=== PATIENT | female | born 1980 | race Caucasian/White ===

== ENCOUNTER 2017-10-03 06:54 | Emergency (ER) | payer OTHER ==
[2017-10-03] MEDS ORDERED: Ketorolac Tromethamine 30 MG/ML VIAL ONE (08:25)
[2017-10-03] MEDS ORDERED: Acetaminophen 325 MG TAB ONE (08:25)
--- NOTE | 2017-10-03 09:12 | CT ---
CT BRAIN WITHOUT CONTRAST: Date: 10/03/17 HISTORY: Trauma. Patient fell and hit back of head, headache. FINDINGS: Comparison made with exam of 07/24/15. No evidence of infarct, hemorrhage, midline shift, or abnormal extra-axial fluid collections are seen . The ventricular size is normal and the basilar cisterns are patent. The bony calvarium is intact. T he visualized paranasal sinuses and mastoid air cells are well aerated. 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 IMPRESSION: No CT evidence of acute intracranial process. POS: [facility]
--- NOTE | 2017-10-03 09:17 | RAD ---
LEFT HIP 2 VIEWS: Date: 10/03/17 HISTORY: Fall. Left hip pain. FINDINGS/IMPRESSION: No acute fracture or dislocation is seen. An IUD is present. POS: [facility]
--- NOTE | 2017-10-03 09:17 | RAD ---
LEFT SHOULDER 3 VIEWS: Date: 10/03/17 HISTORY: Fall. Left shoulder pain. FINDINGS/IMPRESSION: Comparison made with exam of 09/05/13. No acute fracture or dislocation is identified. POS: [facility]
== END 2017-10-03 09:49 | disposition home or self-care (01) ==
LOC: ERS 06:54
DX: S70.02XA Contusion of left hip, initial encounter (principal); S40.012A Contusion of left shoulder, initial encounter; S00.03XA Contusion of scalp, initial encounter; G43.909 Migraine, unspecified, not intractable, without status migrainosus; I10 Essential (primary) hypertension; Z79.899 Other long term (current) drug therapy; W01.0XXA Fall on same level from slipping, tripping and stumbling without subsequent striking against object, initial encounter
CPT/HCPCS: 70450; 96372; J1885

== ENCOUNTER 2017-11-30 12:33 | Outpatient (CLI) | payer OTHER | END 2017-11-30 12:34 | disposition home or self-care (01) | LOC: BICMRI 12:33 | PROVIDERS: ATTEND Psychiatry & Neurology Neurology | DX: G25.0 Essential tremor (principal); G25.5 Other chorea; R55 Syncope and collapse | CPT/HCPCS: 70551; 72040 ==

== ENCOUNTER 2018-04-26 09:10 | Outpatient (CLI) | payer OTHER ==
[2018-04-26] MEDS ORDERED: ISOVUE-370 76%-LOCM 1 ML ONE (10:40)
--- NOTE | 2018-04-26 12:16 | CT ---
CT ANGIOGRAM OF ABDOMINAL AORTA WITH BILATERAL LOWER EXTREMITY RUNOFF: Date: 04/26/18 HISTORY: Jose-Danlos syndrome. Fatigue. Weakness. Multiple falls. TECHNIQUE: CT angiogram of abdominal aorta and bilateral lower extremity runoff performed in the axial plane. Th ree-dimensional reformatted images are submitted for interpretation. FINDINGS: CHEST CT: Dependent atelectatic changes. There is appropriate arterial phase enhancement of the liver, spleen, pancreas, and adrenal glands. There is symmetric enhancement of the kidneys. No obstructive uropathy. There is nonspecific enhancement involving the gallbladder. No mesenteric mass, lymphadenopathy, free air, or free fluid. Limited evaluation of the alimentary ca nal by the lack of oral contrast administration. No evidence of bowel obstruction. CT PELVIS: Intrauterine device is noted. Uterus and right adnexal structures are unremarkable. Hypodensity in th e left adnexa measuring 4.1 x 3.2 cm has an attenuation coefficient of 4 Hounsfield units suggesting a left ovarian cyst. Trace amount of free fluid may be present in the pelvis. There are no lytic or blastic lesions in the osseous structures. CT ANGIOGRAM OF AORTA: Ascending thoracic aorta, abdominal aorta, and aortic bifurcation have appropriate enhancement and patito allen diameter. The celiac artery origin, superior mesenteric artery origin, inferior mesenteric deborah ry origin, and bilateral renal artery are unremarkable. Note, there are two right renal arteries and a solitary left renal artery. Aortic bifurcation is unremarkable. Both common iliac arteries, interna l iliac arteries, and external iliac arteries are patent. No significant stenosis or aneurysm. Right lower extremity: The entire right lower extremity arterial system is patent. No stenosis. No aneurysm. Left lower extremity: The entire left lower extremity arterial system is patent. No significant stenosis or aneurysm. IMPRESSION: 1. No evidence of aneurysm with regards to the aorta or either lower extremity arterial system. 2. Dependent atelectasis changes. 3. Probable left ovarian cyst. Follow-up ultrasound in 6-8 weeks is recommended to ensure resolution . POS: [facility]
== END 2018-04-26 09:11 | disposition home or self-care (01) ==
LOC: BICCT 09:10
PROVIDERS: ATTEND Internal Medicine Cardiovascular Disease
DX: Q79.6 Ehlers-Danlos syndromes (principal); I47.1 Supraventricular tachycardia
CPT/HCPCS: 75635

== ENCOUNTER 2018-04-29 13:11 | Emergency (ER) | payer OTHER ==
[2018-04-29 14:58] LABS: BHCG - Serum Negative (NEGATIVE); Pregs Control Background? CLEAR/WHITE (CLR/WHITE); Pregs Control Bar Appear? YES (CONTROL BAR)
[2018-04-29 15:10] LABS: Hemoglobin 13.6 g/dL (12.0-16.0); Mean Corpuscular HGB CONC 35.3 g/dL (32.0-36.0); Mean Platelet Volume 9.6 fL (7.4-10.4); Platelet Count 229 thou/uL (130-400); RBC Distribution Width 11.4 % (11.5-14.5); Red Blood Cell (RBC) Count 3.68 mill/uL (4.20-5.40); White Blood Cell (WBC) Count 6.5 thou/uL (4.8-10.8)
[2018-04-29 15:11] LABS: ALT (SGPT) 35 U/L (8-55); AST (SGOT) 25 U/L (5-34); Albumin 4.1 g/dL (3.5-5.0); Alkaline Phosphatase 65 U/L (40-150); Anion Gap 12 mmol/L (10-20); BUN (Urea Nitrogen) 4 mg/dL (7.0-18.7); Bilirubin, Total 0.3 mg/dL (0.2-1.2); CK (CPK) 77 U/L (29-168); Calc. Creatinine Clearance 0 mL/min (70-130); Calcium 9.2 mg/dL (7.8-10.44); Carbon Dioxide 28 mmol/L (22-29); Chloride 108 mmol/L (98-107); Estimated GFR-MDRD Greater than 90; Glucose 87 mg/dL (70-105); Potassium 4.1 mmol/L (3.5-5.1); Protein, Total 7.1 g/dL (6.0-8.3); Sodium 144 mmol/L (136-145)
[2018-04-29 15:31] LABS: #Basophils 0.1 thou/uL (0.0-0.2); #Eosinphils 0.2 thou/uL (0.0-0.7); #Monocytes 0.5 thou/uL (0.11-0.59); #Neutrophils 3.8 thou/uL (1.40-6.50); %Basophils 1.1 % (0.0-1.0); %Eosinophils 2.4 % (0.0-10.0); %Lymphocytes 30.9 % (21.0-51.0); %Neutrophils 57.6 % (42.0-75.0); PLT Morphology Comment Appears Adequate
[2018-04-29] MEDS ORDERED: Ketorolac Tromethamine 30 MG/ML VIAL ONE (15:41)
--- NOTE | 2018-04-29 15:46 | RAD ---
TWO VIEWS CHEST: DATE: 04/29/2018. PROVIDED CLINICAL HISTORY: Chest pain. FINDINGS: Cardiac and mediastinal silhouette is within normal limits. Lungs appear clear. No pleural fluid or pneumothorax apparent. IMPRESSION: No evidence for an acute cardiopulmonary process. POS: [facility]
--- NOTE | 2018-05-04 13:17 | EKG ---
Test Reason : Blood Pressure : / mmHG Vent. Rate : 072 BPM Atrial Rate : 072 BPM P-R Int : 114 ms QRS Dur : 070 ms QT Int : 404 ms P-R-T Axes : 048 -16 028 degrees QTc Int : 442 ms Normal sinus rhythm Normal ECG Confirmed by MIK KENNEY DO ([id number]), desk editor SMILEY QUEEN ([id number]) on 05/04/2018 1:17:24 PM Referred By: Confirmed By:MIK KENNEY DO
== END 2018-04-29 16:16 | disposition home or self-care (01) ==
LOC: ERS 13:11
DX: R00.2 Palpitations (principal); R07.89 Other chest pain; Q79.6 Ehlers-Danlos syndromes; G43.909 Migraine, unspecified, not intractable, without status migrainosus; I10 Essential (primary) hypertension; F17.210 Nicotine dependence, cigarettes, uncomplicated; Z79.899 Other long term (current) drug therapy
CPT/HCPCS: 71046; 80053; 82550; 84484; 84703; 85025; 93005; 96374; J1885

== ENCOUNTER 2018-05-29 15:22 | Emergency (ER) | payer OTHER ==
[2018-05-29 16:17] LABS: Hemoglobin 11.8 g/dL (12.0-16.0); Mean Corpuscular HGB CONC 33.1 g/dL (32.0-36.0); Mean Corpuscular Hemoglobin 33.9 pg (27.0-31.0); Mean Platelet Volume 8.9 fL (7.4-10.4); Platelet Count 257 thou/uL (130-400); RBC Distribution Width 10.9 % (11.5-14.5)
[2018-05-29 16:34] LABS: Band 2 % (5-11); Eosinophils 1 % (0-10); Lymphocytes 80 % (21-51); MDiff Complete? YES; Monocytes 4 % (0-10); Neutrophil 13 % (42-75); PLT Morphology Comment Appears Adequate
[2018-05-29 16:38] LABS: ALT (SGPT) 23 U/L (8-55); AST (SGOT) 20 U/L (5-34); Acetaminophen Less than 6.0 mcg/mL (10.0-30.0); Alcohol Less than 10 mg/dL (Less than 10); Alkaline Phosphatase 44 U/L (40-150); Anion Gap 10 mmol/L (10-20); BUN (Urea Nitrogen) 7 mg/dL (7.0-18.7); Bilirubin, Total 0.3 mg/dL (0.2-1.2); CK (CPK) 59 U/L (29-168); Calc. Creatinine Clearance 0 mL/min (70-130); Calcium 8.7 mg/dL (7.8-10.44); Carbon Dioxide 27 mmol/L (22-29); Chloride 108 mmol/L (98-107); Estimated GFR-MDRD 84; Globulin 2.7 g/dL (2.4-3.5); Glucose 95 mg/dL (70-105); Lipase 60 U/L (8-78); Potassium 3.8 mmol/L (3.5-5.1); Protein, Total 6.7 g/dL (6.0-8.3); Salicylate Less than 8.0 mg/dL (15.0-30.0); Sodium 141 mmol/L (136-145)
--- NOTE | 2018-05-29 16:41 | RAD ---
SINGLE VIEW OF THE CHEST: COMPARISON: 09/30/2015. HISTORY: Chest pain after a fall. FINDINGS: Single view of the chest shows a normal sized cardiomediastinal silhouette. There is no evidence of c onsolidation, mass, or pleural effusion. The bones are unremarkable. IMPRESSION: No evidence of acute cardiopulmonary disease. POS: [facility]
== END 2018-05-29 17:32 | disposition home or self-care (01) ==
LOC: ERS 15:22
DX: R07.89 Other chest pain (principal); I10 Essential (primary) hypertension; F17.210 Nicotine dependence, cigarettes, uncomplicated; Q79.6 Ehlers-Danlos syndromes; G43.909 Migraine, unspecified, not intractable, without status migrainosus; Z79.899 Other long term (current) drug therapy; W19.XXXA Unspecified fall, initial encounter
CPT/HCPCS: 36415; 71045; 80053; 80307; 82550; 83690; 84484; 85025; 93005

== ENCOUNTER 2018-07-12 13:46 | Day surgery (SDC) | payer OTHER ==
[2018-07-11 10:06] VITALS: BMI 18.3
[2018-07-12] MEDS ORDERED: Lidocaine 1% PF 5 ML VIAL ONE (15:15)
[2018-07-12] MEDS ORDERED: PROPOFOL 200 MG/20 ML VIAL ONE (15:15)
[2018-07-12 15:37] LABS: #Basophils 0.1 thou/uL (0.0-0.2); #Eosinphils 0.1 thou/uL (0.0-0.7); #Lymphocytes 2.5 thou/uL (1.20-3.40); #Monocytes 0.4 thou/uL (0.11-0.59); #Neutrophils 5.4 thou/uL (1.40-6.50); %Eosinophils 0.7 % (0.0-10.0); %Lymphocytes 29.7 % (21.0-51.0); %Monocytes 5.2 % (0.0-10.0); %Neutrophils 63.4 % (42.0-75.0); Hemoglobin 12.8 g/dL (12.0-16.0); Mean Corpuscular HGB CONC 33.6 g/dL (32.0-36.0); Mean Corpuscular Hemoglobin 34.6 pg (27.0-31.0); Mean Platelet Volume 8.8 fL (7.4-10.4); Platelet Count 306 thou/uL (130-400); Red Blood Cell (RBC) Count 3.68 mill/uL (4.20-5.40); White Blood Cell (WBC) Count 8.5 thou/uL (4.8-10.8)
[2018-07-12] MEDS ORDERED: Fentanyl 100 MCG/2 ML VIAL ONE ×2 (15:50→17:50)
[2018-07-12] MEDS ORDERED: Bacitracin Zinc Ointment 30 gm TUBE ONE (15:52)
[2018-07-12] MEDS ORDERED: Sodium Chloride 0.9% 0 ML ONE (15:52)
[2018-07-12] MEDS ORDERED: Bupivacaine PF 0.5% 30 ML VIAL ONE (15:53)
[2018-07-12 16:16] LABS: BHCG - Serum Negative (NEGATIVE); Pregs Control Background? CLEAR/WHITE (CLR/WHITE); Pregs Control Bar Appear? YES (CONTROL BAR)
[2018-07-12] MEDS ORDERED: Ketorolac Tromethamine 30 MG/ML VIAL ONE ×2 (17:31)
[2018-07-12] MEDS ORDERED: SUMAtriptan Succinate 50 MG TAB PO SCH (17:45)
--- NOTE | 2018-07-12 20:25 | OP ---
DATE OF PROCEDURE: 07/12/2018 PREOPERATIVE DIAGNOSIS: Foreign body radiodense palmar, ulnar left ring finger distal phalanx. PROCEDURES PERFORMED: 1. Digital nerve neuroplasty under magnification. 2. Foreign body removal, 3 x 0.5 x 1.5 mm glass, left ulnar distal phalanx aspect. TOURNIQUET TIME: 8 minutes. ESTIMATED BLOOD LOSS: 3 mL. ANESTHESIA: General LMA technique augmented by 10 mL of 0.5% Marcaine metacarpophalangeal block. DESCRIPTION OF PROCEDURE: After successful general endotracheal anesthesia, the limb was prepped and draped. We then did a time-out appropriately identifying the area and the finger. We then blocked with the 10 mL of 0.5% Marcaine MP joint level. The patient then had the C-arm brought to the field to confirm, where the mass was located, it was palmar and slightly more ulnar than central over the distal third of distal phalanx. We made an incision over the area that was 4 mm to 5 mm wide, dissected, and after about 2 to 3 dissection with the tenotomy scissors, we visualized and protected 1 of the terminal branches of the digital nerve and just radial to this, there was a glass piece that caused a against the dissecting scissors. We dissected around this and the glass was easily lifted and removed. Photograph was taken. The patient then had the C-arm brought back to the field. There was no further glass seen. We curetted the cavity on the skin created by the glass, which had its long axis oriented perpendicular to the skin. We then removed the glass, irrigated to further radiographs with the C-arm, did not see any mass, did not palpate any mass, did not visualize any mass either on radiographs or in the wound. Tourniquet was released. Hemostasis was obtained. Wound was closed with interrupted 4-0 nylon simple pattern. Bulky dressing was applied. The patient left the operating room without evidence of anesthetic operative complication. Job ID: [id number]
--- NOTE | 2018-07-12 20:46 | RAD ---
FOUR VIEWS OF THE LEFT FINGERS: 07/12/18 INDICATION: Removal of foreign body. IMPRESSION: Submitted images demonstrate no residual foreign body grossly evident. No acute fracture is evident. Fluoroscopic time was 19.1 seconds. Total exposure was 0.43 mGy. POS: [facility]
--- NOTE | 2018-07-14 06:55 | EKG ---
Test Reason : PREOP Blood Pressure : / mmHG Vent. Rate : 086 BPM Atrial Rate : 086 BPM P-R Int : 114 ms QRS Dur : 070 ms QT Int : 366 ms P-R-T Axes : 073 017 054 degrees QTc Int : 437 ms Poor data quality, interpretation may be adversely affected Normal sinus rhythm Normal ECG When compared with ECG of 29-MAY-2018 15:36, No significant change was found Confirmed by GRADY KNOWLES ([id number]) on 07/14/2018 6:54:51 AM Referred By: MARIE Confirmed By:GRADY KNOWLES
== END 2018-07-12 18:52 | disposition home or self-care (01) ==
LOC: SDC 13:46
PROVIDERS: ATTEND Orthopaedic Surgery Hand Surgery
PROC: 0KCD0ZZ Extirpation of Matter from Left Hand Muscle, Open Approach (ICD-10-PCS; principal; 2018-07-12)
DX: M79.5 Residual foreign body in soft tissue (principal); G43.909 Migraine, unspecified, not intractable, without status migrainosus; F17.210 Nicotine dependence, cigarettes, uncomplicated; G25.2 Other specified forms of tremor; Z79.899 Other long term (current) drug therapy; Z88.8 Allergy status to other drugs, medicaments and biological substances; W45.8XXA Other foreign body or object entering through skin, initial encounter
CPT/HCPCS: 36415; 76000; 84703; 85025; 85652; 93005; 93010; J1885; J2001; J2704; J3010; J3490; S0020

== ENCOUNTER 2018-07-16 06:44 | Emergency (ER) | payer OTHER ==
[2018-07-16 07:30] LABS: #Basophils 0.1 thou/uL (0.0-0.2); #Eosinphils 0.2 thou/uL (0.0-0.7); #Lymphocytes 1.9 thou/uL (1.20-3.40); #Monocytes 0.4 thou/uL (0.11-0.59); #Neutrophils 3.8 thou/uL (1.40-6.50); %Eosinophils 2.5 % (0.0-10.0); %Neutrophils 60.5 % (42.0-75.0); Hemoglobin 13.9 g/dL (12.0-16.0); Mean Corpuscular HGB CONC 32.9 g/dL (32.0-36.0); Mean Corpuscular Hemoglobin 33.8 pg (27.0-31.0); Mean Platelet Volume 8.9 fL (7.4-10.4); Platelet Count 291 thou/uL (130-400); RBC Distribution Width 10.8 % (11.5-14.5); Red Blood Cell (RBC) Count 4.11 mill/uL (4.20-5.40); White Blood Cell (WBC) Count 6.3 thou/uL (4.8-10.8)
[2018-07-16 07:31] LABS: Base Excess-Venous -0.7 mmol/L (-2.0 to 3.0); Bicarbonate (HCO3v) 25.3 mmol/L (22.0-28.0); CO2 Tension (PvCO2) 45.5 mmHg (40.0-50.0); Calcium, Ionized 1.12 mmol/L (See Comments:); Chloride 110 mmol/L (98-107); Hemoglobin - Calc 14.6 g/dL (12.0-16.0); O2 Tension (PvO2) 29.2 mmHg (35.0-45.0); Potassium 3.8 mmol/L (3.5-5.1); Sodium 143 mmol/L (138-145); T. Carbon Dioxide 26.7 mmol/L (22.0-28.0); pH (Venous) 7.353 (7.320-7.430)
[2018-07-16 07:40] LABS: BHCG - Serum Negative (NEGATIVE); Pregs Control Background? CLEAR/WHITE (CLR/WHITE); Pregs Control Bar Appear? YES (CONTROL BAR)
[2018-07-16 07:44] LABS: ALT (SGPT) 10 U/L (8-55); AST (SGOT) 13 U/L (5-34); Acetaminophen Less than 6.0 mcg/mL (10.0-30.0); Albumin 4.2 g/dL (3.5-5.0); Alcohol Less than 10 mg/dL (Less than 10); Alkaline Phosphatase 78 U/L (40-150); Anion Gap 12 mmol/L (10-20); BUN (Urea Nitrogen) 8 mg/dL (7.0-18.7); Bilirubin, Total 0.3 mg/dL (0.2-1.2); Calc. Creatinine Clearance 0 mL/min (70-130); Calcium 9.4 mg/dL (7.8-10.44); Carbon Dioxide 26 mmol/L (22-29); Chloride 107 mmol/L (98-107); Estimated GFR-MDRD 83; Glucose 114 mg/dL (70-105); Protein, Total 7.2 g/dL (6.0-8.3); Salicylate Less than 8.0 mg/dL (15.0-30.0); Sodium 141 mmol/L (136-145)
[2018-07-16] MEDS ORDERED: Morphine 4 MG/ML VIAL ONE ×3 (08:19→11:28)
[2018-07-16] MEDS ORDERED: Ondansetron PF 4 MG/2 ML Vial ONE (08:26)
[2018-07-16 08:31] LABS: Bilirubin Negative (Negative); Blood, Urine Negative (Negative); Clarity CLEAR (Clear); Glucose, Urine (Dipstick) Negative (Negative); Leukocyte Negative (Negative); Nitrite Negative (Negative); Protein, Urine (Dipstick) Negative (Neg-Trace); Specific Gravity, Urine 1.008 (1.002-1.036); Urobilinogen 0.2 mg/dL (0.2-1.0)
[2018-07-16 08:39] LABS: Amphetamine Detected (NotDetected); Barbiturates Screen Detected (NotDetected); Benzodiazepine Screen Detected (NotDetected); Cocaine Metabolite Screen Not Detected (NotDetected); Medtox Control Line Valid? VALID (VALID); Medtox Reader # READER 4; Methadone Not Detected (NotDetected); Methamphetamine Not Detected (NotDetected); Opiate Screen Not Detected (NotDetected); Oxycodone Screen Not Detected (NotDetected); Phencyclidine (PCP) Not Detected (NotDetected); THC/Cannabinoid Screen Not Detected (NotDetected); Tricyclic Screen Not Detected (NotDetected)
--- NOTE | 2018-07-16 09:53 | RAD ---
CHEST 1 VIEW: COMPARISON: 05/29/2018. HISTORY: Abnormal sensations in the body. FINDINGS: Normal cardiac silhouette. Lungs and pleural spaces are clear. No pneumothorax or osseous abnormali ties. IMPRESSION: No acute cardiopulmonary process. POS: [facility]
[2018-07-16] MEDS ORDERED: Lorazepam 2 MG/ML VIAL ONE (10:24)
[2018-07-16] MEDS ORDERED: Morphine 2 MG/ML SYRINGE ONE ×2 (11:27→11:31)
--- NOTE | 2018-07-16 11:32 | CT ---
CT ANGIOGRAM OF THE CHEST AND ABDOMEN: DATE: 07/16/2018. HISTORY: Pain, shortness of breath, nausea. TECHNIQUE: Axial CT imaging is obtained at 2.5 mm intervals from the thoracic inlet through the aortic bifurcati on with IV contrast using a CT angiogram protocol. Coronal and sagittal 3D reformatted imaging obtai jesika. FINDINGS: Partially imaged thyroid gland is enlarged and heterogeneous with subcentimeter hypodense nodules wit hin the left lobe. No lymphadenopathy in the axillary, mediastinal, or hilar regions noted. The ascending aorta, the origin of the great vessels, and the descending thoracic aorta demonstrate n o evidence for aneurysm or dissection. No pneumothorax is evident on either side. Minimal increased linear density is noted in the left lower lobe suggesting volume loss or scar. No discrete pulmonary parenchymal mass lesion or nodule noted. Review of osseous structures of the chest demonstrate no acute findings. Arterial phase imaging of the spleen and liver appears grossly unremarkable. Pancreas, gallbladder, adrenal glands, and kidneys demonstrate no acute findings. The pelvis is not imaged on this exam. Lack of oral contrast limits assessment of the bowel. Imaged bowel appears grossly unremarkable. Abdominal aorta demonstrates no evidence for aneurysm or dissection. Celiac axis, superior mesenteri c artery, and inferior mesenteric artery are patent. Two patent renal arteries noted on the right. Single patent left renal artery present. No lymphadenopathy is identified in the abdomen or pelvis. Review of the osseous structures of the abdomen demonstrates bilateral L5 pars defects. IMPRESSION: No evidence for aneurysm or dissection of the thoracic or abdominal aorta. POS: [facility]
--- NOTE | 2018-07-16 13:21 | MRI ---
CERVICAL SPINE MRI WITHOUT CONTRAST: DATE: 07/16/2018. COMPARISON: None. HISTORY: Tingling sensation in chest, radiculopathy. TECHNIQUE: Multiplanar, multisequence MR imaging of the cervical spine provided without contrast media. FINDINGS: The sagittal STIR imaging demonstrates no focal area of osseous marrow edema. Cervical vertebral body height and alignment appears within normal limits. No prevertebral soft tiss ue abnormality. C2-3: Intervertebral disk height and signal intensity within normal limits with no significant centr al canal or neural foraminal stenosis. C3-4: Minimal disk bulge with no central canal or neural foraminal stenosis. C4-5: Mild disk bulge. Partial effacement of ventral thecal sac. Mild facet and uncovertebral oste ophyte formation on the right. No significant central canal or neural foraminal stenosis. C5-6: No significant central canal or neural foraminal stenosis. C6-7: Mild disk bulge with small central disk protrusion partially effacing ventral thecal sac with no significant central canal or neural foraminal stenosis. C7-T1: Unremarkable. No focal area of abnormal signal intensity is identified within the cervical cord. Regional bone mar row signal intensity appears within normal limits. IMPRESSION: Mild degenerative changes of the cervical spine as detailed above. POS: [facility]
[2018-07-16] MEDS ORDERED: ISOVUE-370 76%-LOCM 1 ML ONE (16:55)
== END 2018-07-16 11:45 | disposition home or self-care (01) ==
LOC: ERS 06:44
DX: G62.9 Polyneuropathy, unspecified (principal); G43.909 Migraine, unspecified, not intractable, without status migrainosus; I10 Essential (primary) hypertension; F31.9 Bipolar disorder, unspecified; F41.9 Anxiety disorder, unspecified; F17.210 Nicotine dependence, cigarettes, uncomplicated; Z79.899 Other long term (current) drug therapy
CPT/HCPCS: 71045; 71275; 72141; 80053; 80306; 80307; 81003; 82330; 82803; 83735; 84443; 84484; 84703; 85025; 85379; 93005; 96361; 96374; 96375; 96376; J2060; J2270; J2405; Q9966

== ENCOUNTER 2019-02-14 08:05 | Outpatient (CLI) | payer OTHER ==
--- NOTE | 2019-02-14 08:29 | RAD ---
EXAM: Lumbar spine 2 views: HISTORY: Lumbar pain without injury COMPARISON: None FINDINGS: Probable remote fractures of the left L2 and L3 transverse processes. Probable pars defect at L5 without evidence for significant spondylolisthesis. No evidence for acute fracture or dislocation involving the visualized spine. There are disc osteophytosis and facet arthrosis changes. No evidence for malalignment. No evidence for a bone lesion. IMPRESSION: Spondylosis. Probable pars defect at L5 without evidence for significant spondylolisthesis.
--- NOTE | 2019-02-14 08:31 | RAD ---
Exam: Left shoulder 2 views: HISTORY: Left shoulder pain without injury COMPARISON: None FINDINGS: No evidence for fracture, dislocation, or other significant acute osseous abnormality. IMPRESSION: No significant acute process.
== END 2019-02-14 08:06 | disposition home or self-care (01) ==
LOC: BICRAD 08:05
PROVIDERS: ATTEND Family Medicine
DX: M25.512 Pain in left shoulder (principal); M54.5 Low back pain; M47.816 Spondylosis without myelopathy or radiculopathy, lumbar region
CPT/HCPCS: 72100

== ENCOUNTER 2019-05-20 11:05 | Inpatient (IN) | payer OTHER ==
[2019-05-20 11:58] LABS: #Basophils 0.1 thou/uL (0.0-0.2); #Eosinphils 0.2 thou/uL (0.0-0.7); #Lymphocytes 2.3 thou/uL (1.20-3.40); #Monocytes 0.3 thou/uL (0.11-0.59); %Basophils 1.9 % (0.0-1.0); %Eosinophils 3.8 % (0.0-10.0); %Lymphocytes 47.2 % (21.0-51.0); %Monocytes 6.3 % (0.0-10.0); %Neutrophils 40.9 % (42.0-75.0); Hemoglobin 12.6 g/dL (12.0-16.0); Mean Corpuscular HGB CONC 33.2 g/dL (32.0-36.0); Mean Corpuscular Hemoglobin 33.6 pg (27.0-31.0); Platelet Count 197 thou/uL (130-400); RBC Distribution Width 11.7 % (11.5-14.5); Red Blood Cell (RBC) Count 3.76 mill/uL (4.20-5.40); White Blood Cell (WBC) Count 4.8 thou/uL (4.8-10.8)
--- NOTE | 2019-05-20 11:59 | RAD ---
CHEST 1 VIEW: HISTORY: Altered mental status. COMPARISON: Radiograph . FINDINGS: The lungs are clear. No pneumothorax or effusion. Cardiac silhouette and mediastinal contours are w ithin normal limits. No acute osseous abnormality. IMPRESSION: No acute intrathoracic abnormality nor significant change. POS: [facility]
[2019-05-20] MEDS ORDERED: Lidocaine 1% w/Epinephrine 1:100K 20 ML VIAL ONE (12:04)
--- NOTE | 2019-05-20 12:09 | CT ---
EXAM: CT brain without contrast HISTORY: Fall in the restroom with laceration above the left eye. COMPARISON: 10/03/2017 TECHNIQUE: Multiple contiguous axial images were obtained and a CT of the brain without contrast. FINDINGS: The brain is normal in morphology and attenuation without focal lesions or confluent areas of infarction. There is no evidence of hydrocephalus, intracranial hemorrhage, or extra-axial fluid collection. The calvarium and overlying soft tissues are unremarkable. A left ZMC fracture is partially visualize d. Fluid is seen in the left maxillary sinus. IMPRESSION: 1. No evidence of acute intracranial abnormality 2. Left ZMC fracture
--- NOTE | 2019-05-20 12:10 | CT ---
EXAM: CT of the cervical spine without contrast HISTORY: Neck pain after head/facial trauma COMPARISON: None TECHNIQUE: Multiple contiguous axial images were obtained in a CT of the cervical spine without contr ast. Sagittal and coronal reformats were performed. FINDINGS: The vertebral bodies and intervertebral discs demonstrate normal height and alignment witho ut fracture or subluxation. No degenerative changes are present. No prevertebral soft tissue swelling is seen. The posterior facets are well aligned. Normal alignment of the skull base with the cervical spine is seen. The lung apices and cervical soft tissues are unremarkable. IMPRESSION: No evidence of acute osseous abnormality of the cervical spine.
[2019-05-20 12:14] LABS: Base Excess-Venous 2.8 mmol/L (-2.0 to 3.0); Bicarbonate (HCO3v) 31.3 mmol/L (22.0-28.0); CO2 Tension (PvCO2) 65.6 mmHg (40.0-50.0); Calcium, Ionized 1.22 mmol/L (See Comments:); Chloride 107 mmol/L (98-107); Sodium 147 mmol/L (138-145); T. Carbon Dioxide 33.3 mmol/L (22.0-28.0); vO2 Saturation-calc 50.2 % (60.0-85.0)
[2019-05-20 12:18] LABS: BHCG - Serum Negative (NEGATIVE); Pregs Control Background? CLEAR/WHITE (CLR/WHITE); Pregs Control Bar Appear? YES (CONTROL BAR)
[2019-05-20 12:20] LABS: Alcohol Less than 10 mg/dL (Less than 10); Salicylate Less than 8.0 mg/dL (15.0-30.0)
[2019-05-20 12:22] LABS: ALT (SGPT) 10 U/L (8-55); AST (SGOT) 19 U/L (5-34); Albumin 4.1 g/dL (3.5-5.0); Alkaline Phosphatase 53 U/L (40-110); Anion Gap 10 mmol/L (10-20); BUN (Urea Nitrogen) 11 mg/dL (7.0-18.7); Bilirubin, Total Less than 0.2 mg/dL (0.2-1.2); CK (CPK) 77 U/L (29-168); Calc. Creatinine Clearance 0 mL/min (70-130); Calcium 8.9 mg/dL (7.8-10.44); Carbon Dioxide 30 mmol/L (22-29); Chloride 109 mmol/L (98-107); Estimated GFR-MDRD 81; Globulin 2.9 g/dL (2.4-3.5); Glucose 93 mg/dL (70-105); Magnesium 1.9 mg/dL (1.6-2.6); Potassium 4.1 mmol/L (3.5-5.1); Sodium 145 mmol/L (136-145)
[2019-05-20] MEDS ORDERED: Acetaminophen 500 MG TAB ONE (12:33)
[2019-05-20 12:38] LABS: Thyroid Stimulating Hormone 1.6615 uIU/mL (0.35-4.94)
[2019-05-20] MEDS ORDERED: Bacitracin 1 PK ONE (13:11)
[2019-05-20 13:20] LABS: Digoxin 0.31 ng/mL (0.8-2.0)
[2019-05-20 13:25] LABS: Bilirubin Negative (Negative); Blood, Urine Negative (Negative); Clarity Clear (Clear); Glucose, Urine (Dipstick) Normal (Negative); Leukocyte Negative Leu/uL (Negative); Nitrite Negative (Negative); Protein, Urine (Dipstick) Negative (Neg-Trace); Urobilinogen Normal mg/dL (Less than 2)
[2019-05-20 13:36] LABS: Amphetamine Not Detected (NotDetected); Barbiturates Screen Detected (NotDetected); Benzodiazepine Screen Detected (NotDetected); Cocaine Metabolite Screen Not Detected (NotDetected); Medtox Control Line Valid? VALID (VALID); Medtox Reader # READER 1; Methadone Not Detected (NotDetected); Methamphetamine Not Detected (NotDetected); Opiate Screen Not Detected (NotDetected); Oxycodone Screen Not Detected (NotDetected); Phencyclidine (PCP) Not Detected (NotDetected); THC/Cannabinoid Screen Not Detected (NotDetected); Tricyclic Screen Detected (NotDetected)
[2019-05-20] MEDS ORDERED: Ketorolac Tromethamine 30 MG/ML VIAL ONE (13:58)
--- NOTE | 2019-05-20 14:33 | CT ---
EXAM: CT face without contrast HISTORY: Fall while going to the bathroom with left facial fracture COMPARISON: None TECHNIQUE: Multiple contiguous axial images were obtained and a CT of the face without contrast. Sagi ttal and coronal reformats were performed. FINDINGS: There is a moderately displaced left ZMC fracture. No displaced fracture of the zygomatic a rch is seen. Left periorbital facial soft tissue swelling is seen. The globes and retrobulbar soft tissues are unremarkable. There is no evidence of extraocular muscle entrapment. Fluid is seen in the left maxillary sinus. The other paranasal sinuses are well aerated without evide nce of opacification. The mastoid air cells are well aerated. IMPRESSION: Left ZMC fracture
[2019-05-20] MEDS ORDERED: Acetaminophen 1,000 MG in Premix Bag 1 BAG IVPB PRN (15:52)
[2019-05-20] MEDS ORDERED: Ondansetron PF 4 MG/2 ML Vial IVP PRN (15:52)
--- NOTE | 2019-05-20 15:56 | PDOC.HHP ---
Hospitalist HPI - History of Present Illness Somnolent, fall History of Present Illness: Ms. Lowery is a 39 y/o lady with PMH of Ehler Danlos Syndrome who presents to the ED after having a fall at home. She apparently fell and hit the left side of her face and left shoulder. Patient states she has pain around the left face and left shoulder area. She did not lose concsiousness. She apparently has been quite lethargic as per the mother the past few weeks. She apparently has neurological manifestations of her EDS including tremors and chronic migraines. She takes clonazepam, lunesta, imitrex, esgic, and fluoxetine which the mother states makes her quite lethargic and drowsy most days. Mother states that the dose of these medications was increased in the outpatient over the past couple of months. In the ED, she was found to have hypercarbic respiratory failure with pH of 7.25/CO2 65.6/HCO3 31. She was placed on BiPAP. CT of facial bones demonstrated a left zygomatic fracture. Denies cp, fever, chills, nausea, vomiting, or other associated symptoms. Hospitalist ROS - Review of Systems Constitutional: denies: fever, chills, sweats, weakness, malaise, other Eyes: denies: pain, vision change, conjunctivae inflammation, eyelid inflammation, redness, other ENT: denies: ear pain, ear discharge, nose pain, nose discharge, nose congestion , mouth pain, mouth swelling, throat pain, throat swelling, other Respiratory: reports: shortness of breath. denies: cough, dry, hemoptysis, SOB with excertion, pleuritic pain, sputum, wheezing, other Cardiovascular: denies: chest pain, palpitations, orthopnea, paroxysmal noc. dyspnea, edema, light headedness, other Gastrointestinal: denies: nausea, vomiting, abdominal pain, diarrhea, constipation, melena, hematochezia, other Genitourinary: denies: dysuria, frequency, incontinence, hematuria, retention, other Musculoskeletal: denies: neck pain, shoulder pain, arm pain, back pain, hand pain, leg pain, foot pain, other Skin: denies: rash, lesions, jamaal, bruising, other Neurological: reports: weakness, incoordination. denies: numbness, change in speech, confusion, seizures, other - Medication Medications: Lunesta TueMay 20, 2019 11:17 ARCADIO Hanna Jennifer TABLET : Strength - 3 mg : ORAL Patient Dose: 1 tab(s) Oral once a day (at bedtime). Imitrex oral TueMay 20, 2019 11:17 ARCADIO Hanna Jennifer TABLET : Strength - 100 mg : ORAL Patient Dose: 1 tab(s) Oral As Needed. losartan TueMay 20, 2019 11:17 ARCADIO Hanna Jennifer TABLET : Strength - 25 mg : ORAL Patient Dose: 25 mg Oral once a day (in the morning). clonazePAM TueMay 20, 2019 11:17 ARCADIO Hanna Jennifer TABLET : Strength - 2 mg : ORAL Patient Dose: 3 times a day. Esgic TueMay 20, 2019 11:17 ARCADIO Hanna Jennifer CAPSULE : Strength - 50 mg-325 mg-40 mg : ORAL Patient Dose: Unknown. FLUoxetine TueMay 20, 2019 11:17 ARCADIO Hanna Jennifer CAPSULE : Strength - 10 mg : ORAL Patient Dose: once a day. digoxin oral TueMay 20, 2019 11:45 ARCADIO Hanna Jennifer tablet : Strength - 125 mcg : ORAL Patient Dose: 25 mcg Oral As Needed. atenolol TueMay 20, 2019 11:46 ARCADIO Hanna Jennifer tablet : Strength - 25 mg : ORAL Patient Dose: 1 tab(s) Oral 2 times a day.25MG IN AM, 12.5MG IN PM. 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 Gastrointestinal: reports: no pertinent history Heme/Onc: reports: no pertinent history Hepatobiliary: reports: no pertinent history Psych: reports: Anxiety Musculoskeletal: reports: Other (Ehler Danlos Syndrome) Rheumatologic: reports: no pertinent history Infectious Disease: reports: no pertinent history ENT: reports: no pertinent history Renal/: reports: no pertinent history Endocrine: reports: no pertinent history Dermatology: reports: no pertinent history - Past Surgical History Past Surgical History: reports: Tonsillectomy, Other - Family History Family History: reports: no pertinent history - Social History Smoking Status: Current every day smoker Alcohol: reports: None Drugs: reports: Other (chronic pain medications, medications for anxiety, muscle relaxants) Living Situation: With Family Activity level: independent ambulation - Exam General Appearance: awake alert General - other findings: lethargic Eye: PERRL, anicteric sclera Eye - other findings: left laceration over lateral aspect of orbit ENT: no oropharyngeal lesions, moist mucosa ENT - other findings: mild bruising, left zygomatic area Neck: supple, symmetric, no JVD, no thyromegaly, no lymphadenopathy, no carotid bruit Heart: RRR, no murmur, no gallops, no rubs, normal peripheral pulses Respiratory: CTAB, no wheezes, no rales, no ronchi, normal chest expansion, no tachypnea, normal percussion Gastrointestinal: soft, non-tender, non-distended, normal bowel sounds, no palpable masses, no hepatomegaly, no splenomegaly, no bruit Extremities: no cyanosis, no clubbing, no edema Skin: normal turgor, no lesions, no rashes Neurological: cranial nerve grossly intact, normal sensation to touch, no weakness, no focal deficits, no new deficit Musculoskeletal: normal tone, normal strength, no muscle wasting Psychiatric: normal affect, A&O x 3, lethargic Hospitalist Results - Labs Result Diagrams: 05/20/19 11:44 05/20/19 11:43 Lab results: WBC 4.8 thou/uL (4.8-10.8) 05/20/19 11:44 Hgb 12.6 g/dL (12.0-16.0) 05/20/19 11:44 Hct 38.1 % (36.0-47.0) 05/20/19 11:44 MCV 101.0 fL (78.0-98.0) H 05/20/19 11:44 Plt Count 197 thou/uL (130-400) 05/20/19 11:44 Neutrophils % 40.9 % (42.0-75.0) L 05/20/19 11:44 VBG pCO2 65.6 mmHg (40.0-50.0) H* 05/20/19 12:12 VBG pO2 31.1 mmHg (35.0-45.0) L 05/20/19 12:12 Sodium 145 mmol/L (136-145) 05/20/19 11:43 Potassium 4.1 mmol/L (3.5-5.1) 05/20/19 11:43 Chloride 109 mmol/L (98-107) H 05/20/19 11:43 Carbon Dioxide 30 mmol/L (22-29) H 05/20/19 11:43 BUN 11 mg/dL (7.0-18.7) 05/20/19 11:43 Creatinine 0.79 mg/dL (0.6-1.1) 05/20/19 11:43 Glucose 93 mg/dL (70-105) 05/20/19 11:43 Lactic Acid 0.8 mmol/L (0.5-2.2) 05/20/19 11:43 Calcium 8.9 mg/dL (7.8-10.44) 05/20/19 11:43 Total Bilirubin Less than 0.2 mg/dL (0.2-1.2) L 05/20/19 11:43 AST 19 U/L (5-34) 05/20/19 11:43 ALT 10 U/L (8-55) 05/20/19 11:43 Alkaline Phosphatase 53 U/L (40-110) 05/20/19 11:43 Ammonia 49 umol/L (18-72) 05/20/19 11:44 Creatine Kinase 77 U/L (29-168) 05/20/19 11:43 Troponin I Less than 0.010 ng/mL (< 0.028) 05/20/19 11:44 Serum Total Protein 7.0 g/dL (6.0-8.3) 05/20/19 11:43 Albumin 4.1 g/dL (3.5-5.0) 05/20/19 11:43 Urine Ketones Negative mg/dL (Negative) 05/20/19 12:50 Urine Blood Negative (Negative) 05/20/19 12:50 Urine Nitrite Negative (Negative) 05/20/19 12:50 Ur Leukocyte Esterase Negative Joann/uL (Negative) 05/20/19 12:50 VITAL SIGNS Sun May 20, 2019 14:57 ARCADIO Hanna, Bushra BP: 140/99, Pulse: 52, Resp: 16, Pain: 7, O2 sat: 100, Time: 05/20/2019 14:57. - EKG Interpretation EK lead EKG shows normal sinus rhythm, Rate (beats per minute): 61, Interpretation: normal EKG, Conduction normal, ST segments normal, T waves normal, [place] normal, Clinical impression: Normal EKG. - Radiology Interpretation Chest x-ray Status: report reviewed by me Hospitalist H&P A/P - Problem (1) Acute respiratory failure with hypercapnia Code(s): J96.02 - ACUTE RESPIRATORY FAILURE WITH HYPERCAPNIA Status: Acute (2) Polypharmacy Code(s): Z79.899 - OTHER [facility] [facility] (CURRENT) DRUG THERAPY Status: Acute (3) Respiratory acidosis Code(s): E87.2 - ACIDOSIS Status: Acute (4) Fracture of left zygomatic arch Code(s): S02.40FA - ZYGOMATIC FRACTURE, LEFT SIDE, INIT Status: Acute (5) Left shoulder pain Code(s): M25.512 - PAIN IN LEFT SHOULDER Status: Acute (6) Jose-Danlos syndrome Code(s): Q79.60 - JOSE-DANLOS SYNDROME, UNSPECIFIED Status: Acute (7) Anxiety Code(s): F41.9 - ANXIETY DISORDER, UNSPECIFIED Status: Acute (8) Tremor due to disorder of central nervous system Code(s): R25.1 - TREMOR, UNSPECIFIED; G96.9 - DISORDER OF CENTRAL NERVOUS SYSTEM , UNSPECIFIED Status: Acute - Plan Plan: Admit to IMCU for acute hypercapnic RF. Consult pulmonary team for BiPAP optimization. Continue with BiPAP, ABG repeat tonight This is all contributory to polypharmacy of her home benzos, muscle relaxants, and headache medication Will likely need to decrease dose of benzos for her tremor symptoms and avoid barbituate for headache medicine Will discuss with pharmacy about these medications Left zygomatic arch fracture, ED spoke with Dr. Wilkes, will follow in the outpatient, supportive pain control for now XR of left shoulder Avoid sedative agents. IV Tylenol for fracture related pain. DVT Prophylaxis: SCDs Code status: Full ACP: Mother is surrogate decision maker Dispo: Admit to IMCU. Correction of hypercarbia. Avoid sedative agents for now.
[2019-05-20] MEDS ORDERED: Acetaminophen 325 MG Suppository PR PRN (16:22)
[2019-05-20 16:29] LABS: Actual Bicarbonate (HCO3a) 24.7 mEq/L (22-28); Analyzer IN Cardio ER; Base Excess (BEa) -0.9 mEq/L (-2.0 to +3.0); CO2 Tension 44.5 mmHg (35.0-45.0); Calcium, Ionized 1.16 mmol/L (1.12-1.30); Carboxyhemoglobin (COHb) 1.5 gm% (0.0-3.0); Hemoglobin (Hb) 12.1 g/dL (12.0-16.0); O2 Tension (PaO2) 84.7 mmHg (80.0-100.0); Potassium - ABG Lab 3.71 mmol/L (3.70-5.30); pH, Arterial 7.36 (7.35-7.45)
--- NOTE | 2019-05-20 16:29 | RAD ---
3 views left shoulder: 05/20/2019 COMPARISON: none available HISTORY: Fall, trauma, pain FINDINGS: No fracture or dislocation. No radiopaque foreign body or subcutaneous gas. There is no wid ening of the acromioclavicular or coracoclavicular interspace. IMPRESSION: No acute findings.
[2019-05-20 16:34] LABS: Puncture Site RRA
[2019-05-20 16:35] LABS: ALV-art Gradient 9.405 (0-20)
[2019-05-20 19:40] VITALS: BMI 19.5
[2019-05-20] MEDS ORDERED: predniSONE 20 MG TAB PO SCH (20:15)
[2019-05-20] MEDS: Ketorolac Tromethamine 30 MG/ML VIAL IVP PRN (20:53)
[2019-05-20] MEDS: Acetaminophen 325 MG TAB PO PRN (20:54)
[2019-05-20] MEDS: Sodium Chloride 0.9% 1,000 ML IV SCH (20:55)
[2019-05-21] MEDS: Sodium Chloride 0.9% 1,000 ML IV SCH (02:07)
[2019-05-21 04:10] LABS: Band 1 % (5-11); Hemoglobin 12.2 g/dL (12.0-16.0); Lymphocytes 4 % (21-51); MDiff Complete? YES; Mean Corpuscular HGB CONC 33.5 g/dL (32.0-36.0); Mean Corpuscular Hemoglobin 33.8 pg (27.0-31.0); Mean Platelet Volume 9.3 fL (7.4-10.4); Neutrophil 95 % (42-75); Platelet Count 204 thou/uL (130-400); Platelet Morphology Comment Appears Adequate; RBC Distribution Width 11.8 % (11.5-14.5); Red Blood Cell (RBC) Count 3.62 mill/uL (4.20-5.40); White Blood Cell (WBC) Count 8.9 thou/uL (4.8-10.8)
[2019-05-21 04:24] LABS: Albumin 3.7 g/dL (3.5-5.0); Globulin 2.7 g/dL (2.4-3.5)
[2019-05-21 04:48] LABS: ALT (SGPT) 9 U/L (8-55); AST (SGOT) 13 U/L (5-34); Alkaline Phosphatase 57 U/L (40-110); Anion Gap 11 mmol/L (10-20); BUN (Urea Nitrogen) 11 mg/dL (7.0-18.7); Bilirubin, Total 0.2 mg/dL (0.2-1.2); Calc. Creatinine Clearance 92 mL/min (70-130); Calcium 8.3 mg/dL (7.8-10.44); Carbon Dioxide 26 mmol/L (22-29); Chloride 108 mmol/L (98-107); Estimated GFR-MDRD Greater than 90; Glucose 144 mg/dL (70-105); Potassium 3.8 mmol/L (3.5-5.1); Protein, Total 6.4 g/dL (6.0-8.3); Sodium 141 mmol/L (136-145)
[2019-05-21] MEDS: Acetaminophen 325 MG TAB PO PRN (07:27)
[2019-05-21] MEDS: Ketorolac Tromethamine 30 MG/ML VIAL IVP PRN (07:28)
[2019-05-21] MEDS ORDERED: predniSONE 20 MG TAB PO SCH (08:00)
[2019-05-21 10:24] VITALS: TEMP 99.6
[2019-05-21] MEDS ORDERED: clonazePAM 1 MG TAB PO SCH (15:00)
--- NOTE | 2019-05-21 16:24 | PDISCHARGE ---
Discharge - Disposition Disposition: HOME - Patient Instructions Pre-Printed Education: Fall Prevention in the Home, Adult, [id number] Additional Instructions: Will d/c esgic for now. I have called Dr. Tovar's office and spoke with nurse, they will follow on May.28 and will call for appointment scheduling. Care Plan Goals: FOCUS: Transition from Acute Care after Discharge GOAL: Successful transition to care in the community YOUR TASKS: (1) review all information outlined in your discharge packet (2) follow any instructions outlined in your discharge packet (3) contact your primary care provider if you have questions or need additional assistance - Referrals and PCP Follow-Up Referrals and PCP Follow-Up: Constance Wilkes DDS [Active] - LARRY TOVAR MD [Family Provider] - (Dr. Tovar's office will call you to schedule an appointment for . ) - Activity Instructions Activity:: Activity as Tolerated - Nourishment Instructions Nourishment:: Regular Diet - Equipment/Supply Instructions Equipment/Supplies:: Not Applicable Course - Course Orders, Labs, Meds: Presented with lethargy, shortness of breath, and fall. Admitted for acute hypercarbic respiratory failure. Origin of failure, respiratory acidosis on blood gas. Patient placed on BiPAP therapy and showed improvement in overall acidosis. Patient takes multiple medications at home including benzodiazepine, barbituate combo headache medication, muscle relaxants, chronic pain medication. Polypharamcy likely contributory to symptoms. I personally called her PCP office, Dr. Tovar, and discussed the case with his nurse. We will attempt to remove Esgic, which she takes for chronic migraines, and further dose optimization will be required in the outpatient so that this problem can be avoided in the future. We have scheduled at appointment for her on May.28 for follow up and for her medications to be addressed. 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 Further dose reduction will be needed in outpatient over a long taper. At the time of discharge, patient noted improvement in breathing and overall acidosis had resolved. CT facial bones show Left zygomatic fracture. Dr. Wilkes, oral/maxifillofacial booneron has been called from ED and information regarding follow up to be provided for appointment in 2 weeks. 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 - JOSE-DANLOS SYNDROME, UNSPECIFIED Status: Acute (7) Anxiety Code(s): F41.9 - ANXIETY DISORDER, UNSPECIFIED Status: Acute (8) Tremor due to disorder of central nervous system Code(s): R25.1 - TREMOR, UNSPECIFIED; G96.9 - DISORDER OF CENTRAL NERVOUS SYSTEM , UNSPECIFIED Status: Acute Total time spent on discharge planning and mangement greater than 30 minutes FMR OB H&P: Medications - Current Home Medications: Medication Instructions Recorded Confirmed Type Eszopiclone [Lunesta] 3 mg PO HS 07/25/15 05/20/19 History Promethazine [Phenergan] 25 mg PO BID PRN 07/25/15 05/20/19 History SUMAtriptan Succinate [Imitrex] 100 mg PO Q2HR PRN 07/25/15 05/20/19 History Atenolol 25 mg PO DAILY 07/11/18 05/20/19 History Lisdexamfetamine Dimesylate 40 mg PO DAILY 07/11/18 05/20/19 History [Vyvanse] Losartan Potassium 25 mg PO DAILY 07/11/18 05/20/19 History tiZANidine HCl [Tizanidine HCl] 4 mg PO TID 07/11/18 05/20/19 History FLUoxetine HCl [Prozac] 20 mg PO DAILY 05/20/19 05/20/19 History Gabapentin 300 mg PO TID 05/20/19 05/20/19 History HYDROcodone/Acetaminophen [[place] 1 each PO Q6H PRN 05/20/19 05/20/19 History 7.5-325 Tablet] clonazePAM [Klonopin] 2 mg PO TID 05/20/19 05/20/19 History Allergies/Adverse Reactions: Allergies Allergy/AdvReac Type Severity Reaction Status Date / Time cyclobenzaprine Allergy heart race Verified 05/20/19 19:51 [From Flexeril] levetiracetam Allergy Verified 05/20/19 19:51 metaxalone [From Skelaxin] Allergy increase Verified 05/20/19 19:51 heart rate methocarbamol Allergy mirgranes Verified 05/20/19 19:51 prochlorperazine Allergy burning Verified 05/20/19 19:51 [From Compazine] sensation prochlorperazine edisylate Allergy Verified 05/20/19 19:51 [From Compazine] prochlorperazine maleate Allergy Verified 05/20/19 19:51 [From Compazine] topiramate [From Topamax] Allergy mood Verified 05/20/19 19:51 swings,
[2019-05-22] MEDS ORDERED: LISDEXAMFETAMINE DIMESYLATE 40 MG PO SCH (09:00)
[2019-05-22] MEDS ORDERED: FLUoxetine HCl 20 MG CAP PO SCH (09:00)
== END 2019-05-21 10:51 | disposition home or self-care (01) | DRG 189 ==
LOC: ERS 11:05 → IMCU/EMU 18:56
PROVIDERS: ADMIT Internal Medicine; ATTEND Internal Medicine
DX: J96.02 Acute respiratory failure with hypercapnia (principal); S02.40FA Zygomatic fracture, left side, initial encounter for closed fracture; E87.2 Acidosis; Q79.60 Ehlers-Danlos syndrome, unspecified; T42.4X5A Adverse effect of benzodiazepines, initial encounter; G43.909 Migraine, unspecified, not intractable, without status migrainosus; W01.10XA Fall on same level from slipping, tripping and stumbling with subsequent striking against unspecified object, initial encounter; Z90.89 Acquired absence of other organs; F41.9 Anxiety disorder, unspecified; R25.1 Tremor, unspecified; G96.9 Disorder of central nervous system, unspecified; F17.210 Nicotine dependence, cigarettes, uncomplicated
CPT/HCPCS: 36415; 70450; 70486; 71045; 72125; 80053; 80162; 80306; 80307; 81003; 82140; 82330; 82550; 82803; 82805; 83605; 83735; 84443; 84484; 84703; 85007; 85025; 85027; 85652; 86140; 93005; 94660; A4353; J1885; J7512

== ENCOUNTER 2019-10-15 08:23 | Emergency (ER) | payer OTHER ==
[2019-10-15] MEDS ORDERED: HYDROcodone/Acetaminophen 5/325 mg Tablet ONE (09:04)
[2019-10-15] MEDS ORDERED: Ketorolac Tromethamine 30 MG/ML VIAL ONE (09:30)
[2019-10-15] MEDS ORDERED: Fentanyl 100 MCG/2 ML VIAL ONE (09:33)
[2019-10-15] MEDS ORDERED: Lorazepam 2 MG/ML VIAL ONE (09:33)
[2019-10-15] MEDS ORDERED: Ondansetron ODT 4 MG TAB ONE ×2 (10:05→10:06)
[2019-10-15] MEDS ORDERED: diphenhydrAMINE 25 MG CAP ONE (10:30)
--- NOTE | 2019-10-15 11:32 | RAD ---
LEFT SHOULDER 3 VIEWS: HISTORY: Pain following injury from a fall. COMPARISON: 05/20/2019. FINDINGS: No fracture or dislocation or other acute process. Stable from prior study. IMPRESSION: Unremarkable left shoulder. POS: [facility]
--- NOTE | 2019-10-15 11:34 | RAD ---
RIGHT KNEE 4 VIEWS: HISTORY: Right knee pain following injury from a fall. FINDINGS/IMPRESSION: No fracture, dislocation, or other acute osseous process. POS: [facility]
--- NOTE | 2019-10-15 11:41 | CT ---
BRAIN CT WITHOUT IV CONTRAST: HISTORY: Injury from fall. COMPARISON: 05/20/2019. FINDINGS: Evidence for old left orbital and facial and zygomatic arch fractures. No focal mass or midline shif t. No intra- or extraaxial hemorrhage. IMPRESSION: No acute intracranial process. No mass or bleed. Evidence for old left facial, orbital, and zygomat ic arch fractures which were acute on the 05/20/2019 study. POS: [facility]
--- NOTE | 2019-10-15 11:42 | CT ---
CERVICAL SPINE CT SCAN WITHOUT IV CONTRAST: HISTORY: Injury from a fall. FINDINGS: No fracture, dislocation, or significant malalignment. IMPRESSION: Unremarkable cervical spine CT. POS: [facility]
== END 2019-10-15 10:51 | disposition home or self-care (01) ==
LOC: ERS 08:23
DX: S00.03XA Contusion of scalp, initial encounter (principal); S40.012A Contusion of left shoulder, initial encounter; S80.01XA Contusion of right knee, initial encounter; F07.81 Postconcussional syndrome; R51 Headache; R11.2 Nausea with vomiting, unspecified; G43.909 Migraine, unspecified, not intractable, without status migrainosus; I10 Essential (primary) hypertension; F31.9 Bipolar disorder, unspecified; F41.9 Anxiety disorder, unspecified; F17.210 Nicotine dependence, cigarettes, uncomplicated; Q79.60 Ehlers-Danlos syndrome, unspecified; Z79.899 Other long term (current) drug therapy; W18.30XA Fall on same level, unspecified, initial encounter; Y92.091 Bathroom in other non-institutional residence as the place of occurrence of the external cause
CPT/HCPCS: 70450; 72125; 96372; J1885; J2060; J3010; Q0162; Q0163

== ENCOUNTER 2019-12-22 15:13 | Observation (INO) | payer OTHER ==
[2019-12-22 15:34] LABS: Base Excess-Venous -0.4 mmol/L (-2.0 to 3.0); Bicarbonate (HCO3v) 24.2 mmol/L (22.0-28.0); CO2 Tension (PvCO2) 38.5 mmHg (40.0-50.0); Calcium, Ionized 1.01 mmol/L (See Comments:); Chloride 110 mmol/L (98-107); Hemoglobin - Calc 10.2 g/dL (12.0-16.0); Potassium 3.3 mmol/L (3.5-5.1); Sodium 145 mmol/L (138-145); T. Carbon Dioxide 25.3 mmol/L (22.0-28.0); vO2 Saturation-calc 99.7 % (60.0-85.0)
[2019-12-22 15:47] LABS: #Eosinphils 0.2 thou/uL (0.0-0.7); #Monocytes 0.6 thou/uL (0.11-0.59); #Neutrophils 3.5 thou/uL (1.40-6.50); %Basophils 0.5 % (0.0-1.0); %Eosinophils 2.4 % (0.0-10.0); %Lymphocytes 41.5 % (21.0-51.0); %Monocytes 7.8 % (0.0-10.0); %Neutrophils 47.8 % (42.0-75.0); Hemoglobin 10.5 g/dL (12.0-16.0); Mean Corpuscular HGB CONC 32.3 g/dL (32.0-36.0); Mean Corpuscular Hemoglobin 32.4 pg (27.0-31.0); Mean Platelet Volume 8.8 fL (7.4-10.4); Platelet Count 183 thou/uL (130-400); RBC Distribution Width 13.5 % (11.5-14.5); Red Blood Cell (RBC) Count 3.23 mill/uL (4.20-5.40); White Blood Cell (WBC) Count 7.3 thou/uL (4.8-10.8)
[2019-12-22 15:58] LABS: BHCG - Serum Negative (NEGATIVE); Pregs Control Background? CLEAR/WHITE (CLR/WHITE); Pregs Control Bar Appear? YES (CONTROL BAR)
[2019-12-22 16:08] LABS: Bacteria/HPF None Seen HPF (None Seen); Bilirubin Negative (Negative); Blood, Urine Trace (Negative); Clarity Clear (Clear); Glucose, Urine (Dipstick) Normal (Negative); Ketone, Urine Negative (Negative); Leukocyte Negative Leu/uL (Negative); Nitrite Negative (Negative); Protein, Urine (Dipstick) 30 mg/dL (Neg-Trace); RBC/HPF 0-3 HPF (0-3); Squamous Epithelial 0-3 HPF (0-3); Urobilinogen Normal mg/dL (Less than 2); WBC/HPF 0-3 HPF (0-3); pH, Urine 5.5 (5.0-9.0)
[2019-12-22 16:09] LABS: Specific Gravity, Urine Greater than 1.060 (1.002-1.036)
[2019-12-22 16:19] LABS: Alcohol Less than 10 mg/dL (Less than 10); Salicylate Less than 8.0 mg/dL (15.0-30.0)
[2019-12-22 16:21] LABS: ALT (SGPT) 11 U/L (8-55); AST (SGOT) 17 U/L (5-34); Albumin 3.9 g/dL (3.5-5.0); Alkaline Phosphatase 60 U/L (40-110); Anion Gap 12 mmol/L (10-20); BUN (Urea Nitrogen) 10 mg/dL (7.0-18.7); Bilirubin, Total 0.4 mg/dL (0.2-1.2); CK (CPK) 140 U/L (29-168); Calc. Creatinine Clearance 0 mL/min (70-130); Calcium 8.2 mg/dL (7.8-10.44); Carbon Dioxide 25 mmol/L (22-29); Chloride 106 mmol/L (98-107); Digoxin 0.44 ng/mL (0.8-2.0); Estimated GFR-MDRD 77; Globulin 2.7 g/dL (2.4-3.5); Glucose 90 mg/dL (70-105); Lipase 39 U/L (8-78); Potassium 3.6 mmol/L (3.5-5.1); Protein, Total 6.6 g/dL (6.0-8.3); Sodium 139 mmol/L (136-145)
[2019-12-22 16:23] LABS: Thyroid Stimulating Hormone 2.1691 uIU/mL (0.35-4.94)
[2019-12-22 16:27] LABS: Amphetamine Not Detected (NotDetected); Barbiturates Screen Detected (NotDetected); Benzodiazepine Screen Detected (NotDetected); Cocaine Metabolite Screen Not Detected (NotDetected); Medtox Control Line Valid? VALID (VALID); Medtox Reader # READER 4; Methadone Not Detected (NotDetected); Methamphetamine Not Detected (NotDetected); Opiate Screen Detected (NotDetected); Oxycodone Screen Not Detected (NotDetected); Phencyclidine (PCP) Not Detected (NotDetected); THC/Cannabinoid Screen Not Detected (NotDetected); Tricyclic Screen Detected (NotDetected)
[2019-12-22 16:37] LABS: INR-International Normal Ratio 1.1; PTT 24.9 sec (22.9-36.1); Prothrombin Time 14.1 sec (12.0-14.7)
[2019-12-22] MEDS ORDERED: Senokot S 8.6-50 MG TAB PO PRN (17:30)
[2019-12-22] MEDS ORDERED: Acetaminophen 325 MG TAB PO PRN (17:30)
[2019-12-22 17:55] LABS: Color Of CSF Supernatant COLORLESS (Colorless); Tube # 2; Unspun CSF Color COLORLESS (Colorless)
[2019-12-22 18:02] LABS: CSF Source CSF; Clarity Clear (Clear); Tube # 4
[2019-12-22 18:12] LABS: CSF, Glucose 62 mg/dl (40-70); CSF, Protein 37 mg/dL (15-40)
[2019-12-22] MEDS: Sodium Chloride 0.9% 1,000 ML IV SCH (22:29)
[2019-12-22] MEDS: Famotidine 20 MG TAB PO SCH (22:29)
[2019-12-22 22:45] VITALS: BMI 23.5
--- NOTE | 2019-12-22 23:02 | HP ---
PRIMARY CARE PHYSICIAN: Dr. Grover until he retired. The patient has not established care with a new PCP. HISTORY OF PRESENT ILLNESS: Ms. Lowery is a 39-year-old female, who reported to the emergency room today via EMS for altered mental status. Mother is in the room and reports that the patient was more lethargic than normal yesterday. Typically has a nap about 4 hours in the afternoon, but she reports that she did not sleep well the night before, so she was sleeping for about 12 hours yesterday. Mother reports that today she got up to her normal self, she walked outside, was feeding the birds, smoked a cigarette and then she some time later found her in the hallway. Mother reports that she has been having syncopal type episodes, where she will fall backwards. 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 She is on multiple medications, most of which contribute to her being somewhat sedated throughout the day. Her mother reports that she has not been able to work and she depends on her mom quite a bit to help with her three children and chores and meals normally. Mother denies any reason to believe that she inadvertently took too much of one of her scheduled medications. She says she smokes about a quarter pack of cigarettes a day, but denies any alcohol. No known drug use. When she got to the emergency room today, she was a little mildly hypotensive, a little bradycardic and was obtunded. She had some mild hypoxia in the low 90s, which improved with some nasal cannula O2. Her workup in the emergency room has been largely unremarkable. EKG showed heart rate of 65, normal sinus rhythm, no ischemic changes were found. Chemistry, largely unremarkable. Urine, trace of protein and trace of blood. They did an LP in the emergency room and so far has come back negative. She does take digoxin every day, it is subtherapeutic at 0.44. Urine drug screen is positive for opiates, barbiturates, tricyclics, and benzodiazepines, all of which she takes as a prescription at home. Her plasma alcohol was less than 10. She will be admitted to the stroke unit for further evaluation. REVIEW OF SYSTEMS: The patient was obtunded during exam. Vital signs were stable. She was protecting her airway, but did not answer any questions. Her mother denies that she had been running any fever. Denies that she has been complaining of any pain outside of her normal. Denied that she had any nausea or vomiting that she witnessed, and all other systems were unable to obtain due to the patient's altered status. MEDICATIONS: The patient medication per the ER record, 1. Lunesta 3 mg p.o. once a day at bedtime. 2. Imitrex 100 mg p.o. as needed. 3. Losartan 25 mg p.o. once a day. 4. Clonazepam 2 mg t.i.d. 5. Esgic 50/325/40 p.r.n. 6. Fluoxetine 10 mg p.o. once a day. 7. Digoxin 25 mcg p.o. as needed. 8. Atenolol 25 mg in the a.m., 12.5 mg in the p.m. 9. Flexeril 10 mg every 8 hours as needed. 10. Zofran 4 mg p.o. every 8 hours as needed. ALLERGIES: TO COMPAZINE, KEFLEX, KEPPRA, , METHOCARBAMOL, AND TOPIRAMATE. PAST MEDICAL HISTORY: Please see HPI. PAST SURGICAL HISTORY: Has had ablation for the SVT. Has had ear tubes, tonsillectomy, adenoidectomy, and right knee surgery. PSYCHIATRIC HISTORY: Anxiety, bipolar. SOCIAL HISTORY: Lives with family. Has three children. She is a smoker, smokes a pack a day every 4 to 5 days. Denies any alcohol or drug use. PHYSICAL EXAMINATION: VITAL SIGNS: Blood pressure 119/77, pulse is 58, respiratory rate is 15, temperature is 97.9, and pulse ox is 100% on 2 L. CONSTITUTIONAL: She withdraws from pain, but does not awake easily. HEENT: Head is atraumatic and normocephalic. Eyes, pupils are equally round and reactive to light. ENT, mouth exam is normal. Mucous membranes are moist. NECK: Trachea is midline. RESPIRATORY/CHEST: She has a little rhonchi, scattered. Chest expansion is equal. CARDIOVASCULAR: Sinus mony with symmetric radial pulses and pedal pulses. ABDOMEN: Nontender. Bowel sounds are heard. EXTREMITIES: Upper extremity passive range of motion is normal. Radial pulses are normal. Lower extremity passive range of motion is normal. Pedal pulses are normal. There is no edema noted. NEUROLOGIC: The patient is obtunded. On exam, she was minimally responsive to pain. Per the ER, she did awake in the ER for brief period of time, open her eyes, but does not respond to commands. PLAN/ASSESSMENT: 1. Altered mental status, certainly could be possible that she is taking too many medications that cause her to be drowsy. The patient was given 500 mL of fluid and in the ER, which did not really improve her symptoms. We will observe her overnight, have some maintenance fluids, normal saline at 75 mL per hour. We will obtain an MRI of the brain, echocardiogram, especially with the syncopal episodes that her mother has been mentioned and we will do a carotid Doppler. If she wakes tomorrow, then potentially PT/OT could be ordered to evaluate. We will put a Neurology client development consultant. She has seen Dr. Anderson in the past. We will taper her medications back slowly once she is less obtunded. We would appreciate input from Neurology. 2. History of the Ehler-Danlos syndrome. Medications for this probably contribute some to the sedation. We will taper back on as needed. 3. History of migraine. We will hold her home medications. 4. Recheck lab values in the morning. 5. History of hypertension. Orthostatic vital signs will be added. We will check her vital signs and restart her home medications as needed. 6. Deep venous thrombosis and gastrointestinal prophylaxis have been started. 7. Case discussed with Dr. Lau, who agrees with plan. 8. Hospital course dependent on clinical findings. Job ID: [id number]
--- NOTE | 2019-12-22 23:59 | ULT ---
EXAM: Carotid ultrasound HISTORY: Syncope COMPARISON: None TECHNIQUE: Multiplanar grayscale and color Doppler images were obtained in a carotid ultrasound. Spec tral analysis of the Doppler waveforms were performed. FINDINGS: No significant plaque is visualized in either internal carotid artery. No significant plaque is seen in either common carotid artery. The Doppler waveforms are normal in the visualized vessels. Peak systolic velocity in the right internal carotid artery 70 cm/s. Peak systolic velocity in the right common carotid artery 100 cm/s. The right ICA/CCA ratio is 0.7. Peak systolic velocity in the left internal carotid artery 75 cm/s. Peak systolic velocity in the left common carotid artery 104 cm/s. The left ICA/CCA ratio is 0.7. Both vertebral arteries demonstrate antegrade flow without focal stenosis IMPRESSION: No evidence of hemodynamically significant stenosis.
[2019-12-23 04:49] LABS: #Basophils 0.1 thou/uL (0.0-0.2); #Eosinphils 0.2 thou/uL (0.0-0.7); #Lymphocytes 2.7 thou/uL (1.20-3.40); #Monocytes 0.7 thou/uL (0.11-0.59); #Neutrophils 7.9 thou/uL (1.40-6.50); %Basophils 0.7 % (0.0-1.0); %Lymphocytes 23.2 % (21.0-51.0); %Monocytes 5.9 % (0.0-10.0); %Neutrophils 68.2 % (42.0-75.0); Hemoglobin 11.2 g/dL (12.0-16.0); Mean Corpuscular HGB CONC 31.6 g/dL (32.0-36.0); Mean Corpuscular Hemoglobin 30.4 pg (27.0-31.0); Mean Corpuscular Volume 96.2 fL (78.0-98.0); Mean Platelet Volume 8.5 fL (7.4-10.4); Platelet Count 223 thou/uL (130-400); RBC Distribution Width 13.5 % (11.5-14.5); White Blood Cell (WBC) Count 11.6 thou/uL (4.8-10.8)
[2019-12-23] MEDS: Morphine 2 MG/ML VIAL SLOW IVP PRN ×3 (05:10→13:35)
[2019-12-23 05:17] LABS: ALT (SGPT) 14 U/L (8-55); AST (SGOT) 17 U/L (5-34); Albumin 3.9 g/dL (3.5-5.0); Alkaline Phosphatase 57 U/L (40-110); Anion Gap 10 mmol/L (10-20); BUN (Urea Nitrogen) 9 mg/dL (7.0-18.7); Bilirubin, Total 0.3 mg/dL (0.2-1.2); Calc. Creatinine Clearance 111 mL/min (70-130); Calcium 8.7 mg/dL (7.8-10.44); Carbon Dioxide 29 mmol/L (22-29); Chloride 109 mmol/L (98-107); Estimated GFR-MDRD Greater than 90; Globulin 2.8 g/dL (2.4-3.5); Glucose 73 mg/dL (70-105); Potassium 3.5 mmol/L (3.5-5.1); Protein, Total 6.7 g/dL (6.0-8.3); Sodium 144 mmol/L (136-145)
[2019-12-23] MEDS: Sodium Chloride 0.9% 1,000 ML IV SCH (09:27)
[2019-12-23] MEDS: Famotidine 20 MG TAB PO SCH (09:27)
--- NOTE | 2019-12-23 09:32 | CON ---
DATE OF CONSULTATION: 12/23/2019 CONSULTING PHYSICIAN: Hospitalist Service. IMPRESSION: The patient has a history of drug abuse and probably overmedicated herself. PLAN: I would suggest she will be referred to a drug rehab program. HISTORY OF PRESENT ILLNESS: Ms. Lowery is a 39-year-old woman who I have seen in the past with complaints of headache. She has been noncompliant as far as following up in the office. Reviewed clinical records before the visit today. She has been seeing Dr. Hammond for unknown reason. She has been refilling hydrocodone for her. She has had prescriptions of Klonopin in the past. The pharmacy is relayed to me that she was receiving Soma from another provider while requesting muscle relaxers from my office as well. She came in acting lethargic. She is now awake and alert. Her blood pressure is bit elevated at 150/100, pulse is 97. She denies feeling like she is going into withdrawals. PAST MEDICAL HISTORY: Chronic complaints of pain. SOCIAL HISTORY: Reportedly, her mother is having to take care of her children because she is incompetent to do so. ALLERGIES: MULTIPLE PER CHART. FAMILY HISTORY: Noncontributory. REVIEW OF SYSTEMS: Otherwise negative. PHYSICAL EXAMINATION: GENERAL: She is awake, alert, and speaking appropriately. She has nothing focal on exam. No abnormal movements were seen. SUMMARY: I do not see any acute neurologic issues. Job ID: [id number]
--- NOTE | 2019-12-23 10:13 | MRI ---
MRI Brain WO Con History: Altered metal status Comparison: CT brain prior day Findings: On the diffusion weighted imaging sequence there are no abnormal foci of diffusion restrict ion. This is confirmed on the ADC map. No midline shift. No mass effect. No abnormal foci of hemorrhage on the susceptibility weighted seque nce. Cerebral tonsils are normal. Marrow signal of the clivus is maintained. Corpus callosum is normal. No significant microangiopathic changes. Sulcation is normal. No edema. Impression: No acute infarct or hemorrhage.
[2019-12-23 15:58] VITALS: BP 156/98; TEMP 98.5
--- NOTE | 2019-12-23 16:50 | PDOC.HOSPP ---
- Subjective Encounter Date: 12/23/19 Encounter Time: 16:48 Subjective: Ms. Loweyr was seen today in follow-up of altered mental status. She is back to her baseline. She does not have any complaints. - Objective Vital Signs & Weight: Vital Signs (12 hours) Temp Pulse Pulse Resp BP BP BP 12/23/19 15:56 98.5 F 83 16 12/23/19 11:37 144/89 H 12/23/19 11:16 98.0 F 92 18 12/23/19 08:52 86 138/92 H 150/102 H 12/23/19 07:39 98.3 F 99 19 BP BP Pulse Ox 12/23/19 15:56 156/98 H 100 12/23/19 11:37 139/89 142/83 H 12/23/19 11:16 130/91 H 100 12/23/19 08:52 12/23/19 07:39 135/80 99 Weight Weight 145 lb 12.8 oz Result Diagrams: 12/23/19 04:29 12/23/19 04:29 Hospitalist ROS - Medication Medications: Active Medications Generic Name Dose Route Start Last Admin Trade Name Freq PRN Reason Stop Dose Admin Famotidine 20 mg 12/22/19 21:00 12/23/19 09:27 Pepcid PO 20 mg BID LAUREN Administration Sodium Chloride 1,000 mls @ 75 mls/hr 12/22/19 17:30 12/23/19 09:27 Normal Saline 0.9% IV 1,000 mls .[id number] LAUREN Administration Morphine Sulfate 2 mg 12/23/19 05:05 12/23/19 13:35 Morphine SLOW IVP 2 mg Q4H PRN Administration Severe Pain (7-10) Sodium Chloride 10 ml 12/22/19 17:30 12/22/19 22:30 Flush - Normal Saline IVF 10 ml PRN PRN Administration Saline Flush - Exam Eye: PERRL, anicteric sclera Heart: RRR, no murmur, no gallops, no rubs, normal peripheral pulses Respiratory: CTAB, no wheezes, no rales, no ronchi, normal chest expansion Gastrointestinal: soft, non-tender, non-distended, normal bowel sounds, no palpable masses Extremities: no cyanosis, no edema Hosp A/P (1) Toxic metabolic encephalopathy Code(s): G92 - TOXIC ENCEPHALOPATHY Status: Acute (2) 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 This was likely due to over medication * This was discussed with the patient * Stable for discharge home *
--- NOTE | 2019-12-23 18:09 | DIS ---
DATE OF ADMISSION: 12/22/2019 DATE OF DISCHARGE: 12/23/2019 PRIMARY CARE PHYSICIAN: Dr. Delong. DISCHARGE DIAGNOSES: 1. Toxic metabolic encephalopathy. 2. Polypharmacy. 3. Chronic pain. 4. Migraine headaches. 5. Jose-Danlos syndrome. DISCHARGE MEDICATIONS: Include 1. Imitrex 100 mg q.2 as needed. 2. Zofran p.r.n. 3. Restasis eye drops. 4. Losartan 25 mg daily. 5. Gabapentin 300 mg daily. 6. Prozac 10 mg daily. 7. Florinef 0.1 mg daily. 8. Lunesta 3 mg at bedtime. 9. Digoxin 0.125 mg daily. 10. Klonopin 2 mg t.i.d. 11. Butalbital p.r.n. 12. Baclofen 10 mg t.i.d. 13. Atenolol 25 mg twice a day. Please note, she was instructed to stop taking the hydrocodone, acetaminophen as well as tizanidine and Soma. The imaging done during the hospital stay, the patient had an MRI of the brain, which was negative for any acute intracranial abnormalities. CODE STATUS: Full code. ALLERGIES: CYCLOBENZAPRINE, LEVETIRACETAM, METAXALONE, METHOCARBAMOL, COMPAZINE AND TOPAMAX. HOSPITAL COURSE: Ms. Lowery is a pleasant 39-year-old female who was brought to the hospital due to severe lethargy. There was concern that she could have a possible TIA or stroke. For this reason, an MRI of the brain was done which was negative. She has seen Dr. Anderson in the past and he was consulted. He evaluated the patient and felt that her symptoms are likely related to over medication. He states that the patient had been to his office requesting muscle relaxers. She also been getting muscle relaxers from her primary care physician as well as hydrocodone, this in addition to being on Klonopin and baclofen. The patient says that she has not had any hydrocodone in several days is what she tells me. However, I spoke to her at length and discussed that her problem was likely related to over medication. She has been instructed to discontinue hydrocodone. Since she says she has not been taking it, she should be no risk for withdrawal. Also not to take the tizanidine or Soma and only the butalbital for pain. If she needs additional pain medication, then Tylenol is recommended. These instructions will be going home with her. She is to follow up with her primary care physician in 1 to 2 weeks. Job ID: [id number]
== END 2019-12-23 17:30 | disposition home or self-care (01) ==
LOC: ERS 15:13 → 2SE 16:59
PROVIDERS: ADMIT Internal Medicine; ATTEND Internal Medicine
DX: G92 Toxic encephalopathy (principal); G89.29 Other chronic pain; G43.909 Migraine, unspecified, not intractable, without status migrainosus; Q79.60 Ehlers-Danlos syndrome, unspecified; F17.210 Nicotine dependence, cigarettes, uncomplicated; Z79.899 Other long term (current) drug therapy; Z88.8 Allergy status to other drugs, medicaments and biological substances; Z91.19 Patient's noncompliance with other medical treatment and regimen
CPT/HCPCS: 36415; 51701; 62270; 70551; 80053; 80162; 80306; 80307; 81003; 81015; 82140; 82330; 82550; 82803; 82945; 83690; 83735; 84157; 84443; 84484; 84703; 85025; 85610; 85730; 87040; 87077; 87086; 87149; 89051; 93005; 93880; 96361; 96374; 96375; 96376; G0378; J2270

== ENCOUNTER 2019-12-24 14:31 | Inpatient (IN) | payer OTHER ==
[2019-12-24] MEDS ORDERED: Ondansetron PF 4 MG/2 ML Vial ONE (15:27)
[2019-12-24] MEDS ORDERED: Lorazepam 2 MG/ML VIAL ONE (15:27)
[2019-12-24 15:33] LABS: #Lymphocytes 1.3 thou/uL (1.20-3.40); #Monocytes 0.5 thou/uL (0.11-0.59); #Neutrophils 8.7 thou/uL (1.40-6.50); %Basophils 0.2 % (0.0-1.0); %Eosinophils 0.1 % (0.0-10.0); %Lymphocytes 11.9 % (21.0-51.0); %Monocytes 4.6 % (0.0-10.0); %Neutrophils 83.1 % (42.0-75.0); Hemoglobin 12.3 g/dL (12.0-16.0); Mean Corpuscular HGB CONC 33.1 g/dL (32.0-36.0); Mean Corpuscular Hemoglobin 31.6 pg (27.0-31.0); Mean Corpuscular Volume 95.5 fL (78.0-98.0); Mean Platelet Volume 8.6 fL (7.4-10.4); Platelet Count 249 thou/uL (130-400); RBC Distribution Width 13.7 % (11.5-14.5); Red Blood Cell (RBC) Count 3.89 mill/uL (4.20-5.40); White Blood Cell (WBC) Count 10.4 thou/uL (4.8-10.8)
[2019-12-24] MEDS ORDERED: Rocuronium Bromide 10 MG/ML (10ML VIAL) ONE (15:55)
[2019-12-24] MEDS ORDERED: Propofol 1,000 MG/100 ML VIAL IV ONE (15:56)
[2019-12-24 15:57] LABS: BHCG - Serum Negative (NEGATIVE); Pregs Control Background? CLEAR/WHITE (CLR/WHITE); Pregs Control Bar Appear? YES (CONTROL BAR)
[2019-12-24 15:58] LABS: ALT (SGPT) 12 U/L (8-55); AST (SGOT) 19 U/L (5-34); Acetaminophen Less than 6.0 mcg/mL (10.0-30.0); Albumin 4.4 g/dL (3.5-5.0); Alcohol Less than 10 mg/dL (Less than 10); Alkaline Phosphatase 70 U/L (40-110); Anion Gap 16 mmol/L (10-20); BUN (Urea Nitrogen) 9 mg/dL (7.0-18.7); Bilirubin, Total 0.2 mg/dL (0.2-1.2); CK (CPK) 209 U/L (29-168); Calc. Creatinine Clearance 0 mL/min (70-130); Calcium 9.1 mg/dL (7.8-10.44); Carbon Dioxide 21 mmol/L (22-29); Chloride 106 mmol/L (98-107); Estimated GFR-MDRD Greater than 90; Globulin 3.2 g/dL (2.4-3.5); Glucose 119 mg/dL (70-105); Potassium 3.4 mmol/L (3.5-5.1); Protein, Total 7.6 g/dL (6.0-8.3); Salicylate Less than 8.0 mg/dL (15.0-30.0); Sodium 140 mmol/L (136-145)
--- NOTE | 2019-12-24 16:27 | RAD ---
Chest one view HISTORY: Intubation. COMPARISON: 12/22/2019. FINDINGS: Cardiac silhouette and pulmonary vasculature are unremarkable. Mediastinum is midline. Tip of an endotracheal catheter overlies the thoracic inlet. Nasogastric tube descends to the abdomen, beyond the inferior margin of the image. No lobar consolidation or evidence of pneumothorax. IMPRESSION : Endotracheal catheter is in good radiographic position.
[2019-12-24 16:42] LABS: Bacteria/HPF None Seen HPF (None Seen); Bilirubin Negative (Negative); Blood, Urine 1+ (Negative); Clarity Turbid (Clear); Glucose, Urine (Dipstick) Normal (Negative); Ketone, Urine 150 mg/dL (Negative); Leukocyte Negative Leu/uL (Negative); Nitrite Negative (Negative); Protein, Urine (Dipstick) 50 mg/dL (Neg-Trace); Specific Gravity, Urine 1.028 (1.002-1.036); Squamous Epithelial None Seen HPF (0-3); Urobilinogen Normal mg/dL (Less than 2); pH, Urine 5.5 (5.0-9.0)
[2019-12-24 16:44] LABS: Actual Bicarbonate (HCO3a) 20.9 mEq/L (22-28); Base Excess (BEa) -2.5 mEq/L (-2.0 to +3.0); CO2 Tension 31.5 mmHg (35.0-45.0); Calcium, Ionized (arterial) 1.12 mmol/L (1.12-1.30); Carboxyhemoglobin (COHb) 0.1 gm% (0.0-3.0); Hemoglobin (Hb) 11.8 g/dL (12.0-16.0); O2 Tension (PaO2), arterial 121.7 mmHg (80.0-100.0); pH, Arterial 7.44 (7.35-7.45)
[2019-12-24 16:45] LABS: Puncture Site RRA
[2019-12-24 16:46] LABS: ALV-art Gradient 38.565 (0-20)
[2019-12-24 16:52] LABS: Amphetamine Not Detected (NotDetected); Benzodiazepine Screen Detected (NotDetected); Cocaine Metabolite Screen Not Detected (NotDetected); Medtox Reader # READER 4; Methamphetamine Not Detected (NotDetected); Opiate Screen Detected (NotDetected); Phencyclidine (PCP) Not Detected (NotDetected); THC/Cannabinoid Screen Not Detected (NotDetected)
[2019-12-24 16:53] LABS: Barbiturates Screen Detected (NotDetected); Medtox Control Line Valid? VALID (VALID); Methadone Not Detected (NotDetected); Oxycodone Screen Not Detected (NotDetected); Tricyclic Screen Detected (NotDetected)
[2019-12-24 16:57] LABS: HBSAg Index 0.18 S/CO (0-0.99); HIV (1/2) Antibody/Antigen Non-Reactive (NonReactive); HIV 1/2 INDEX 0.61 S/CO (<1.00); Hep B Surf Ag Non-Reactive S/CO (NonReactive); Hep C IgG Ab Non-Reactive (NonReactive); Hep C Index 0.15 S/CO (0-0.79)
[2019-12-24] MEDS ORDERED: Ventilator Sedation Protocol 1 EACH FS ONE (23:10)
[2019-12-24] MEDS ORDERED: DISCONTINUE PREVIOUS NARCOTIC PAIN MEDICATIONS AND BENZODIAZEPINES FS SCH (23:19)
[2019-12-24] MEDS ORDERED: Morphine 2 MG/ML VIAL SLOW IVP PRN (23:19)
[2019-12-24] MEDS ORDERED: fentaNYL Citrate/PF 2,000 MCG in Sodium Chloride 0.9% 60 ML IV SCH (23:19)
[2019-12-24] MEDS ORDERED: Propofol BOLUS 1,000 MG/100 ML VIAL IV PRN (23:19)
[2019-12-24] MEDS ORDERED: Fentanyl BOLUS 250 ML IVPB PRN (23:19)
[2019-12-24] MEDS ORDERED: Potassium Chloride 20 MEQ in Premix Bag 1 BAG IVPB SCH (23:45)
[2019-12-24] MEDS: Sodium Chloride 0.9% 1,000 ML IV SCH (23:48)
[2019-12-24] MEDS: Propofol 1,000 MG/100 ML VIAL IV PRN (23:53)
[2019-12-25] MEDS: Lorazepam 2 MG/ML VIAL SLOW IVP PRN ×2 (00:18→10:02)
[2019-12-25] MEDS: Metoprolol Tartrate 5 MG/5 ML VIAL IVP PRN ×2 (01:49→22:09)
--- NOTE | 2019-12-25 03:44 | HP ---
REASON FOR ADMISSION: Drug overdose. HISTORY OF PRESENT ILLNESS: This is a 39-year-old female patient, who took 27 tablets of 10 mg of baclofen. Her parents found her at home with a bottle that was recently refilled. The bottle was empty and they brought her to the ER. She was found to be nonverbal. She appeared to be having visual hallucination. She was responding to internal stimuli. She was found tachycardic and her skin was dry, Poison Control was contacted, they recommend charcoal. The patient was subsequently intubated for airway protection, propofol was started. She is currently in the intensive care unit. She does follow commands. She is not fully sedated. She remains tachycardic, but appears to be comfortable, in no acute distress. I did review her chart and the patient was recently admitted to our hospital just a couple of days ago with a toxic metabolic encephalopathy secondary to polypharmacy. Initially, she presented with severe lethargy and there was a concern that she had a TIA or stroke, but her MRI was negative for a stroke. It was documented that she has been in the doctor's office requesting muscle relaxers as well as hydrocodone. There was adjustment in her medication and she was sent home. PAST MEDICAL HISTORY: 1. Jose-Danlos syndrome. 2. SVT. 3. Ectodermal dysplasia. 4. Migraines. SOCIAL HISTORY: She continues to smoke. ALLERGIES: TO KEPPRA, METAXALONE, METHOCARBAMOL, COMPAZINE, CYCLOBENZAPRINE, AND TOPAMAX. FAMILY HISTORY: Unable to obtain. She is intubated. REVIEW OF SYSTEMS: Unable to obtain. She is intubated. PHYSICAL EXAMINATION: GENERAL: She is intubated, but appears to be awake, no acute distress. VITAL SIGNS: Her blood pressure is 144/90, heart rate of 130, temperature is 99.9, and saturating 100% on 28% FiO2. HEENT: Head is nontraumatic and normocephalic. Pupils equal and reactive. Extraocular motions are intact. Nonicteric sclerae. Well injected conjunctivae. Oral mucosa normal. Nasal mucosa normal. NECK: Supple. No adenopathy. No murmur. Thyroid is not palpable. Trachea is midline. No supraclavicular lymphadenopathy. HEART: S1 and S2. Regular. No murmurs. No gallops. No friction rubs. No displacement of PMI. LUNGS: Clear to auscultation bilaterally. No wheezes. No rhonchi. No crackles. Bowel sounds are positive. ABDOMEN: Nontender abdomen. No visceromegaly. EXTREMITIES: No lower extremity edema. No cyanosis. NEUROLOGICAL: Unable to fully assess. She is moving all four extremities as per the nurse. LABORATORY DATA: Blood work shows a WBC of 10.4, hemoglobin of 12.3, platelets of 249, and neutrophil count 83.1%. INR 1.1. ABG shows a pH of 7.44 and pCO2 of 31.5. EKG shows sinus tachycardia. Chest x-ray shows no pneumonia, no pneumothorax. ET tube in good radiographic position. ASSESSMENT AND PLAN: This is a 39-year-old female patient, who has overdosed on baclofen, presents with change in mental status. The patient was recently here with metabolic encephalopathy secondary to polypharmacy, Poison Control did suggest administration of charcoal. The patient was intubated for airway protection. She did receive charcoal. She does have an NG tube now connected to suction. She is tachycardic. She has a history of supraventricular tachycardia. Neuro. The patient is intubated and sedated. This will be adjusted as per her clinical progression. We will follow the ICU sedation protocol. Cardiac. The patient is tachycardic. We will start her on IV Lopressor on as needed basis to get her heart rate better controlled and she will be on IV fluids. We will provide her with Tylenol to keep her temperature within normal limits. Renal system, electrolytes. The patient has low potassium. We will follow her electrolytes, replace it when necessary. For deep venous thrombosis prophylaxis, she will be on Lovenox and sequential compression devices. The patient did have a slight increase in her temperature, but still not feverish. We will continue monitoring her from that standpoint. One hour of critical care time was spent to manage this patient. Job ID: [id number]
[2019-12-25 03:46] LABS: #Lymphocytes 1.9 thou/uL (1.20-3.40); #Neutrophils 9.5 thou/uL (1.40-6.50); %Basophils 0.3 % (0.0-1.0); %Eosinophils 0.3 % (0.0-10.0); %Lymphocytes 15.3 % (21.0-51.0); %Monocytes 8.2 % (0.0-10.0); Hemoglobin 10.3 g/dL (12.0-16.0); Mean Corpuscular HGB CONC 32.9 g/dL (32.0-36.0); Mean Corpuscular Hemoglobin 31.4 pg (27.0-31.0); Mean Corpuscular Volume 95.4 fL (78.0-98.0); Mean Platelet Volume 9.5 fL (7.4-10.4); Platelet Count 230 thou/uL (130-400); RBC Distribution Width 13.8 % (11.5-14.5); Red Blood Cell (RBC) Count 3.28 mill/uL (4.20-5.40); White Blood Cell (WBC) Count 12.4 thou/uL (4.8-10.8)
[2019-12-25 04:09] LABS: Anion Gap 14 mmol/L (10-20); BUN (Urea Nitrogen) 9 mg/dL (7.0-18.7); Calc. Creatinine Clearance 124 mL/min (70-130); Calcium 8.2 mg/dL (7.8-10.44); Carbon Dioxide 21 mmol/L (22-29); Chloride 110 mmol/L (98-107); Estimated GFR-MDRD Greater than 90; Glucose 106 mg/dL (70-105); Potassium 3.6 mmol/L (3.5-5.1); Sodium 141 mmol/L (136-145)
[2019-12-25 04:22] VITALS: BMI 228065.5
[2019-12-25] MEDS: Propofol 1,000 MG/100 ML VIAL IV PRN (07:03)
[2019-12-25] MEDS: Enoxaparin Sodium 40 MG/0.4 ML SYRINGE SC SCH (07:53)
[2019-12-25] MEDS: Sodium Chloride 0.9% 1,000 ML IV SCH ×2 (10:43→20:32)
[2019-12-25 14:28] LABS: SARS-CoV-2 MS2 Positive; SARS-CoV-2 N Gene Negative; SARS-CoV-2 S Gene Negative; SARS-CoV-2 by NAA Not Detected (NotDetected); SARS-CoV-2 orf1ab Negative
[2019-12-25] MEDS ORDERED: PROPOFOL 200 MG/20 ML VIAL ONE (15:55)
--- NOTE | 2019-12-25 16:01 | PDOC.HOSPP ---
- Subjective Encounter Date: 12/25/19 Subjective: Patient remains encephalopathic. She is not interactive. Nurse reports that she is been sleeping most of the day since she extubated herself at 10:00 this morning. She will often speak in her sleep but is not interactive and her speech is often nonsensical. - Objective Vital Signs & Weight: Vital Signs (12 hours) Temp Pulse Resp BP Pulse Ox 12/25/19 12:00 98.4 F 98 12/25/19 08:00 99.2 F 12 98 12/25/19 06:43 98 133/80 12/25/19 06:33 12 12/25/19 04:00 99.7 F H 14 Weight Weight 141 lb 5.061 oz Most Recent Monitor Data Heart Rate from ECG 88 NIBP 142/96 NIBP BP-Mean 111 Respiration from ECG 17 SpO2 98 I&O: 12/24/19 12/25/19 12/26/19 06:59 06:59 06:59 Intake Total 805.8 Output Total 880 425 Balance -74.2 -425 Result Diagrams: 12/25/19 03:09 12/25/19 03:09 Hospitalist ROS - Medication Medications: Active Medications Generic Name Dose Route Start Last Admin Trade Name Freq PRN Reason Stop Dose Admin Enoxaparin Sodium 40 mg 12/25/19 09:00 12/25/19 07:53 Lovenox SC 40 mg 0900 LAUREN Administration Sodium Chloride 1,000 mls @ 100 mls/hr 12/24/19 23:15 12/25/19 10:43 Normal Saline 0.9% IV 1,000 mls .Q10H LAUREN Administration Fentanyl Citrate 2,000 mcg/ 100 mls @ 0 mls/hr 12/24/19 23:19 12/25/19 01:17 Sodium Chloride IV 01/23/20 23:19 100 mls INF LAUREN Administration Protocol Per Protocol Dexmedetomidine HCl 400 mcg/ 100 mls @ 0 mls/hr 12/25/19 10:15 12/25/19 10:37 Sodium Chloride IVPB 100 mls INF LAUREN Administration Protocol Titrate Lorazepam 2 mg 12/24/19 23:19 12/25/19 10:02 Ativan SLOW IVP 01/23/20 23:19 2 mg Q1H PRN Administration Breakthrough agitation Metoprolol Tartrate 5 mg 12/24/19 22:59 12/25/19 01:49 Lopressor IVP 5 mg Q6H PRN Administration Hypertension Propofol 1,000 mg 12/24/19 23:19 12/25/19 07:03 Diprivan IV 01/23/20 23:19 1,000 mg INF PRN Administration TO ACHIEVE GOAL RASS Protocol - Exam General Appearance: NAD General - other findings: Patient appears to be sleeping but her eyes are fluttering a bit. Heart: RRR, no murmur, no gallops, no rubs, normal peripheral pulses Heart - other findings: Tachycardia Respiratory: CTAB, no wheezes, no rales, no ronchi, normal chest expansion, no tachypnea, normal percussion Gastrointestinal: soft, non-distended, normal bowel sounds, no palpable masses, no hepatomegaly, no splenomegaly, no bruit Extremities: no cyanosis, no clubbing, no edema Skin: normal turgor Neurological: no new deficit Psychiatric - other findings: Appears to be sleeping but does occasionally speak. Not interactive. 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 Patient is now back. Apparently she took a large number of muscle relaxers. However, the nurse tells me the family now says they found some of the pills that were supposedly missing. Her drug screen is also positive for tricyclics, barbiturates, benzodiazepines and opioids. Patient will need a psych evaluation when she is medically stable. She did receive some charcoal in the emergency department. Presently the course of action is to allow her some time and metabolism with hydration and see if she will improve her encephalopathy. Toxic encephalopathy: As above. Left shoulder pain: Patient's mother reports the patient has been experiencing the left shoulder pain and that is why she is taking so much medications. Suspect that is not entirely accurate. She had a shoulder x-ray on October 14 that was unremarkable.
--- NOTE | 2019-12-25 20:14 | CON ---
DATE OF CONSULTATION: 12/25/2019 SUBJECTIVE: Ms. Lowery is a 39-year-old female, who was intubated for drug overdose. She self-extubated this morning at the time I was doing my consult. She was placed on Precedex drip and calmed down afterwards because of combative behavior. Apparently, she took multiple tablets of baclofen. PAST MEDICAL HISTORY: Remarkable for Jose-Danlos, SVT, history of vascular headaches. SOCIAL HISTORY: She is a smoker. ALLERGIES: SHE REPORTS MULTIPLE DRUG ALLERGIES THAT ARE LISTED IN THE COMPUTER. FAMILY HISTORY: Noncontributory. REVIEW OF SYSTEMS: Noncontributory and unobtainable. PHYSICAL EXAMINATION: VITAL SIGNS: Post extubation, blood pressure is 138/96, heart rate is in 80s. Immediately after she is extubated, her heart rate got up to 180, gradually came back down once she calmed down. HEAD AND NECK: Unremarkable. LUNGS: Clear anteriorly. HEART: Regular rhythm. ABDOMEN: Soft. EXTREMITIES: Without asymmetry. LABORATORY DATA: White count 12.4, hemoglobin 10.3, platelets 230. Electrolytes are normal. Blood gas yesterday afternoon 7.44, CO2 of 31, PO2 of 121. IMPRESSION: Drug overdose, status post mechanical ventilation, status post self-extubation with no stridor or respiratory distress. If she is stable for several hours post extubation, she could be moved to another room with a sitter. The Precedex can gradually be weaned off. If she is a chronic baclofen user, her baclofen at some point in time need to be restarted. This is a 70 min consult with greater than 50% of the time spent on the unit with coordination of care. Job ID: [id number] [facility]
[2019-12-26] MEDS: Lorazepam 2 MG/ML VIAL SLOW IVP PRN (03:52)
[2019-12-26] MEDS ORDERED: Lorazepam 2 MG/ML VIAL SLOW IVP SCH ×3 (04:15→12:00)
[2019-12-26] MEDS: Sodium Chloride 0.9% 1,000 ML IV SCH ×2 (05:52→10:02)
[2019-12-26 09:00] LABS: #Basophils 0.1 thou/uL (0.0-0.2); #Lymphocytes 1.9 thou/uL (1.20-3.40); #Monocytes 0.5 thou/uL (0.11-0.59); #Neutrophils 6.5 thou/uL (1.40-6.50); %Basophils 0.8 % (0.0-1.0); %Eosinophils 0.5 % (0.0-10.0); %Lymphocytes 20.7 % (21.0-51.0); %Monocytes 5.9 % (0.0-10.0); %Neutrophils 72.2 % (42.0-75.0); Hemoglobin 10.7 g/dL (12.0-16.0); Mean Corpuscular HGB CONC 32.6 g/dL (32.0-36.0); Mean Corpuscular Hemoglobin 31.3 pg (27.0-31.0); Mean Corpuscular Volume 96.2 fL (78.0-98.0); Mean Platelet Volume 8.9 fL (7.4-10.4); Platelet Count 212 thou/uL (130-400); RBC Distribution Width 13.1 % (11.5-14.5); Red Blood Cell (RBC) Count 3.41 mill/uL (4.20-5.40)
[2019-12-26 09:05] LABS: Chloride 110 mmol/L (98-107); Potassium 3.3 mmol/L (3.5-5.1); Sodium 140 mmol/L (136-145)
[2019-12-26 09:06] LABS: Calcium 8.2 mg/dL (7.8-10.44); Glucose 66 mg/dL (70-105)
[2019-12-26 09:08] LABS: Anion Gap 15 mmol/L (10-20); Carbon Dioxide 18 mmol/L (22-29)
[2019-12-26 09:10] LABS: Calc. Creatinine Clearance 124 mL/min (70-130); Estimated GFR-MDRD Greater than 90
[2019-12-26 09:11] LABS: BUN (Urea Nitrogen) 11 mg/dL (7.0-18.7)
[2019-12-26] MEDS: Enoxaparin Sodium 40 MG/0.4 ML SYRINGE SC SCH (10:01)
[2019-12-26] MEDS ORDERED: Lorazepam 2 MG/ML VIAL ONE (11:14)
--- NOTE | 2019-12-26 15:20 | PDOC.HOSPP ---
- Subjective Encounter Date: 12/26/19 Subjective: And has been persistently confused and intermittently agitated today. She has been much more awake. She has been interactive although frequently making no sense. Late morning today she became acutely more agitated. She pulled out her IVs. She pulled out her Slade catheter while the balloon was inflated. She was kicking and trying to bite the nurses. Her heart rate was up to 170s. She had initially been given a dose of Ativan with 2 mg which did not seem to have any effect on her at all. She subsequently was given a 3 mg dose at which time she did not become somnolent but did settle down considerably. - Objective Vital Signs & Weight: Vital Signs (12 hours) Temp Pulse Ox 12/26/19 07:20 99 12/26/19 07:18 98.5 F 12/26/19 03:46 98.8 F Weight Weight 141 lb 5.061 oz Most Recent Monitor Data Heart Rate from ECG 113 NIBP 144/114 NIBP BP-Mean 124 Respiration from ECG 18 SpO2 100 I&O: 12/25/19 12/26/19 12/27/19 06:59 06:59 06:59 Intake Total 805.8 2124 Output Total 880 1200 Balance -74.2 924 Result Diagrams: 12/26/19 08:30 12/26/19 08:30 Hospitalist ROS - Medication Medications: Active Medications Generic Name Dose Route Start Last Admin Trade Name Freq PRN Reason Stop Dose Admin Enoxaparin Sodium 40 mg 12/25/19 09:00 12/26/19 10:01 Lovenox SC 40 mg 0900 LAUREN Administration Sodium Chloride 1,000 mls @ 100 mls/hr 12/24/19 23:15 12/26/19 10:02 Normal Saline 0.9% IV 1,000 mls .Q10H LAUREN Administration Dexmedetomidine HCl 400 mcg/ 100 mls @ 0 mls/hr 12/25/19 10:15 12/26/19 03:46 Sodium Chloride IVPB 100 mls INF LAUREN Administration Protocol Titrate Metoprolol Tartrate 5 mg 12/24/19 22:59 12/25/19 22:09 Lopressor IVP 5 mg Q6H PRN Administration Hypertension - Exam General Appearance: NAD, awake alert Heart: RRR, no murmur, no gallops, no rubs, normal peripheral pulses Heart - other findings: Very tachycardic in the midst of her agitation. Respiratory: CTAB, no wheezes, no rales, no ronchi, normal chest expansion, no tachypnea, normal percussion Gastrointestinal: soft, non-tender, non-distended, normal bowel sounds, no palpable masses, no hepatomegaly, no splenomegaly, no bruit Extremities: no cyanosis, no clubbing, no edema Musculoskeletal: normal tone, normal strength, no muscle wasting Psychiatric - other findings: Confused and intermittently agitated. 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 Patient is now back. Apparently she took a large number of muscle relaxers. However, the nurse tells me the family now says they found some of the pills that were supposedly missing. Her drug screen is also positive for tricyclics, barbiturates, benzodiazepines and opioids. Patient will need a psych evaluation when she is medically stable. She did receive some charcoal in the emergency department. Presently the course of action is to allow her some time and metabolism with hydration and see if she will improve her encephalopathy. Toxic encephalopathy: The patient is far more awake and alert today, however she is still generally confused and frequently has episodes of significant agitation. She was on maximum dosing of Precedex. Possible she may be having some withdrawal from the baclofen. Discussed with Dr. Ross. We will put her on some low-dose p.o. baclofen. Acute hypoxic respiratory failure: Patient self extubated yesterday. She seems to have been doing well from a respiratory standpoint since that time. Left shoulder pain: Patient's mother reports the patient has been experiencing the left shoulder pain and that is why she is taking so much medications. Suspect that is not entirely accurate. She had a shoulder x-ray on October 14 that was unremarkable. Hypokalemia: IV repletion.
[2019-12-26] MEDS ORDERED: Haloperidol Lactate 5 MG/ML VIAL SLOW IVP PRN (21:09)
--- NOTE | 2019-12-26 22:59 | PRG ---
DATE OF SERVICE: 12/26/2019 Stephania Lowery became very combative and agitated earlier today, but calmed down with Ativan. She is stable hemodynamically. She is on room air. Her blood pressures for the most part are normal with mild elevation of diastolic. She has had a mild resting tachycardia. Otherwise, she is unchanged. Hospitalists are doing a great job of managing her. One other possibility in addition to Precedex and Ativan might be use of IV Haldol with the Ativan. This might lead to little more control of her agitation and the risk of respiratory depression. I will put a p.r.n. order for this. Job ID: [id number]
[2019-12-27] MEDS: Sodium Chloride 0.9% 1,000 ML IV SCH ×2 (05:29→07:36)
[2019-12-27] MEDS: Metoprolol Tartrate 5 MG/5 ML VIAL IVP PRN ×2 (06:09→16:47)
[2019-12-27] MEDS: Enoxaparin Sodium 40 MG/0.4 ML SYRINGE SC SCH (07:36)
[2019-12-27] MEDS ORDERED: Potassium Chloride 20 MEQ TAB PO SCH (08:00)
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
[2019-12-27] MEDS ORDERED: Digoxin 0.125 MG TAB PO SCH (16:15)
[2019-12-27] MEDS ORDERED: FLUoxetine HCl 10 MG CAP PO SCH (16:15)
[2019-12-27] MEDS: Lorazepam 2 MG/ML VIAL SLOW IVP PRN ×2 (16:47→23:12)
[2019-12-27] MEDS ORDERED: diphenhydrAMINE 50 MG/ML VIAL IVP SCH (20:15)
[2019-12-27] MEDS: clonazePAM 1 MG TAB PO SCH (21:15)
[2019-12-27] MEDS: Atenolol 25 MG TAB PO SCH (21:15)
[2019-12-28 03:42] LABS: Anion Gap 15 mmol/L (10-20); BUN (Urea Nitrogen) 4 mg/dL (7.0-18.7); Calc. Creatinine Clearance 124 mL/min (70-130); Calcium 8.4 mg/dL (7.8-10.44); Carbon Dioxide 21 mmol/L (22-29); Chloride 108 mmol/L (98-107); Estimated GFR-MDRD Greater than 90; Glucose 87 mg/dL (70-105); Sodium 141 mmol/L (136-145)
[2019-12-28 03:56] LABS: Potassium 2.9 mmol/L (3.5-5.1)
[2019-12-28] MEDS ORDERED: Electrolyte Replacement Protoc 1 EACH EACH FS SCH (04:15)
[2019-12-28] MEDS: Potassium Chloride 20 MEQ TAB PO SCH ×2 (04:24→08:46)
[2019-12-28] MEDS: Lorazepam 2 MG/ML VIAL SLOW IVP PRN (06:08)
[2019-12-28] MEDS ORDERED: Acetaminophen 325 MG TAB PO PRN (06:41)
[2019-12-28] MEDS: clonazePAM 1 MG TAB PO SCH ×2 (08:46→13:16)
[2019-12-28] MEDS: Atenolol 25 MG TAB PO SCH (08:46)
[2019-12-28] MEDS: Enoxaparin Sodium 40 MG/0.4 ML SYRINGE SC SCH (08:50)
[2019-12-28] MEDS ORDERED: FLUoxetine HCl 10 MG CAP PO SCH (09:00)
[2019-12-28] MEDS ORDERED: FLUoxetine HCl 20 MG CAP PO SCH (09:00)
[2019-12-28] MEDS ORDERED: Digoxin 0.125 MG TAB PO SCH (09:00)
[2019-12-28 11:09] VITALS: TEMP 99.8
[2019-12-28 13:10] VITALS: BP 140/92
--- NOTE | 2019-12-29 15:46 | DIS ---
DATE OF ADMISSION: 12/24/2019 DATE OF DISCHARGE: 12/28/2019 DISCHARGE DISPOSITION: To home. PRIMARY DISCHARGE DIAGNOSES: Suspected overdose on baclofen; acute encephalopathy secondary to above, resolved; history of supraventricular tachycardia; history of Jose-Danlos syndrome. PROCEDURES DONE DURING HOSPITALIZATION: Chest x-ray done showed no acute infiltrate. H and H 10 and 32, platelet count 212, MCV is 96. BUN and creatinine 4 and 0.6. Serum test is negative. Urine toxicology screen is positive for opiates, barbiturates, tricyclics, and benzodiazepines. Plasma alcohol less than 10. COVID-19 PCR was not detected on 12/24/2019. Hep C antibody nonreactive. HBS antigen nonreactive. HIV 1 and 2 nonreactive. INPATIENT CONSULT: Dr. Ross for Pulmonology. DISCHARGE PLAN: The patient to follow up with her primary care physician in 1 week. DISCHARGE MEDICATIONS: 1. Atenolol 25 mg twice daily. 2. Fioricet p.r.n. for migraine. 3. Digoxin 0.125 mg p.o. daily. 4. Florinef 0.1 mg p.o. daily. 5. Fluoxetine 10 mg p.o. daily. 6. Gabapentin 300 mg p.o. daily. 7. Losartan 25 mg daily. 8. Sumatriptan p.r.n. for migraine. ALLERGIES: TO FLEXERIL, KEPPRA, METOLAZONE, METHOCARBAMOL, TOPAMAX. BRIEF COURSE DURING HOSPITALIZATION: The patient initially got admitted on the 23 of December for suspicion of overdose on baclofen. She had visual hallucination and subsequently was intubated for airway protection. She was also recently hospitalized here for polypharmacy and metabolic encephalopathy. In view of above-mentioned issues, the patient was admitted to critical care unit. 24 hours into hospitalization, the patient self-extubated herself. She also pulled her Slade catheter out. She was agitated for 48 hours after extubation, but then has slowly calmed down. She was on extended Precedex drip, which has been discontinued for the last 36 hours now. The patient had a one-to-one sitter and at the time of discharge is fully oriented. [facility] has come and evaluated her. The patient has denied overdosing on baclofen. [facility] has safety plan and has spoken to her mom as well. Her mother is taking control of all her medications at home. Per [facility] advice, the patient is being discharged home. Please note, I have seen and examined the patient on the day of discharge. Job ID: [id number]
== END 2019-12-28 13:35 | disposition home or self-care (01) | DRG 917 ==
LOC: ERS 14:31 → ERHOLD 17:47 → CCU 20:34 → IMCU/EMU 12-25 19:28
PROVIDERS: ADMIT Internal Medicine; ATTEND Internal Medicine
PROC: 0BH17EZ Insertion of Endotracheal Airway into Trachea, Via Natural or Artificial Opening (ICD-10-PCS; principal; 2019-12-24)
PROC: 5A1935Z Respiratory Ventilation, Less than 24 Consecutive Hours (ICD-10-PCS; 2019-12-24)
DX: T42.8X1A Poisoning by antiparkinsonism drugs and other central muscle-tone depressants, accidental (unintentional), initial encounter (principal); J96.02 Acute respiratory failure with hypercapnia; G92 Toxic encephalopathy; Q79.60 Ehlers-Danlos syndrome, unspecified; Z20.828 Contact with and (suspected) exposure to other viral communicable diseases; R00.0 Tachycardia, unspecified; E87.6 Hypokalemia; M25.512 Pain in left shoulder; R44.1 Visual hallucinations; G43.909 Migraine, unspecified, not intractable, without status migrainosus; F17.200 Nicotine dependence, unspecified, uncomplicated; Z88.8 Allergy status to other drugs, medicaments and biological substances
CPT/HCPCS: 36415; 71045; 80048; 80053; 80306; 80307; 81003; 81015; 82550; 82805; 84443; 84484; 84703; 85025; 86803; 87340; 87389; 87635; 93005; 94003; J1200; J1650; J2060; J2405; J2704; J3010; J3480; J3490; U0003

== ENCOUNTER 2020-04-23 06:44 | Emergency (ER) | payer OTHER ==
[2020-04-23 07:46] LABS: Bilirubin Negative (Negative); Blood, Urine Negative (Negative); Clarity Clear (Clear); Glucose, Urine (Dipstick) Normal (Negative); Ketone, Urine Negative (Negative); Leukocyte Negative Leu/uL (Negative); Nitrite Negative (Negative); Protein, Urine (Dipstick) Negative (Neg-Trace); Specific Gravity, Urine 1.013 (1.002-1.036); Urobilinogen Normal mg/dL (Less than 2)
[2020-04-23] MEDS ORDERED: Ketorolac Tromethamine 30 MG/ML VIAL ONE (07:46)
[2020-04-23] MEDS ORDERED: Acetaminophen 500 MG TAB ONE (07:46)
[2020-04-23 07:58] LABS: #Basophils 0.1 thou/uL (0.0-0.2); #Eosinphils 0.2 thou/uL (0.0-0.7); #Lymphocytes 1.9 thou/uL (1.20-3.40); #Monocytes 0.6 thou/uL (0.11-0.59); #Neutrophils 8.9 thou/uL (1.40-6.50); %Basophils 0.7 % (0.0-1.0); %Eosinophils 1.3 % (0.0-10.0); %Lymphocytes 16.2 % (21.0-51.0); %Monocytes 4.9 % (0.0-10.0); %Neutrophils 76.9 % (42.0-75.0); Hemoglobin 12.1 g/dL (12.0-16.0); Mean Corpuscular HGB CONC 33.6 g/dL (32.0-36.0); Mean Corpuscular Hemoglobin 31.2 pg (27.0-31.0); Mean Platelet Volume 8.6 fL (7.4-10.4); Platelet Count 295 thou/uL (130-400); RBC Distribution Width 14.4 % (11.5-14.5); Red Blood Cell (RBC) Count 3.88 mill/uL (4.20-5.40); White Blood Cell (WBC) Count 11.6 thou/uL (4.8-10.8)
[2020-04-23 08:04] LABS: Amphetamine Not Detected (NotDetected); Barbiturates Screen Detected (NotDetected); Benzodiazepine Screen Detected (NotDetected); Cocaine Metabolite Screen Not Detected (NotDetected); Medtox Reader # READER 4; Methadone Not Detected (NotDetected); Methamphetamine Not Detected (NotDetected); Opiate Screen Not Detected (NotDetected); Oxycodone Screen Not Detected (NotDetected); Phencyclidine (PCP) Not Detected (NotDetected); THC/Cannabinoid Screen Not Detected (NotDetected); Tricyclic Screen Detected (NotDetected)
[2020-04-23 08:05] LABS: BHCG - Serum Negative (NEGATIVE); Pregs Control Background? CLEAR/WHITE (CLR/WHITE); Pregs Control Bar Appear? YES (CONTROL BAR)
[2020-04-23 08:05] LABS: Medtox Control Line Valid? VALID (VALID)
[2020-04-23 08:26] LABS: ALT (SGPT) 10 U/L (8-55); AST (SGOT) 18 U/L (5-34); Acetaminophen Less than 6.0 mcg/mL (10.0-30.0); Albumin 3.8 g/dL (3.5-5.0); Alcohol Less than 10 mg/dL (Less than 10); Alkaline Phosphatase 71 U/L (40-110); Anion Gap 13 mmol/L (10-20); BUN (Urea Nitrogen) 7 mg/dL (7.0-18.7); Bilirubin, Total 0.2 mg/dL (0.2-1.2); Calc. Creatinine Clearance 0 mL/min (70-130); Carbon Dioxide 29 mmol/L (22-29); Chloride 106 mmol/L (98-107); Estimated GFR-MDRD 64; Globulin 3.2 g/dL (2.4-3.5); Glucose 86 mg/dL (70-105); Potassium 3.8 mmol/L (3.5-5.1); Salicylate Less than 8.0 mg/dL (15.0-30.0); Sodium 144 mmol/L (136-145)
[2020-04-23] MEDS ORDERED: Morphine ER 15 MG TAB PO SCH (09:00)
--- NOTE | 2020-04-26 15:19 | EKG ---
Test Reason : Blood Pressure : / mmHG Vent. Rate : 102 BPM Atrial Rate : 102 BPM P-R Int : 118 ms QRS Dur : 074 ms QT Int : 346 ms P-R-T Axes : 071 019 040 degrees QTc Int : 450 ms Sinus tachycardia Nonspecific ST abnormality Abnormal ECG Confirmed by MAICO LANGSTON ([id number]), material expeditor DEEPA HAZEL ([id number]) on 04/26/2020 3:19:09 PM Referred By: Confirmed By:MAICO Jurado
== END 2020-04-23 10:10 | disposition home or self-care (01) ==
LOC: ERS 06:44
DX: M25.571 Pain in right ankle and joints of right foot (principal); M25.511 Pain in right shoulder; M25.512 Pain in left shoulder; F41.9 Anxiety disorder, unspecified; F31.9 Bipolar disorder, unspecified; F43.10 Post-traumatic stress disorder, unspecified; F17.210 Nicotine dependence, cigarettes, uncomplicated; Z79.899 Other long term (current) drug therapy
CPT/HCPCS: 80053; 80306; 80307; 81003; 84703; 85025; 93005; 96372; J1885

== ENCOUNTER 2020-05-09 14:25 | Outpatient (CLI) | payer OTHER ==
--- NOTE | 2020-05-09 15:54 | MRI ---
MR OF THE LEFT SHOULDER WITHOUT CONTRAST: 05/09/20 INDICATION: History of impingement syndrome of the left shoulder. COMPARISON: Let shoulder radiograph from [facility] dated October 15, 2019. FINDINGS: There is mild supraspinatus tendinosis. No full thickness tear is demonstrated. No large amount of fl uid is seen within the subacromial subdeltoid bursa. The biceps anchor complex and superior glenoid l abrum appear intact. Biceps anchor is located. The anterior inferior glenohumeral labral ligamentous complex and glenoid articular surface appears w ithin normal limits. No muscular atrophy is evident. There is a type II acromion. There is mild AC valdez int hypertrophy that does cause mild encroachment on the subjacent supraspinatus musculotendinous juanjose ction best seen on image 14 of series 6. No os acromiale is evident. IMPRESSION: 1. Mild supraspinatus tendinosis. 2. Mild AC joint osteoarthrosis with hypertrophy causing mild encroachment of the subjacent supr aspinatus. 3. No large amount of fluid is seen within the subacromial subdeltoid bursa to suggest underlyin g bursitis. POS: [facility]
== END 2020-05-09 14:26 | disposition home or self-care (01) ==
LOC: BICMRI 14:25
PROVIDERS: ATTEND Orthopaedic Surgery
DX: M75.42 Impingement syndrome of left shoulder (principal); M19.012 Primary osteoarthritis, left shoulder; M25.812 Other specified joint disorders, left shoulder

== ENCOUNTER 2020-05-21 19:11 | Emergency (ER) | payer OTHER ==
[~2020-05-21 19:11] MED LIST: Iopamidol-370 76% 500 ML 1 ML ONE
[2020-05-21 20:05] LABS: #Basophils 0.1 thou/uL (0.0-0.2); #Eosinphils 0.3 thou/uL (0.0-0.7); #Lymphocytes 2.1 thou/uL (1.20-3.40); #Monocytes 0.7 thou/uL (0.11-0.59); #Neutrophils 6.7 thou/uL (1.40-6.50); %Basophils 1.1 % (0.0-1.0); %Eosinophils 2.6 % (0.0-10.0); %Monocytes 6.9 % (0.0-10.0); %Neutrophils 68.3 % (42.0-75.0); Hemoglobin 11.2 g/dL (12.0-16.0); Mean Corpuscular HGB CONC 32.7 g/dL (32.0-36.0); Mean Corpuscular Hemoglobin 31.5 pg (27.0-31.0); Mean Corpuscular Volume 96.4 fL (78.0-98.0); Mean Platelet Volume 8.7 fL (7.4-10.4); Platelet Count 352 thou/uL (130-400); RBC Distribution Width 13.8 % (11.5-14.5); Red Blood Cell (RBC) Count 3.56 mill/uL (4.20-5.40); White Blood Cell (WBC) Count 9.8 thou/uL (4.8-10.8)
[2020-05-21 20:30] LABS: ALT (SGPT) 7 U/L (8-55); AST (SGOT) 13 U/L (5-34); Albumin 4.3 g/dL (3.5-5.0); Alkaline Phosphatase 76 U/L (40-110); Anion Gap 13 mmol/L (10-20); BUN (Urea Nitrogen) 9 mg/dL (7.0-18.7); Bilirubin, Total 0.2 mg/dL (0.2-1.2); Calc. Creatinine Clearance 0 mL/min (70-130); Calcium 8.8 mg/dL (7.8-10.44); Carbon Dioxide 28 mmol/L (22-29); Chloride 106 mmol/L (98-107); Globulin 2.9 g/dL (2.4-3.5); Glucose 75 mg/dL (70-105); Lipase 36 U/L (8-78); Potassium 4.1 mmol/L (3.5-5.1); Protein, Total 7.2 g/dL (6.0-8.3); Sodium 143 mmol/L (136-145)
[2020-05-21] MEDS ORDERED: Morphine 4 MG/ML VIAL ONE (20:30)
[2020-05-21] MEDS ORDERED: Ondansetron PF 4 MG/2 ML Vial ONE (20:30)
[2020-05-21 21:17] LABS: BHCG - Serum Negative (NEGATIVE); Pregs Control Background? CLEAR/WHITE (CLR/WHITE); Pregs Control Bar Appear? YES (CONTROL BAR)
--- NOTE | 2020-05-21 22:09 | CT ---
CT ANGIOGRAM CHEST AND ABDOMEN WITH IV CONTRAST AND 3D MIP RECONSTRUCTIONS: 05/21/20 PROVIDED CLINICAL HISTORY: Chest pain, history of Jose-Danlos syndrome. FINDINGS: Comparison 12/22/19. The heart, pericardium and great vessels demonstrate a normal CT angiographic appearance. There is no evidence for dissection or aneurysm. The central pulmonary arterial system is without apparent filli ng defect. The lungs are free of significant opacity. There is no pleural fluid or pneumothorax appar ent. The airway appears patent and of normal caliber. The solid abdominal organs are suboptimally evaluated in the arterial phase of IV contrast, but demon strates no abnormality. There is conspicuous colonic fecal retention. There is no evidence for bowel obstruction, free fluid or free air within the visualized portions of the abdomen. The abdominal aorta is nonaneurysmal. There is no evidence for dissection. The mesenteric and renal v essels appear normal. Minimal atherosclerotic mural plaque is seen involving the distal abdominal aor ta. The osseous structures demonstrate no concerning lytic or blastic lesions. IMPRESSION: 1. No evidence for aortic dissection. 2. Conspicuous colonic fecal retention suggesting constipation. POS: [facility]
--- NOTE | 2020-05-21 22:10 | RAD ---
FRONTAL RADIOGRAPH CHEST: 05/21/20 COMPARISON: 12/24/19 HISTORY: Chest pain. FINDINGS: Lungs appear clear. Heart and mediastinal contours are unremarkable. IMPRESSION: No acute findings. POS: [facility]
[2020-05-21] MEDS ORDERED: Ketorolac Tromethamine 30 MG/ML VIAL ONE (22:21)
== END 2020-05-21 23:36 | disposition home or self-care (01) ==
LOC: ERS 19:11
DX: R07.89 Other chest pain (principal); I10 Essential (primary) hypertension; F17.210 Nicotine dependence, cigarettes, uncomplicated; Z79.899 Other long term (current) drug therapy
CPT/HCPCS: 36415; 71045; 71275; 74174; 80053; 83690; 84484; 84703; 85025; 93005; 96374; 96375; J1885; J2270; J2405; Q9967

== ENCOUNTER 2020-06-12 14:03 | Emergency (ER) | payer OTHER ==
[2020-06-12 14:38] LABS: #Basophils 0.1 thou/uL (0.0-0.2); #Eosinphils 0.3 thou/uL (0.0-0.7); #Lymphocytes 3.5 thou/uL (1.20-3.40); #Monocytes 0.6 thou/uL (0.11-0.59); #Neutrophils 5.7 thou/uL (1.40-6.50); %Basophils 1.1 % (0.0-1.0); %Eosinophils 2.8 % (0.0-10.0); %Lymphocytes 34.2 % (21.0-51.0); %Monocytes 5.8 % (0.0-10.0); %Neutrophils 56.1 % (42.0-75.0); Hemoglobin 12.6 g/dL (12.0-16.0); Mean Corpuscular HGB CONC 32.9 g/dL (32.0-36.0); Mean Corpuscular Hemoglobin 31.5 pg (27.0-31.0); Mean Corpuscular Volume 95.7 fL (78.0-98.0); Mean Platelet Volume 8.6 fL (7.4-10.4); Platelet Count 411 thou/uL (130-400); RBC Distribution Width 14.1 % (11.5-14.5); Red Blood Cell (RBC) Count 4.01 mill/uL (4.20-5.40); White Blood Cell (WBC) Count 10.1 thou/uL (4.8-10.8)
--- NOTE | 2020-06-12 14:50 | RAD ---
Exam: Chest one view HISTORY:Chest pain Comparison: 05/21/2020 FINDINGS: Cardiac silhouette: Normal. Loop recorder is noted. Aorta: Unremarkable Pulmonary vessels: Normal Costophrenic angles: Clear LUNGS: No masses or consolidation. Pneumothorax: None Osseous abnormalities: None IMPRESSION: No acute cardiopulmonary process.
[2020-06-12 15:07] LABS: ALT (SGPT) 12 U/L (8-55); AST (SGOT) 16 U/L (5-34); Albumin 4.1 g/dL (3.5-5.0); Alkaline Phosphatase 77 U/L (40-110); Anion Gap 16 mmol/L (10-20); BUN (Urea Nitrogen) 16 mg/dL (7.0-18.7); Bilirubin, Total Less than 0.2 mg/dL (0.2-1.2); Calc. Creatinine Clearance 0 mL/min (70-130); Calcium 8.7 mg/dL (7.8-10.44); Carbon Dioxide 25 mmol/L (22-29); Chloride 102 mmol/L (98-107); Globulin 3.5 g/dL (2.4-3.5); Glucose 81 mg/dL (70-105); Lipase 166 U/L (8-78); Potassium 4.1 mmol/L (3.5-5.1); Protein, Total 7.6 g/dL (6.0-8.3); Sodium 139 mmol/L (136-145)
[2020-06-12] MEDS ORDERED: Ondansetron PF 4 MG/2 ML Vial ONE (15:18)
[2020-06-12] MEDS ORDERED: Acetaminophen 500 MG TAB ONE (16:01)
[2020-06-12] MEDS ORDERED: Morphine 4 MG/ML VIAL ONE (16:52)
--- NOTE | 2020-06-28 20:37 | EKG ---
Test Reason : Blood Pressure : / mmHG Vent. Rate : 070 BPM Atrial Rate : 070 BPM P-R Int : 120 ms QRS Dur : 070 ms QT Int : 382 ms P-R-T Axes : 072 010 051 degrees QTc Int : 412 ms Normal sinus rhythm Normal ECG Confirmed by ABDI YUSUF, MIRELLA ([id number]), editor at large DEEPA HAZEL ([id number]) on 06/28/2020 8:37:08 PM Referred By: Confirmed By:MIRELLA PATTON MD
== END 2020-06-12 17:59 | disposition home or self-care (01) ==
LOC: ERS 14:03
DX: K85.90 Acute pancreatitis without necrosis or infection, unspecified (principal); I10 Essential (primary) hypertension; G43.909 Migraine, unspecified, not intractable, without status migrainosus; F17.210 Nicotine dependence, cigarettes, uncomplicated; Z79.899 Other long term (current) drug therapy
CPT/HCPCS: 71045; 80053; 83690; 84484; 85025; 93005; 96374; 96375; J2270; J2405

== ENCOUNTER 2020-06-20 04:52 | Emergency (ER) | payer OTHER ==
[2020-06-20 05:52] LABS: #Basophils 0.1 thou/uL (0.0-0.2); #Eosinphils 0.3 thou/uL (0.0-0.7); #Lymphocytes 2.9 thou/uL (1.20-3.40); #Monocytes 0.6 thou/uL (0.11-0.59); #Neutrophils 3.5 thou/uL (1.40-6.50); %Basophils 1.9 % (0.0-1.0); %Eosinophils 3.5 % (0.0-10.0); %Lymphocytes 39.3 % (21.0-51.0); %Monocytes 7.6 % (0.0-10.0); %Neutrophils 47.8 % (42.0-75.0); Hemoglobin 11.8 g/dL (12.0-16.0); Mean Corpuscular HGB CONC 32.2 g/dL (32.0-36.0); Mean Corpuscular Hemoglobin 30.9 pg (27.0-31.0); Mean Platelet Volume 8.3 fL (7.4-10.4); Platelet Count 306 thou/uL (130-400); RBC Distribution Width 14.1 % (11.5-14.5); Red Blood Cell (RBC) Count 3.82 mill/uL (4.20-5.40); White Blood Cell (WBC) Count 7.2 thou/uL (4.8-10.8)
[2020-06-20] MEDS ORDERED: Lidocaine 2% PF 100 mg/5 ml Syringe ONE (05:58)
[2020-06-20] MEDS ORDERED: Ondansetron PF 4 MG/2 ML Vial ONE (05:58)
[2020-06-20] MEDS ORDERED: Mag-Al 1200 mg/1200 mg/30 ML UDCUP ONE (05:58)
[2020-06-20] MEDS ORDERED: Lidocaine Viscous Sol 2% 15 ml UD Cup ONE (05:59)
[2020-06-20 06:11] LABS: ALT (SGPT) 9 U/L (8-55); AST (SGOT) 18 U/L (5-34); Albumin 3.9 g/dL (3.5-5.0); Alkaline Phosphatase 70 U/L (40-110); Anion Gap 12 mmol/L (10-20); BUN (Urea Nitrogen) 13 mg/dL (7.0-18.7); Bilirubin, Total 0.3 mg/dL (0.2-1.2); Calc. Creatinine Clearance 0 mL/min (70-130); Calcium 8.9 mg/dL (7.8-10.44); Carbon Dioxide 29 mmol/L (22-29); Chloride 102 mmol/L (98-107); Globulin 3.1 g/dL (2.4-3.5); Glucose 77 mg/dL (70-105); Lipase 30 U/L (8-78); Potassium 4.4 mmol/L (3.5-5.1); Sodium 139 mmol/L (136-145)
== END 2020-06-20 07:40 | disposition home or self-care (01) ==
LOC: ERS 04:52
DX: R11.2 Nausea with vomiting, unspecified (principal); R10.13 Epigastric pain; I10 Essential (primary) hypertension; G43.909 Migraine, unspecified, not intractable, without status migrainosus; F17.210 Nicotine dependence, cigarettes, uncomplicated; Z79.899 Other long term (current) drug therapy
CPT/HCPCS: 36415; 80053; 83690; 85025; 96374; J2001; J2405

== ENCOUNTER 2020-06-21 14:07 | Emergency (ER) | payer OTHER ==
[2020-06-21 14:34] LABS: #Basophils 0.1 thou/uL (0.0-0.2); #Eosinphils 0.2 thou/uL (0.0-0.7); #Lymphocytes 3.3 thou/uL (1.20-3.40); #Monocytes 0.4 thou/uL (0.11-0.59); #Neutrophils 5.1 thou/uL (1.40-6.50); %Basophils 1.3 % (0.0-1.0); %Eosinophils 2.6 % (0.0-10.0); %Lymphocytes 35.3 % (21.0-51.0); %Monocytes 4.8 % (0.0-10.0); Hemoglobin 12.1 g/dL (12.0-16.0); Mean Corpuscular HGB CONC 33.6 g/dL (32.0-36.0); Mean Corpuscular Hemoglobin 32.8 pg (27.0-31.0); Mean Corpuscular Volume 97.4 fL (78.0-98.0); Mean Platelet Volume 8.5 fL (7.4-10.4); Platelet Count 284 thou/uL (130-400); RBC Distribution Width 14.2 % (11.5-14.5); Red Blood Cell (RBC) Count 3.68 mill/uL (4.20-5.40); White Blood Cell (WBC) Count 9.2 thou/uL (4.8-10.8)
[2020-06-21 15:02] LABS: Alcohol Less than 10 mg/dL (Less than 10); Salicylate Less than 8.0 mg/dL (15.0-30.0)
[2020-06-21 15:08] LABS: ALT (SGPT) 10 U/L (8-55); AST (SGOT) 19 U/L (5-34); Albumin 4.2 g/dL (3.5-5.0); Alkaline Phosphatase 74 U/L (40-110); Anion Gap 13 mmol/L (10-20); BUN (Urea Nitrogen) 19 mg/dL (7.0-18.7); Bilirubin, Total Less than 0.2 mg/dL (0.2-1.2); Calc. Creatinine Clearance 0 mL/min (70-130); Calcium 8.8 mg/dL (7.8-10.44); Carbon Dioxide 24 mmol/L (22-29); Chloride 103 mmol/L (98-107); Globulin 3.5 g/dL (2.4-3.5); Glucose 81 mg/dL (70-105); Potassium 4.4 mmol/L (3.5-5.1); Protein, Total 7.7 g/dL (6.0-8.3); Sodium 136 mmol/L (136-145)
[2020-06-21 15:23] LABS: Bilirubin Negative (Negative); Blood, Urine 1+ (Negative); Clarity Clear (Clear); Glucose, Urine (Dipstick) Normal (Negative); Ketone, Urine Negative (Negative); Leukocyte 250 Leu/uL (Negative); Nitrite Negative (Negative); Protein, Urine (Dipstick) Negative (Neg-Trace); Specific Gravity, Urine 1.022 (1.002-1.036); Urobilinogen Normal mg/dL (Less than 2); pH, Urine 5.5 (5.0-9.0)
[2020-06-21 15:30] LABS: Bacteria/HPF Rare-Few HPF (None Seen)
[2020-06-21 15:31] LABS: Amphetamine Not Detected (NotDetected); Barbiturates Screen Detected (NotDetected); Benzodiazepine Screen Detected (NotDetected); Cocaine Metabolite Screen Not Detected (NotDetected); Medtox Reader # READER 1; Methamphetamine Not Detected (NotDetected); Opiate Screen Not Detected (NotDetected); Phencyclidine (PCP) Not Detected (NotDetected); THC/Cannabinoid Screen Not Detected (NotDetected); Tricyclic Screen Detected (NotDetected)
[2020-06-21 15:32] LABS: Medtox Control Line Valid? VALID (VALID); Methadone Not Detected (NotDetected); Oxycodone Screen Not Detected (NotDetected)
[2020-06-21 15:56] LABS: Digoxin Less than 0.15 ng/mL (0.8-2.0)
== END 2020-06-21 17:56 | disposition home or self-care (01) ==
LOC: ERS 14:07
DX: R10.10 Upper abdominal pain, unspecified (principal); R47.81 Slurred speech; N39.0 Urinary tract infection, site not specified; R10.816 Epigastric abdominal tenderness; R11.2 Nausea with vomiting, unspecified; G43.909 Migraine, unspecified, not intractable, without status migrainosus; I10 Essential (primary) hypertension; I34.1 Nonrheumatic mitral (valve) prolapse; F17.210 Nicotine dependence, cigarettes, uncomplicated; Z79.899 Other long term (current) drug therapy
CPT/HCPCS: 70450; 80053; 80162; 80306; 80307; 81003; 81015; 83690; 85025; 93005

== ENCOUNTER 2020-07-06 12:18 | Emergency (ER) | payer OTHER ==
[2020-07-06] MEDS ORDERED: Acetaminophen 500 MG TAB ONE (14:33)
--- NOTE | 2020-07-06 14:52 | RAD ---
LEFT SHOULDER THREE VIEWS: History: Rib fracture last week. Injury from a fall. Since then, pain is not getting any better. Comparison: 10-15-2019 FINDINGS: No evidence for acute fracture or dislocation. IMPRESSION: No evidence for acute fracture or dislocation of the left shoulder. POS: [facility]
[2020-07-06 15:04] LABS: #Basophils 0.1 thou/uL (0.0-0.2); #Eosinphils 0.1 thou/uL (0.0-0.7); #Lymphocytes 3.2 thou/uL (1.20-3.40); #Monocytes 0.4 thou/uL (0.11-0.59); #Neutrophils 6.1 thou/uL (1.40-6.50); %Basophils 0.9 % (0.0-1.0); %Eosinophils 1.2 % (0.0-10.0); %Lymphocytes 32.4 % (21.0-51.0); %Monocytes 3.8 % (0.0-10.0); %Neutrophils 61.7 % (42.0-75.0); Hemoglobin 12.3 g/dL (12.0-16.0); Mean Corpuscular HGB CONC 32.7 g/dL (32.0-36.0); Mean Corpuscular Hemoglobin 31.5 pg (27.0-31.0); Mean Corpuscular Volume 96.2 fL (78.0-98.0); Mean Platelet Volume 8.4 fL (7.4-10.4); Platelet Count 373 thou/uL (130-400); RBC Distribution Width 13.6 % (11.5-14.5); Red Blood Cell (RBC) Count 3.91 mill/uL (4.20-5.40); White Blood Cell (WBC) Count 9.9 thou/uL (4.8-10.8)
[2020-07-06 15:25] LABS: ALT (SGPT) 10 U/L (8-55); AST (SGOT) 18 U/L (5-34); Albumin 4.2 g/dL (3.5-5.0); Alkaline Phosphatase 78 U/L (40-110); Anion Gap 14 mmol/L (10-20); BUN (Urea Nitrogen) 16 mg/dL (7.0-18.7); Bilirubin, Total 0.2 mg/dL (0.2-1.2); Calc. Creatinine Clearance 0 mL/min (70-130); Calcium 8.3 mg/dL (7.8-10.44); Carbon Dioxide 25 mmol/L (22-29); Chloride 104 mmol/L (98-107); Globulin 3.6 g/dL (2.4-3.5); Glucose 83 mg/dL (70-105); Lipase 51 U/L (8-78); Potassium 4.2 mmol/L (3.5-5.1); Protein, Total 7.8 g/dL (6.0-8.3); Sodium 139 mmol/L (136-145)
[2020-07-06 15:41] LABS: Bilirubin Negative (Negative); Blood, Urine 1+ (Negative); Clarity Turbid (Clear); Glucose, Urine (Dipstick) Normal (Negative); Ketone, Urine Negative (Negative); Leukocyte 500 Leu/uL (Negative); Nitrite Negative (Negative); Protein, Urine (Dipstick) 20 mg/dL (Neg-Trace); Specific Gravity, Urine 1.024 (1.002-1.036); Squamous Epithelial 21-50 HPF (0-3); Urobilinogen Normal mg/dL (Less than 2); WBC/HPF Greater than 50 HPF (0-3); pH, Urine 5.5 (5.0-9.0)
[2020-07-06 15:42] LABS: Pregnancy Test - Urine (BHCG) Negative (Negative); Pregu Control Background? CLEAR/WHITE (CLR/WHITE); Pregu Control Bar Appear? YES (CONTROL BAR); Specific Gravity 1.024 (1.002-1.036)
[2020-07-06 15:43] LABS: Bacteria/HPF 1+ HPF (None Seen)
[2020-07-06 15:59] LABS: Renal Epithelial 0-3 HPF (None Seen)
--- NOTE | 2020-07-06 17:54 | CT ---
ABDOMEN AND PELVIC CT SCAN WITH IV CONTRAST: History: Abdominal pain, right lower quadrant pain. History of multiple falls. FINDINGS: The lung bases appear clear. There is some artifact through the region of the upper abdomen from the patient's arms being by her side. Visualized liver, gallbladder, pancreas, spleen, and adrenal glands are unremarkable. No renal calculus or acute obstruction. There is a mildly dilated fluid filled duodenum, I am not certain as to the etiology of this. This could potentially be related to some duod enitis. There are several jejunal bowel loops which are also borderline in size. This does not have t he appearance of a high grade obstruction. No evidence for free intraperitoneal fluid. Unremarkable a ppearing uterus with an IUD. No CT evidence for acute appendicitis although a normal appendix is not imaged. IMPRESSION: Mild dilatation of a fluid filled duodenum with some borderline sized left upper quadrant jejunal bow el loops, nonspecific, the possibility of duodenitis or enteritis cannot be excluded. No convincing e vidence for acute appendicitis. IUD in place within the uterus. No other acute process. POS: [facility]
[2020-07-06] MEDS ORDERED: Morphine 2 MG/ML VIAL ONE (18:23)
== END 2020-07-06 19:11 | disposition home or self-care (01) ==
LOC: ERS 12:18
DX: K52.9 Noninfective gastroenteritis and colitis, unspecified (principal); M25.512 Pain in left shoulder; R07.81 Pleurodynia; I10 Essential (primary) hypertension; F17.210 Nicotine dependence, cigarettes, uncomplicated; G43.909 Migraine, unspecified, not intractable, without status migrainosus; Z79.899 Other long term (current) drug therapy
CPT/HCPCS: 36415; 74177; 80053; 81003; 81015; 81025; 83690; 85025; 93005; 96374; J2270

== ENCOUNTER 2020-07-07 20:30 | Emergency (ER) | payer OTHER ==
[2020-07-07 22:36] LABS: Hemoglobin 10.5 g/dL (12.0-16.0); Mean Corpuscular HGB CONC 32.3 g/dL (32.0-36.0); Mean Corpuscular Hemoglobin 31.5 pg (27.0-31.0); Mean Corpuscular Volume 97.5 fL (78.0-98.0); Mean Platelet Volume 8.5 fL (7.4-10.4); Platelet Count 323 thou/uL (130-400); RBC Distribution Width 13.7 % (11.5-14.5); Red Blood Cell (RBC) Count 3.34 mill/uL (4.20-5.40); White Blood Cell (WBC) Count 7.3 thou/uL (4.8-10.8)
[2020-07-07 22:42] LABS: ALT (SGPT) 8 U/L (8-55); AST (SGOT) 15 U/L (5-34); Albumin 3.5 g/dL (3.5-5.0); Alkaline Phosphatase 64 U/L (40-110); Anion Gap 10 mmol/L (10-20); BUN (Urea Nitrogen) 11 mg/dL (7.0-18.7); Bilirubin, Total Less than 0.2 mg/dL (0.2-1.2); Calc. Creatinine Clearance 0 mL/min (70-130); Calcium 7.6 mg/dL (7.8-10.44); Carbon Dioxide 26 mmol/L (22-29); Chloride 110 mmol/L (98-107); Globulin 2.9 g/dL (2.4-3.5); Glucose 88 mg/dL (70-105); Lipase 80 U/L (8-78); Potassium 3.4 mmol/L (3.5-5.1); Protein, Total 6.4 g/dL (6.0-8.3); Sodium 143 mmol/L (136-145)
[2020-07-07] MEDS ORDERED: Lidocaine Viscous Sol 2% 15 ml UD Cup ONE (22:45)
[2020-07-07] MEDS ORDERED: Morphine 4 MG/ML VIAL ONE (22:45)
[2020-07-07] MEDS ORDERED: Ondansetron PF 4 MG/2 ML Vial ONE (22:46)
[2020-07-07] MEDS ORDERED: Mag-Al 1200 mg/1200 mg/30 ML UDCUP ONE (22:46)
--- NOTE | 2020-07-07 22:57 | RAD ---
Chest one view HISTORY: Chest pain. COMPARISON: 07/01/2020. FINDINGS: Cardiac silhouette is magnified by projection. Pulmonary vasculature is unremarkable. Mediastinum is midline. No airspace consolidation or evidence of pneumothorax. Left ninth rib fractur e detailed on recent chest radiograph is not as well visualized on the current exam. Metallic monitoring electronic device overlies the cardiac silhouette. IMPRESSION : No acute abnormalities are demonstrated.
[2020-07-07 23:06] LABS: Acetaminophen Less than 6.0 mcg/mL (10.0-30.0); Alcohol Less than 10 mg/dL (Less than 10); Salicylate Less than 8.0 mg/dL (15.0-30.0)
[2020-07-07 23:13] LABS: Eosinophils 3 % (0-10); Lymphocytes 59 % (21-51); MDiff Complete? YES; Monocytes 6 % (0-10); Neutrophil 32 % (42-75)
[2020-07-07 23:14] LABS: BHCG - Serum Negative (NEGATIVE); Pregs Control Background? CLEAR/WHITE (CLR/WHITE); Pregs Control Bar Appear? YES (CONTROL BAR)
--- NOTE | 2020-07-07 23:43 | ULT ---
Sonogram right upper quadrant HISTORY: Postprandial right upper quadrant pain. FINDINGS: Gallbladder is incompletely distended. No stones are visible. Common duct is upper limits of normal caliber at 0.7 cm. Liver unremarkable without focal mass or intrahepatic biliary dilatation. No free fluid. IMPRESSION : Common bile duct is upper limits of normal caliber of 0.7 cm. Gallbladder is not dilated. No stones v isible. If there are ongoing clinical findings raising concern for biliary obstruction, radionucleotide hepat obiliary scan could evaluate for biliary patency.
[2020-07-08 00:15] LABS: Bilirubin Negative (Negative); Blood, Urine Negative (Negative); Clarity Clear (Clear); Glucose, Urine (Dipstick) Normal (Negative); Ketone, Urine Negative (Negative); Leukocyte Negative Leu/uL (Negative); Nitrite Negative (Negative); Protein, Urine (Dipstick) Negative (Neg-Trace); Specific Gravity, Urine 1.033 (1.002-1.036); Urobilinogen Normal mg/dL (Less than 2); pH, Urine 5.5 (5.0-9.0)
[2020-07-08 00:31] LABS: Amphetamine Not Detected (NotDetected); Barbiturates Screen Detected (NotDetected); Benzodiazepine Screen Detected (NotDetected); Cocaine Metabolite Screen Not Detected (NotDetected); Medtox Control Line Valid? VALID (VALID); Medtox Reader # READER 4; Methadone Not Detected (NotDetected); Methamphetamine Not Detected (NotDetected); Opiate Screen Detected (NotDetected); Oxycodone Screen Not Detected (NotDetected); Phencyclidine (PCP) Not Detected (NotDetected); THC/Cannabinoid Screen Not Detected (NotDetected); Tricyclic Screen Detected (NotDetected)
--- NOTE | 2020-07-12 17:34 | EKG ---
Test Reason : Blood Pressure : / mmHG Vent. Rate : 074 BPM Atrial Rate : 074 BPM P-R Int : 120 ms QRS Dur : 074 ms QT Int : 424 ms P-R-T Axes : 057 012 020 degrees QTc Int : 470 ms Normal sinus rhythm Possible Left atrial enlargement Nonspecific T wave abnormality Prolonged QT Abnormal ECG Confirmed by DESIRAE YUSUF, ERIK ([id number]), legal editor DEEPA HAZEL ([id number]) on 07/12/2020 5:33:40 PM Referred By: Confirmed By:ERIK MERRILL MD
== END 2020-07-08 01:16 | disposition home or self-care (01) ==
LOC: ERS 20:30
DX: R11.2 Nausea with vomiting, unspecified (principal); R10.10 Upper abdominal pain, unspecified; I10 Essential (primary) hypertension; F17.210 Nicotine dependence, cigarettes, uncomplicated
CPT/HCPCS: 51701; 71045; 76705; 80053; 80306; 80307; 81003; 83690; 84484; 84703; 85025; 93005; 96374; J2270; J2405

== ENCOUNTER 2020-07-22 18:08 | Emergency (ER) | payer OTHER ==
[2020-07-22 19:03] LABS: #Basophils 0.1 thou/uL (0.0-0.2); #Eosinphils 0.2 thou/uL (0.0-0.7); #Lymphocytes 3.8 thou/uL (1.20-3.40); #Monocytes 0.8 thou/uL (0.11-0.59); #Neutrophils 7.1 thou/uL (1.40-6.50); %Basophils 0.8 % (0.0-1.0); %Eosinophils 1.5 % (0.0-10.0); %Lymphocytes 31.4 % (21.0-51.0); %Monocytes 6.4 % (0.0-10.0); %Neutrophils 59.8 % (42.0-75.0); Hemoglobin 11.7 g/dL (12.0-16.0); Mean Corpuscular HGB CONC 32.2 g/dL (32.0-36.0); Mean Corpuscular Hemoglobin 31.3 pg (27.0-31.0); Mean Corpuscular Volume 97.1 fL (78.0-98.0); Mean Platelet Volume 8.2 fL (7.4-10.4); Platelet Count 350 thou/uL (130-400); RBC Distribution Width 13.4 % (11.5-14.5); Red Blood Cell (RBC) Count 3.73 mill/uL (4.20-5.40); White Blood Cell (WBC) Count 11.9 thou/uL (4.8-10.8)
[2020-07-22 19:27] LABS: ALT (SGPT) 16 U/L (8-55); AST (SGOT) 16 U/L (5-34); Albumin 4.1 g/dL (3.5-5.0); Alkaline Phosphatase 79 U/L (40-110); Anion Gap 14 mmol/L (10-20); BUN (Urea Nitrogen) 16 mg/dL (7.0-18.7); Bilirubin, Total 0.2 mg/dL (0.2-1.2); Calc. Creatinine Clearance 0 mL/min (70-130); Calcium 8.7 mg/dL (7.8-10.44); Carbon Dioxide 26 mmol/L (22-29); Chloride 105 mmol/L (98-107); Globulin 3.5 g/dL (2.4-3.5); Glucose 96 mg/dL (70-105); Potassium 4.2 mmol/L (3.5-5.1); Protein, Total 7.6 g/dL (6.0-8.3); Sodium 141 mmol/L (136-145)
[2020-07-22] MEDS ORDERED: Lorazepam 2 MG/ML VIAL ONE (19:36)
[2020-07-22] MEDS ORDERED: Ondansetron PF 4 MG/2 ML Vial ONE (19:45)
[2020-07-22] MEDS ORDERED: Ketorolac Tromethamine 30 MG/ML VIAL ONE (21:04)
[2020-07-22] MEDS ORDERED: diphenhydrAMINE 50 MG/ML VIAL ONE (21:04)
--- NOTE | 2020-07-22 22:03 | CT ---
CT BRAIN WITH AND WITHOUT IV CONTRAST USING 3D POSTPROCESSING : 07/22/20 HISTORY: Chest pain, tachycardia, dyspnea. FINDINGS: There is good contrast opacification of the pulmonary arterial vasculature without filling defects to suggest pulmonary embolism. The thoracic aorta is well opacified without aneurysmal dissection. No pleural or pericardial effusions are identified. No pneumothoraces, focal areas of consolidation, lung nodules or masses are identified. No acute osseous abnormalities are seen. Upper abdominal tomograms demonstrate a contracted gallbladder without evidence of calcified gallston es. No free air or free fluid is seen in the upper abdomen. The visualized portions of the solid orga ns are unremarkable. IMPRESSION: No CT evidence of pulmonary embolism. POS: [facility]
--- NOTE | 2020-07-26 10:28 | EKG ---
Test Reason : Blood Pressure : / mmHG Vent. Rate : 126 BPM Atrial Rate : 126 BPM P-R Int : 114 ms QRS Dur : 072 ms QT Int : 326 ms P-R-T Axes : 072 040 070 degrees QTc Int : 472 ms Sinus tachycardia Cannot rule out Anterior infarct , age undetermined Abnormal ECG Lateral ischemia Confirmed by ABELARDO YUSUF, GLENN Buckley ([id number]), telegraph editor DEEPA HAZEL ([id number]) on 07/26/2020 10:28:22 AM Referred By: Confirmed By:GLENN ZHOU MD
== END 2020-07-22 22:05 | disposition home or self-care (01) ==
LOC: ERS 18:08
DX: F41.9 Anxiety disorder, unspecified (principal); R42 Dizziness and giddiness; R00.2 Palpitations; I10 Essential (primary) hypertension; F17.210 Nicotine dependence, cigarettes, uncomplicated
CPT/HCPCS: 36415; 71275; 80053; 83880; 84484; 85025; 93005; 96374; 96375; J1200; J1885; J2060; J2405; Q9967

== ENCOUNTER 2020-07-29 07:17 | Outpatient (CLI) | payer OTHER | END 2020-07-29 07:18 | disposition home or self-care (01) | LOC: NM 07:17 | PROVIDERS: ATTEND Surgery | DX: R10.9 Unspecified abdominal pain (principal) | CPT/HCPCS: 78227; A9537 ==

== ENCOUNTER 2020-07-29 15:30 | Emergency (ER) | payer OTHER ==
[2020-07-29] MEDS ORDERED: Ondansetron PF 4 MG/2 ML Vial ONE ×2 (17:27→19:35)
[2020-07-29] MEDS ORDERED: Morphine 4 MG/ML VIAL ONE ×2 (17:27→19:35)
[2020-07-29 17:44] LABS: #Basophils 0.1 thou/uL (0.0-0.2); #Eosinphils 0.1 thou/uL (0.0-0.7); #Lymphocytes 3.5 thou/uL (1.20-3.40); #Monocytes 0.6 thou/uL (0.11-0.59); #Neutrophils 4.8 thou/uL (1.40-6.50); %Basophils 0.6 % (0.0-1.0); %Eosinophils 1.1 % (0.0-10.0); %Lymphocytes 38.6 % (21.0-51.0); %Monocytes 6.1 % (0.0-10.0); %Neutrophils 53.5 % (42.0-75.0); Hemoglobin 11.2 g/dL (12.0-16.0); Mean Corpuscular HGB CONC 33.1 g/dL (32.0-36.0); Mean Corpuscular Hemoglobin 31.5 pg (27.0-31.0); Mean Corpuscular Volume 95.1 fL (78.0-98.0); Mean Platelet Volume 8.7 fL (7.4-10.4); Platelet Count 351 thou/uL (130-400); RBC Distribution Width 13.6 % (11.5-14.5); Red Blood Cell (RBC) Count 3.55 mill/uL (4.20-5.40)
[2020-07-29 17:49] LABS: BHCG - Serum Negative (NEGATIVE); Pregs Control Background? CLEAR/WHITE (CLR/WHITE); Pregs Control Bar Appear? YES (CONTROL BAR)
[2020-07-29 18:12] LABS: ALT (SGPT) 14 U/L (8-55); AST (SGOT) 16 U/L (5-34); Alkaline Phosphatase 80 U/L (40-110); Anion Gap 14 mmol/L (10-20); BUN (Urea Nitrogen) 10 mg/dL (7.0-18.7); Bilirubin, Total 0.2 mg/dL (0.2-1.2); Calc. Creatinine Clearance 0 mL/min (70-130); Calcium 8.6 mg/dL (7.8-10.44); Carbon Dioxide 22 mmol/L (22-29); Chloride 106 mmol/L (98-107); Globulin 3.2 g/dL (2.4-3.5); Glucose 88 mg/dL (70-105); Lipase 23 U/L (8-78); Potassium 4.1 mmol/L (3.5-5.1); Protein, Total 7.2 g/dL (6.0-8.3); Sodium 138 mmol/L (136-145)
[2020-07-29 18:17] LABS: Bilirubin Negative (Negative); Blood, Urine Trace (Negative); Clarity Clear (Clear); Glucose, Urine (Dipstick) Normal (Negative); Ketone, Urine Negative (Negative); Leukocyte 250 Leu/uL (Negative); Nitrite Negative (Negative); Protein, Urine (Dipstick) Negative (Neg-Trace); Specific Gravity, Urine 1.021 (1.002-1.036); Urobilinogen Normal mg/dL (Less than 2)
[2020-07-29 18:18] LABS: Bacteria/HPF 1+ HPF (None Seen)
[2020-07-29] MEDS ORDERED: Ketorolac Tromethamine 30 MG/ML VIAL ONE (19:35)
== END 2020-07-29 19:58 | disposition home or self-care (01) ==
LOC: ERS 15:30
DX: N83.02 Follicular cyst of left ovary (principal); N39.0 Urinary tract infection, site not specified; R10.11 Right upper quadrant pain; R10.13 Epigastric pain; Z79.899 Other long term (current) drug therapy; G43.909 Migraine, unspecified, not intractable, without status migrainosus; I10 Essential (primary) hypertension; F17.210 Nicotine dependence, cigarettes, uncomplicated; R10.9 Unspecified abdominal pain
CPT/HCPCS: 36415; 74177; 78227; 80053; 80162; 81003; 81015; 83690; 84703; 85025; 93005; 96374; 96375; 96376; A9537; J1885; J2270; J2405; Q9967

== ENCOUNTER 2020-09-13 12:08 | Emergency (ER) | payer OTHER ==
[2020-09-13 12:48] LABS: #Basophils 0.1 thou/uL (0.0-0.2); #Eosinphils 0.1 thou/uL (0.0-0.7); #Lymphocytes 3.2 thou/uL (1.20-3.40); #Monocytes 0.5 thou/uL (0.11-0.59); #Neutrophils 9.8 thou/uL (1.40-6.50); %Basophils 0.9 % (0.0-1.0); %Eosinophils 0.8 % (0.0-10.0); %Lymphocytes 23.2 % (21.0-51.0); %Monocytes 3.9 % (0.0-10.0); %Neutrophils 71.2 % (42.0-75.0); Hemoglobin 11.5 g/dL (12.0-16.0); Mean Corpuscular HGB CONC 32.1 g/dL (32.0-36.0); Mean Corpuscular Hemoglobin 30.2 pg (27.0-31.0); Mean Platelet Volume 8.2 fL (7.4-10.4); Platelet Count 398 thou/uL (130-400); RBC Distribution Width 14.5 % (11.5-14.5); Red Blood Cell (RBC) Count 3.79 mill/uL (4.20-5.40); White Blood Cell (WBC) Count 13.7 thou/uL (4.8-10.8)
[2020-09-13] MEDS ORDERED: Iopamidol 370 76% 100 ML VIAL ONE (12:55)
[2020-09-13 13:11] LABS: ALT (SGPT) 22 U/L (8-55); AST (SGOT) 20 U/L (5-34); Albumin 3.9 g/dL (3.5-5.0); Alkaline Phosphatase 84 U/L (40-110); Anion Gap 14 mmol/L (10-20); BUN (Urea Nitrogen) 10 mg/dL (7.0-18.7); Bilirubin, Total 0.2 mg/dL (0.2-1.2); Calc. Creatinine Clearance 0 mL/min (70-130); Calcium 9.2 mg/dL (7.8-10.44); Carbon Dioxide 29 mmol/L (22-29); Chloride 99 mmol/L (98-107); Globulin 3.3 g/dL (2.4-3.5); Glucose 70 mg/dL (70-105); Lipase 34 U/L (8-78); Potassium 3.8 mmol/L (3.5-5.1); Protein, Total 7.2 g/dL (6.0-8.3); Sodium 138 mmol/L (136-145)
[2020-09-13] MEDS ORDERED: Ondansetron PF 4 MG/2 ML Vial ONE (13:44)
[2020-09-13] MEDS ORDERED: Pantoprazole 40 MG VIAL ONE (13:44)
[2020-09-13 14:07] LABS: BHCG - Serum Negative (NEGATIVE); Pregs Control Background? CLEAR/WHITE (CLR/WHITE); Pregs Control Bar Appear? YES (CONTROL BAR)
[2020-09-13 14:17] LABS: Bacteria/HPF 4+ HPF (None Seen); Bilirubin Negative (Negative); Blood, Urine Negative (Negative); Clarity Clear (Clear); Glucose, Urine (Dipstick) Normal (Negative); Ketone, Urine Negative (Negative); Leukocyte 25 Leu/uL (Negative); Nitrite Negative (Negative); Protein, Urine (Dipstick) Negative (Neg-Trace); RBC/HPF 0-3 HPF (0-3); Specific Gravity, Urine 1.005 (1.002-1.036); Squamous Epithelial 0-3 HPF (0-3); Urobilinogen Normal mg/dL (Less than 2)
== END 2020-09-13 15:53 | disposition home or self-care (01) ==
LOC: ERS 12:08
DX: R11.2 Nausea with vomiting, unspecified (principal); R10.13 Epigastric pain; I10 Essential (primary) hypertension; F17.210 Nicotine dependence, cigarettes, uncomplicated; Z79.899 Other long term (current) drug therapy
CPT/HCPCS: 36415; 70450; 71275; 74174; 80053; 81003; 81015; 83690; 84484; 84703; 85025; 86850; 86900; 86901; 93005; 96365; 96375; C9113; J2405; Q9967

== ENCOUNTER 2020-09-21 13:37 | Emergency (ER) | payer OTHER ==
[2020-09-21 14:18] LABS: #Lymphocytes 1.2 thou/uL (1.20-3.40); #Monocytes 0.3 thou/uL (0.11-0.59); #Neutrophils 12.9 thou/uL (1.40-6.50); %Basophils 0.2 % (0.0-1.0); %Eosinophils 0.2 % (0.0-10.0); %Lymphocytes 8.5 % (21.0-51.0); %Monocytes 2.2 % (0.0-10.0); Hemoglobin 12.1 g/dL (12.0-16.0); Mean Corpuscular Hemoglobin 30.5 pg (27.0-31.0); Mean Corpuscular Volume 92.5 fL (78.0-98.0); Mean Platelet Volume 8.5 fL (7.4-10.4); Platelet Count 354 thou/uL (130-400); RBC Distribution Width 14.6 % (11.5-14.5); Red Blood Cell (RBC) Count 3.97 mill/uL (4.20-5.40); White Blood Cell (WBC) Count 14.5 thou/uL (4.8-10.8)
[2020-09-21] MEDS ORDERED: Lorazepam 2 MG/ML VIAL ONE (14:31)
[2020-09-21 14:37] LABS: ALT (SGPT) 23 U/L (8-55); AST (SGOT) 27 U/L (5-34); Albumin 4.2 g/dL (3.5-5.0); Alkaline Phosphatase 78 U/L (40-110); Anion Gap 23 mmol/L (10-20); BUN (Urea Nitrogen) 7 mg/dL (7.0-18.7); Bilirubin, Total 0.4 mg/dL (0.2-1.2); Calc. Creatinine Clearance 0 mL/min (70-130); Calcium 9.2 mg/dL (7.8-10.44); Carbon Dioxide 14 mmol/L (22-29); Chloride 107 mmol/L (98-107); Globulin 3.6 g/dL (2.4-3.5); Glucose 202 mg/dL (70-105); Potassium 4.3 mmol/L (3.5-5.1); Protein, Total 7.8 g/dL (6.0-8.3); Sodium 140 mmol/L (136-145)
[2020-09-21] MEDS ORDERED: Promethazine HCl 25 MG/ML VIAL ONE ×2 (14:41→16:01)
[2020-09-21] MEDS ORDERED: Ondansetron PF 4 MG/2 ML Vial ONE (15:36)
== END 2020-09-21 16:53 | disposition home or self-care (01) ==
LOC: ERS 13:37
DX: E86.0 Dehydration (principal); R11.2 Nausea with vomiting, unspecified; I10 Essential (primary) hypertension; F41.9 Anxiety disorder, unspecified; F17.210 Nicotine dependence, cigarettes, uncomplicated; Z79.899 Other long term (current) drug therapy
CPT/HCPCS: 80053; 85025; 96365; 96366; 96375; J2060; J2405; J2550

== ENCOUNTER 2020-10-07 16:27 | Emergency (ER) | payer OTHER ==
[2020-10-07 17:14] LABS: #Basophils 0.1 thou/uL (0.0-0.2); #Eosinphils 0.2 thou/uL (0.0-0.7); #Lymphocytes 3.8 thou/uL (1.20-3.40); #Monocytes 0.5 thou/uL (0.11-0.59); %Basophils 1.3 % (0.0-1.0); %Eosinophils 1.9 % (0.0-10.0); %Monocytes 5.5 % (0.0-10.0); %Neutrophils 46.3 % (42.0-75.0); Hemoglobin 12.5 g/dL (12.0-16.0); Mean Corpuscular HGB CONC 31.7 g/dL (32.0-36.0); Mean Corpuscular Hemoglobin 29.3 pg (27.0-31.0); Mean Corpuscular Volume 92.7 fL (78.0-98.0); Mean Platelet Volume 8.8 fL (7.4-10.4); Platelet Count 392 thou/uL (130-400); RBC Distribution Width 14.7 % (11.5-14.5); Red Blood Cell (RBC) Count 4.26 mill/uL (4.20-5.40); White Blood Cell (WBC) Count 8.5 thou/uL (4.8-10.8)
[2020-10-07 17:34] LABS: PTT 25.7 sec (22.9-36.1); Prothrombin Time 13.4 sec (12.0-14.7)
[2020-10-07 17:40] LABS: Digoxin 0.28 ng/mL (0.8-2.0)
[2020-10-07 17:46] LABS: ALT (SGPT) 10 U/L (8-55); AST (SGOT) 13 U/L (5-34); Acetaminophen Less than 6.0 mcg/mL (10.0-30.0); Albumin 3.4 g/dL (3.5-5.0); Alcohol Less than 10 mg/dL (Less than 10); Alkaline Phosphatase 65 U/L (40-110); Anion Gap 12 mmol/L (10-20); BUN (Urea Nitrogen) 20 mg/dL (7.0-18.7); Bilirubin, Total 0.3 mg/dL (0.2-1.2); CK (CPK) 23 U/L (29-168); Calc. Creatinine Clearance 0 mL/min (70-130); Calcium 8.4 mg/dL (7.8-10.44); Carbon Dioxide 26 mmol/L (22-29); Chloride 102 mmol/L (98-107); Globulin 2.9 g/dL (2.4-3.5); Glucose 93 mg/dL (70-105); Magnesium 1.8 mg/dL (1.6-2.6); Potassium 3.7 mmol/L (3.5-5.1); Protein, Total 6.3 g/dL (6.0-8.3); Salicylate Less than 8.0 mg/dL (15.0-30.0); Sodium 136 mmol/L (136-145)
[2020-10-07 18:16] LABS: Bacteria/HPF 2+ HPF (None Seen); Bilirubin Negative (Negative); Blood, Urine Trace (Negative); Clarity Turbid (Clear); Glucose, Urine (Dipstick) Normal (Negative); Ketone, Urine Negative (Negative); Leukocyte 500 Leu/uL (Negative); Nitrite Negative (Negative); Protein, Urine (Dipstick) 50 mg/dL (Neg-Trace); Specific Gravity, Urine 1.022 (1.002-1.036); Urobilinogen Normal mg/dL (Less than 2); WBC/HPF 21-50 HPF (0-3); pH, Urine 5.5 (5.0-9.0)
[2020-10-07 18:18] LABS: Pregnancy Test - Urine (BHCG) Negative (Negative); Pregu Control Background? CLEAR/WHITE (CLR/WHITE); Pregu Control Bar Appear? YES (CONTROL BAR); Specific Gravity 1.022 (1.002-1.036)
[2020-10-07 18:25] LABS: Amphetamine Not Detected (NotDetected); Barbiturates Screen Not Detected (NotDetected); Benzodiazepine Screen Detected (NotDetected); Cocaine Metabolite Screen Not Detected (NotDetected); Medtox Control Line Valid? VALID (VALID); Medtox Reader # READER 1; Methadone Not Detected (NotDetected); Methamphetamine Not Detected (NotDetected); Opiate Screen Not Detected (NotDetected); Oxycodone Screen Not Detected (NotDetected); Phencyclidine (PCP) Not Detected (NotDetected); THC/Cannabinoid Screen Not Detected (NotDetected); Tricyclic Screen Detected (NotDetected)
== END 2020-10-07 19:08 | disposition home or self-care (01) ==
LOC: ERS 16:27
DX: N30.00 Acute cystitis without hematuria (principal); E86.0 Dehydration; I10 Essential (primary) hypertension; F17.210 Nicotine dependence, cigarettes, uncomplicated; Z79.899 Other long term (current) drug therapy
CPT/HCPCS: 36415; 80053; 80162; 80306; 80307; 81003; 81015; 81025; 82550; 83735; 83880; 84443; 84484; 85025; 85610; 85730; 93005

== ENCOUNTER 2020-10-09 15:03 | Emergency (ER) | payer OTHER ==
[2020-10-09 15:33] LABS: Bilirubin Negative (Negative); Blood, Urine Negative (Negative); Clarity Clear (Clear); Glucose, Urine (Dipstick) Normal (Negative); Ketone, Urine Negative (Negative); Leukocyte Negative Leu/uL (Negative); Nitrite Negative (Negative); Protein, Urine (Dipstick) Negative (Neg-Trace); Specific Gravity, Urine 1.006 (1.002-1.036); Urobilinogen Normal mg/dL (Less than 2)
[2020-10-09] MEDS ORDERED: diphenhydrAMINE 50 MG/ML VIAL ONE (15:35)
[2020-10-09] MEDS ORDERED: Ketorolac Tromethamine 30 MG/ML VIAL ONE (15:35)
[2020-10-09] MEDS ORDERED: Promethazine HCl 25 MG/ML VIAL ONE (15:35)
[2020-10-09 15:40] LABS: #Basophils 0.1 thou/uL (0.0-0.2); #Eosinphils 0.1 thou/uL (0.0-0.7); #Lymphocytes 3.6 thou/uL (1.20-3.40); #Monocytes 0.6 thou/uL (0.11-0.59); %Basophils 0.7 % (0.0-1.0); %Eosinophils 0.9 % (0.0-10.0); %Lymphocytes 38.1 % (21.0-51.0); %Monocytes 6.5 % (0.0-10.0); %Neutrophils 53.9 % (42.0-75.0); Hemoglobin 12.4 g/dL (12.0-16.0); Mean Corpuscular HGB CONC 33.5 g/dL (32.0-36.0); Mean Corpuscular Volume 92.6 fL (78.0-98.0); Mean Platelet Volume 8.7 fL (7.4-10.4); Platelet Count 357 thou/uL (130-400); RBC Distribution Width 14.2 % (11.5-14.5); Red Blood Cell (RBC) Count 4.01 mill/uL (4.20-5.40); White Blood Cell (WBC) Count 9.4 thou/uL (4.8-10.8)
[2020-10-09 16:05] LABS: ALT (SGPT) 8 U/L (8-55); AST (SGOT) 14 U/L (5-34); Acetaminophen Less than 6.0 mcg/mL (10.0-30.0); Alcohol Less than 10 mg/dL (Less than 10); Alkaline Phosphatase 71 U/L (40-110); Anion Gap 11 mmol/L (10-20); BUN (Urea Nitrogen) 13 mg/dL (7.0-18.7); Bilirubin, Total 0.2 mg/dL (0.2-1.2); CK (CPK) 37 U/L (29-168); Calc. Creatinine Clearance 0 mL/min (70-130); Calcium 9.3 mg/dL (7.8-10.44); Carbon Dioxide 27 mmol/L (22-29); Chloride 103 mmol/L (98-107); Globulin 3.3 g/dL (2.4-3.5); Glucose 103 mg/dL (70-105); Lipase 43 U/L (8-78); Magnesium 1.7 mg/dL (1.6-2.6); Potassium 3.9 mmol/L (3.5-5.1); Protein, Total 7.3 g/dL (6.0-8.3); Salicylate Less than 8.0 mg/dL (15.0-30.0); Sodium 137 mmol/L (136-145)
[2020-10-09 16:37] LABS: Amphetamine Not Detected (NotDetected); Barbiturates Screen Not Detected (NotDetected); Benzodiazepine Screen Not Detected (NotDetected); Cocaine Metabolite Screen Not Detected (NotDetected); Medtox Control Line Valid? VALID (VALID); Medtox Reader # READER 4; Methadone Not Detected (NotDetected); Methamphetamine Not Detected (NotDetected); Opiate Screen Not Detected (NotDetected); Oxycodone Screen Not Detected (NotDetected); Phencyclidine (PCP) Not Detected (NotDetected); THC/Cannabinoid Screen Not Detected (NotDetected); Tricyclic Screen Not Detected (NotDetected)
[2020-10-09] MEDS ORDERED: Bupivacaine 0.5% 10 ML VIAL ONE (17:12)
== END 2020-10-09 17:52 | disposition home or self-care (01) ==
LOC: ERS 15:03
DX: I95.1 Orthostatic hypotension (principal); R51.9 Headache, unspecified; I10 Essential (primary) hypertension; F17.210 Nicotine dependence, cigarettes, uncomplicated; Z79.899 Other long term (current) drug therapy
CPT/HCPCS: 36415; 64461; 80053; 80306; 80307; 81003; 82550; 83690; 83735; 84484; 85025; 93005; 96365; 96375; J1200; J1885; J2550; J3490

== ENCOUNTER 2020-10-13 11:42 | Observation (INO) | payer OTHER ==
[2020-10-13 13:34] LABS: #Lymphocytes 0.9 thou/uL (1.20-3.40); #Monocytes 0.1 thou/uL (0.11-0.59); #Neutrophils 6.7 thou/uL (1.40-6.50); %Basophils 0.1 % (0.0-1.0); %Eosinophils 0.1 % (0.0-10.0); %Lymphocytes 11.9 % (21.0-51.0); %Monocytes 1.1 % (0.0-10.0); %Neutrophils 86.8 % (42.0-75.0); Hemoglobin 12.6 g/dL (12.0-16.0); Mean Corpuscular Hemoglobin 31.6 pg (27.0-31.0); Mean Corpuscular Volume 92.9 fL (78.0-98.0); Mean Platelet Volume 8.9 fL (7.4-10.4); Platelet Count 311 thou/uL (130-400); RBC Distribution Width 14.6 % (11.5-14.5); White Blood Cell (WBC) Count 7.7 thou/uL (4.8-10.8)
[2020-10-13 13:52] LABS: ALT (SGPT) 11 U/L (8-55); AST (SGOT) 17 U/L (5-34); Albumin 4.3 g/dL (3.5-5.0); Alkaline Phosphatase 73 U/L (40-110); Anion Gap 16 mmol/L (10-20); BUN (Urea Nitrogen) 12 mg/dL (7.0-18.7); Bilirubin, Total 0.3 mg/dL (0.2-1.2); Calc. Creatinine Clearance 0 mL/min (70-130); Calcium 9.2 mg/dL (7.8-10.44); Carbon Dioxide 22 mmol/L (22-29); Chloride 106 mmol/L (98-107); Globulin 3.4 g/dL (2.4-3.5); Glucose 148 mg/dL (70-105); Potassium 3.7 mmol/L (3.5-5.1); Protein, Total 7.7 g/dL (6.0-8.3); Sodium 140 mmol/L (136-145)
[2020-10-13] MEDS ORDERED: Ondansetron PF 4 MG/2 ML Vial IVP PRN (15:55)
[2020-10-13] MEDS ORDERED: Acetaminophen 325 MG TAB PO PRN (15:55)
[2020-10-13] MEDS: Ondansetron ODT 4 MG TAB PO PRN ×2 (16:23→21:30)
[2020-10-13] MEDS ORDERED: Ondansetron ODT 4 MG TAB ONE ×2 (16:24→20:45)
[2020-10-13] MEDS ORDERED: Acetaminophen 325 MG TAB ONE (16:42)
[2020-10-13 16:48] LABS: Hemoglobin A1c 5.2 % (4.0-6.0)
[2020-10-13 17:06] LABS: Phosphorus 2.6 mg/dL (2.3-4.7)
[2020-10-13] MEDS ORDERED: hydrALAZINE 20 MG/ML VIAL SLOW IVP PRN (18:10)
[2020-10-13] MEDS ORDERED: Ondansetron ODT 4 MG TAB PO SCH (20:30)
[2020-10-13] MEDS ORDERED: Metoclopramide HCl 10 MG/2 ML VIAL IVP SCH (20:30)
[2020-10-13] MEDS ORDERED: Ondansetron PF 4 MG/2 ML Vial IVP SCH (21:00)
[2020-10-13 22:27] VITALS: BMI 24.4
[2020-10-13] MEDS: Lactated Ringer's 1,000 ML IV SCH (22:56)
[2020-10-13] MEDS: Promethazine HCl 12.5 MG SUPP PR SCH (22:57)
[2020-10-14 00:24] LABS: SARS-CoV-2 NAA Rapid Test Not Detected (NotDetected)
[2020-10-14] MEDS ORDERED: Fioricet 325/50/40 mg Tablet PO SCH (01:00)
[2020-10-14] MEDS: Ondansetron PF 4 MG/2 ML Vial IVP SCH ×4 (01:13→16:47)
[2020-10-14] MEDS: Promethazine HCl 12.5 MG SUPP PR SCH ×3 (05:45→21:44)
[2020-10-14 05:46] LABS: #Basophils 0.1 thou/uL (0.0-0.2); #Lymphocytes 1.9 thou/uL (1.20-3.40); #Monocytes 0.6 thou/uL (0.11-0.59); #Neutrophils 8.2 thou/uL (1.40-6.50); %Basophils 0.6 % (0.0-1.0); %Eosinophils 0.1 % (0.0-10.0); %Lymphocytes 17.2 % (21.0-51.0); %Monocytes 5.8 % (0.0-10.0); %Neutrophils 76.4 % (42.0-75.0); Hemoglobin 11.7 g/dL (12.0-16.0); Mean Corpuscular HGB CONC 33.8 g/dL (32.0-36.0); Mean Corpuscular Hemoglobin 31.2 pg (27.0-31.0); Mean Corpuscular Volume 92.5 fL (78.0-98.0); Mean Platelet Volume 9.5 fL (7.4-10.4); Platelet Count 326 thou/uL (130-400); RBC Distribution Width 14.7 % (11.5-14.5); Red Blood Cell (RBC) Count 3.74 mill/uL (4.20-5.40); White Blood Cell (WBC) Count 10.8 thou/uL (4.8-10.8)
[2020-10-14 06:15] LABS: Anion Gap 13 mmol/L (10-20); BUN (Urea Nitrogen) 11 mg/dL (7.0-18.7); Calc. Creatinine Clearance 119 mL/min (70-130); Calcium 9.1 mg/dL (7.8-10.44); Carbon Dioxide 24 mmol/L (22-29); Cardiac Risk 3.8 (Less than 4.5); Chloride 104 mmol/L (98-107); Cholesterol 195 mg/dl (< 200 Desired); Glucose 102 mg/dL (70-105); HDL Cholesterol 52 mg/dL (>60 Neg Risk); LDL Cholesterol, Calculated 129 mg/dL; Potassium 3.4 mmol/L (3.5-5.1); Sodium 138 mmol/L (136-145); Triglycerides 68 mg/dL (Less than 150)
[2020-10-14] MEDS: Lactated Ringer's 1,000 ML IV SCH ×2 (07:26→14:28)
[2020-10-14 07:30] LABS: Amphetamine Not Detected (NotDetected); Barbiturates Screen Detected (NotDetected); Benzodiazepine Screen Detected (NotDetected); Cocaine Metabolite Screen Not Detected (NotDetected); Medtox Control Line Valid? VALID (VALID); Medtox Reader # READER 4; Methadone Not Detected (NotDetected); Methamphetamine Not Detected (NotDetected); Opiate Screen Not Detected (NotDetected); Oxycodone Screen Not Detected (NotDetected); Phencyclidine (PCP) Not Detected (NotDetected); THC/Cannabinoid Screen Not Detected (NotDetected); Tricyclic Screen Not Detected (NotDetected)
[2020-10-14] MEDS: Enoxaparin Sodium 40 MG/0.4 ML SYRINGE SC SCH (07:36)
[2020-10-14] MEDS: Atenolol 25 MG TAB PO SCH (07:36)
[2020-10-14] MEDS: Gabapentin 100 MG CAP PO SCH ×3 (07:37→21:43)
[2020-10-14] MEDS: FLUoxetine HCl 20 MG CAP PO SCH (07:38)
[2020-10-14] MEDS ORDERED: Iopamidol-370 76% 500 ML 1 ML ONE (08:52)
[2020-10-14] MEDS: Fioricet 325/50/40 mg Tablet PO SCH ×3 (08:59→21:44)
[2020-10-14] MEDS ORDERED: Gabapentin 300 MG CAP PO SCH (09:00)
[2020-10-14 12:13] LABS: BHCG - Serum Negative (NEGATIVE); Pregs Control Background? CLEAR/WHITE (CLR/WHITE); Pregs Control Bar Appear? YES (CONTROL BAR)
[2020-10-14] MEDS ORDERED: Atenolol 25 MG TAB PO SCH (21:00)
[2020-10-14] MEDS ORDERED: Zolpidem Tartrate 5 MG TAB PO SCH (21:00)
[2020-10-14] MEDS ORDERED: Metoclopramide HCl 10 MG/2 ML VIAL IVP SCH (21:15)
[2020-10-15] MEDS: Lactated Ringer's 1,000 ML IV SCH ×2 (00:35→05:39)
[2020-10-15] MEDS: Ondansetron PF 4 MG/2 ML Vial IVP SCH ×3 (00:35→11:11)
[2020-10-15 05:04] LABS: #Basophils 0.1 thou/uL (0.0-0.2); #Lymphocytes 2.2 thou/uL (1.20-3.40); #Monocytes 0.6 thou/uL (0.11-0.59); #Neutrophils 6.4 thou/uL (1.40-6.50); %Basophils 0.7 % (0.0-1.0); %Eosinophils 0.2 % (0.0-10.0); %Lymphocytes 24.2 % (21.0-51.0); %Neutrophils 68.9 % (42.0-75.0); Hemoglobin 11.6 g/dL (12.0-16.0); Mean Corpuscular HGB CONC 32.9 g/dL (32.0-36.0); Mean Corpuscular Hemoglobin 30.2 pg (27.0-31.0); Mean Platelet Volume 9.2 fL (7.4-10.4); Platelet Count 321 thou/uL (130-400); RBC Distribution Width 14.4 % (11.5-14.5); Red Blood Cell (RBC) Count 3.85 mill/uL (4.20-5.40); White Blood Cell (WBC) Count 9.3 thou/uL (4.8-10.8)
[2020-10-15 05:27] LABS: Anion Gap 11 mmol/L (10-20); BUN (Urea Nitrogen) 6 mg/dL (7.0-18.7); Calc. Creatinine Clearance 117 mL/min (70-130); Calcium 8.9 mg/dL (7.8-10.44); Carbon Dioxide 27 mmol/L (22-29); Chloride 102 mmol/L (98-107); Glucose 103 mg/dL (70-105); Potassium 3.4 mmol/L (3.5-5.1); Sodium 137 mmol/L (136-145)
[2020-10-15] MEDS ORDERED: SUMAtriptan Succinate 6 MG/0.5 ML VIAL SC PRN (05:39)
[2020-10-15] MEDS: Atenolol 25 MG TAB PO SCH (08:12)
[2020-10-15] MEDS: Gabapentin 100 MG CAP PO SCH ×2 (08:12→14:33)
[2020-10-15] MEDS: FLUoxetine HCl 20 MG CAP PO SCH (08:13)
[2020-10-15] MEDS: Enoxaparin Sodium 40 MG/0.4 ML SYRINGE SC SCH (08:13)
[2020-10-15 08:52] LABS: Bacteria/HPF None Seen HPF (None Seen); Bilirubin Negative (Negative); Blood, Urine 3+ (Negative); Glucose, Urine (Dipstick) Normal (Negative); Ketone, Urine 10 mg/dL (Negative); Leukocyte 75 Leu/uL (Negative); Nitrite Negative (Negative); Protein, Urine (Dipstick) 20 mg/dL (Neg-Trace); RBC/HPF Greater than 50 HPF (0-3); Specific Gravity, Urine 1.009 (1.002-1.036); Squamous Epithelial 0-3 HPF (0-3); Urobilinogen Normal mg/dL (Less than 2); pH, Urine 7.5 (5.0-9.0)
[2020-10-15 08:53] LABS: Clarity Cloudy (Clear)
[2020-10-15 08:55] LABS: Urine Culture Reflex Yes Yes
[2020-10-15] MEDS ORDERED: Losartan 25 MG TAB PO SCH (09:00)
[2020-10-15] MEDS: Fioricet 325/50/40 mg Tablet PO SCH ×2 (09:59→14:34)
[2020-10-15] MEDS ORDERED: Metoclopramide HCl 10 MG TAB PO SCH (11:00)
[2020-10-15 15:43] VITALS: BP 158/103; TEMP 98.9
== END 2020-10-15 17:33 | disposition home or self-care (01) ==
LOC: ERS 11:42 → ERHOLD 14:56 → 2SE 20:53
PROVIDERS: ADMIT Internal Medicine; ATTEND Internal Medicine
DX: U07.1 COVID-19 (principal); G43.809 Other migraine, not intractable, without status migrainosus; I95.1 Orthostatic hypotension; G43.A0 Cyclical vomiting, in migraine, not intractable; Q79.60 Ehlers-Danlos syndrome, unspecified; F17.210 Nicotine dependence, cigarettes, uncomplicated; I08.3 Combined rheumatic disorders of mitral, aortic and tricuspid valves; R07.89 Other chest pain; I10 Essential (primary) hypertension; R31.9 Hematuria, unspecified; Z79.899 Other long term (current) drug therapy; Z88.1 Allergy status to other antibiotic agents; Z88.8 Allergy status to other drugs, medicaments and biological substances
CPT/HCPCS: 36415; 70450; 70496; 70498; 70551; 80048; 80053; 80061; 80306; 81001; 83036; 83735; 84100; 84439; 84443; 84484; 84703; 85025; 87086; 93005; 93010; 93306; 96372; 96374; 96375; 96376; G0378; J1650; J2405; J2765; Q0162; Q9967; U0002; U0005

== ENCOUNTER 2020-10-18 19:04 | Observation (INO) | payer OTHER ==
[2020-10-18 19:40] LABS: #Basophils 0.1 thou/uL (0.0-0.2); #Eosinphils 0.5 thou/uL (0.0-0.7); #Monocytes 0.6 thou/uL (0.11-0.59); %Basophils 1.1 % (0.0-1.0); %Eosinophils 4.4 % (0.0-10.0); %Lymphocytes 49.4 % (21.0-51.0); %Monocytes 5.9 % (0.0-10.0); %Neutrophils 39.3 % (42.0-75.0); Hemoglobin 10.8 g/dL (12.0-16.0); Mean Corpuscular Hemoglobin 31.2 pg (27.0-31.0); Mean Corpuscular Volume 94.7 fL (78.0-98.0); Mean Platelet Volume 8.8 fL (7.4-10.4); Platelet Count 318 thou/uL (130-400); RBC Distribution Width 14.8 % (11.5-14.5); Red Blood Cell (RBC) Count 3.46 mill/uL (4.20-5.40); White Blood Cell (WBC) Count 10.1 thou/uL (4.8-10.8)
[2020-10-18 19:45] LABS: BHCG - Serum Negative (NEGATIVE); Pregs Control Background? CLEAR/WHITE (CLR/WHITE); Pregs Control Bar Appear? YES (CONTROL BAR)
[2020-10-18 20:02] LABS: ALT (SGPT) 20 U/L (8-55); AST (SGOT) 14 U/L (5-34); Albumin 3.7 g/dL (3.5-5.0); Alkaline Phosphatase 58 U/L (40-110); Anion Gap 10 mmol/L (10-20); BUN (Urea Nitrogen) 17 mg/dL (7.0-18.7); Bilirubin, Total Less than 0.2 mg/dL (0.2-1.2); Calc. Creatinine Clearance 0 mL/min (70-130); Calcium 8.4 mg/dL (7.8-10.44); Carbon Dioxide 30 mmol/L (22-29); Chloride 101 mmol/L (98-107); Globulin 2.7 g/dL (2.4-3.5); Glucose 71 mg/dL (70-105); Potassium 3.2 mmol/L (3.5-5.1); Protein, Total 6.4 g/dL (6.0-8.3); Sodium 138 mmol/L (136-145)
[2020-10-18] MEDS ORDERED: Acetaminophen 325 MG TAB PO PRN (22:52)
[2020-10-18] MEDS ORDERED: Ondansetron ORAL SOLN. 4 MG/5 ML UDCUP PO PRN (22:55)
[2020-10-18] MEDS ORDERED: Lactated Ringer's 1,000 ML IV SCH (23:00)
[2020-10-18] MEDS ORDERED: Potassium Chloride 20 MEQ TAB PO SCH (23:15)
[2020-10-19 01:51] VITALS: BMI 25.0
[2020-10-19] MEDS ORDERED: SUMAtriptan Succinate 6 MG/0.5 ML VIAL SC PRN (02:16)
[2020-10-19 02:36] LABS: SARS-CoV-2 NAA Rapid Test Not Detected (NotDetected)
[2020-10-19 06:26] LABS: Anion Gap 7 mmol/L (10-20); BUN (Urea Nitrogen) 14 mg/dL (7.0-18.7); Calc. Creatinine Clearance 109 mL/min (70-130); Calcium 7.9 mg/dL (7.8-10.44); Carbon Dioxide 29 mmol/L (22-29); Chloride 107 mmol/L (98-107); Glucose 104 mg/dL (70-105); Potassium 3.6 mmol/L (3.5-5.1); Sodium 139 mmol/L (136-145)
[2020-10-19] MEDS ORDERED: Fioricet 325/50/40 mg Tablet PO SCH (09:00)
[2020-10-19 11:15] VITALS: BP 113/71; TEMP 98
== END 2020-10-19 10:58 | disposition home or self-care (01) ==
LOC: ERS 19:04 → SURG B 21:52
PROVIDERS: ADMIT Family Medicine; ATTEND Family Medicine
DX: N17.9 Acute kidney failure, unspecified (principal); I95.9 Hypotension, unspecified; I47.1 Supraventricular tachycardia; I10 Essential (primary) hypertension; Q79.60 Ehlers-Danlos syndrome, unspecified; I95.1 Orthostatic hypotension; G43.109 Migraine with aura, not intractable, without status migrainosus; F17.210 Nicotine dependence, cigarettes, uncomplicated; R47.81 Slurred speech; Z79.899 Other long term (current) drug therapy; Z88.8 Allergy status to other drugs, medicaments and biological substances; Z20.822 Contact with and (suspected) exposure to COVID-19
CPT/HCPCS: 36415; 71045; 80048; 80053; 83735; 84703; 85025; 93005; G0378; U0002; U0005

== ENCOUNTER 2020-11-05 23:33 | Emergency (ER) | payer OTHER ==
[2020-11-06] MEDS ORDERED: diphenhydrAMINE 50 MG/ML VIAL ONE (02:37)
[2020-11-06] MEDS ORDERED: Metoclopramide HCl 10 MG/2 ML VIAL ONE (02:37)
[2020-11-06] MEDS ORDERED: Metoclopramide 10 MG/10 ML UDCUP ONE (02:37)
[2020-11-06] MEDS ORDERED: Ondansetron PF 4 MG/2 ML Vial ONE (03:31)
[2020-11-06] MEDS ORDERED: Magnesium 2 GM/50 ML BAG (IN WATER) ONE (04:22)
[2020-11-06] MEDS ORDERED: Haloperidol 5 MG TAB PO SCH (04:45)
[2020-11-06] MEDS ORDERED: Promethazine HCl 25 MG/ML VIAL ONE (05:43)
[2020-11-06] MEDS ORDERED: Ketorolac Tromethamine 30 MG/ML VIAL ONE (05:43)
== END 2020-11-06 06:33 | disposition home or self-care (01) ==
LOC: ERS 23:33
DX: G43.909 Migraine, unspecified, not intractable, without status migrainosus (principal); I10 Essential (primary) hypertension; F17.210 Nicotine dependence, cigarettes, uncomplicated; Z79.899 Other long term (current) drug therapy
CPT/HCPCS: 96365; 96375; J1200; J1885; J2405; J2550; J2765; J3475

== ENCOUNTER 2020-11-10 15:43 | Emergency (ER) | payer OTHER | END 2020-11-10 16:38 | disposition left against medical advice (07) | LOC: ERS 15:43 | DX: Z53.21 Procedure and treatment not carried out due to patient leaving prior to being seen by health care provider (principal) ==

== ENCOUNTER 2020-11-13 10:40 | Observation (INO) | payer OTHER ==
[2020-11-13] MEDS ORDERED: Iopamidol-370 76% 500 ML 1 ML ONE (10:43)
[2020-11-13] MEDS ORDERED: Promethazine HCl 25 MG/ML VIAL ONE ×2 (11:03→15:53)
[2020-11-13] MEDS ORDERED: Morphine 4 MG/ML VIAL ONE (11:04)
[2020-11-13 11:43] LABS: #Lymphocytes 0.8 thou/uL (1.20-3.40); #Monocytes 0.3 thou/uL (0.11-0.59); #Neutrophils 7.6 thou/uL (1.40-6.50); %Basophils 0.4 % (0.0-1.0); %Eosinophils 0.1 % (0.0-10.0); %Lymphocytes 9.1 % (21.0-51.0); %Monocytes 3.2 % (0.0-10.0); %Neutrophils 87.2 % (42.0-75.0); Hemoglobin 10.4 g/dL (12.0-16.0); Mean Corpuscular HGB CONC 31.2 g/dL (32.0-36.0); Mean Corpuscular Hemoglobin 29.1 pg (27.0-31.0); Mean Corpuscular Volume 93.2 fL (78.0-98.0); Mean Platelet Volume 8.4 fL (7.4-10.4); Platelet Count 398 thou/uL (130-400); RBC Distribution Width 14.8 % (11.5-14.5); Red Blood Cell (RBC) Count 3.59 mill/uL (4.20-5.40); White Blood Cell (WBC) Count 8.8 thou/uL (4.8-10.8)
[2020-11-13 11:52] LABS: BHCG - Serum Negative (NEGATIVE); Pregs Control Background? CLEAR/WHITE (CLR/WHITE); Pregs Control Bar Appear? YES (CONTROL BAR)
[2020-11-13 12:27] LABS: ALT (SGPT) 8 U/L (8-55); AST (SGOT) 13 U/L (5-34); Albumin 3.9 g/dL (3.5-5.0); Alkaline Phosphatase 71 U/L (40-110); Anion Gap 16 mmol/L (10-20); BUN (Urea Nitrogen) 7 mg/dL (7.0-18.7); Bilirubin, Total 0.4 mg/dL (0.2-1.2); CK (CPK) 59 U/L (29-168); Calc. Creatinine Clearance 0 mL/min (70-130); Calcium 8.7 mg/dL (7.8-10.44); Carbon Dioxide 21 mmol/L (22-29); Chloride 105 mmol/L (98-107); Globulin 3.2 g/dL (2.4-3.5); Glucose 153 mg/dL (70-105); Protein, Total 7.1 g/dL (6.0-8.3); Sodium 138 mmol/L (136-145)
[2020-11-13] MEDS ORDERED: Fentanyl 100 MCG/2 ML VIAL ONE (13:39)
[2020-11-13] MEDS ORDERED: Labetalol HCl 100 MG/20 ML VIAL ONE (14:51)
[2020-11-13] MEDS ORDERED: Ibuprofen 200 MG TAB PO PRN (16:17)
[2020-11-13] MEDS ORDERED: Ondansetron PF 4 MG/2 ML Vial IVP PRN (16:17)
[2020-11-13] MEDS ORDERED: Promethazine 25 MG TAB PO PRN (16:17)
[2020-11-13] MEDS ORDERED: Acetaminophen 650 MG Suppository PR PRN (16:17)
[2020-11-13] MEDS ORDERED: Acetaminophen 500 MG TAB PO PRN (16:17)
[2020-11-13 16:50] LABS: Troponin I Less than 0.010 ng/mL (< 0.028)
[2020-11-13] MEDS: Lactated Ringer's 1,000 ML IV SCH (18:38)
[2020-11-13] MEDS ORDERED: Fentanyl 100 MCG/2 ML VIAL SLOW IVP PRN (19:02)
[2020-11-13] MEDS ORDERED: hydrALAZINE 20 MG/ML VIAL SLOW IVP PRN (19:02)
[2020-11-13 19:39] VITALS: BMI 24.9
[2020-11-13] MEDS: Famotidine 20 MG TAB PO SCH (20:35)
[2020-11-13] MEDS: Promethazine HCl 25 MG/ML VIAL IM PRN (20:41)
[2020-11-14] MEDS ORDERED: hydrALAZINE 20 MG/ML VIAL SLOW IVP PRN (00:08)
[2020-11-14] MEDS ORDERED: Fentanyl 100 MCG/2 ML VIAL SLOW IVP SCH (00:15)
[2020-11-14] MEDS: Promethazine HCl 25 MG/ML VIAL IM PRN ×2 (00:50→06:39)
[2020-11-14] MEDS: Lactated Ringer's 1,000 ML IV SCH ×2 (01:56→04:41)
[2020-11-14 05:31] LABS: Anion Gap 14 mmol/L (10-20); BUN (Urea Nitrogen) 8 mg/dL (7.0-18.7); Calc. Creatinine Clearance 118 mL/min (70-130); Calcium 9.5 mg/dL (7.8-10.44); Carbon Dioxide 26 mmol/L (22-29); Chloride 97 mmol/L (98-107); Glucose 107 mg/dL (70-105); Potassium 3.1 mmol/L (3.5-5.1); Sodium 134 mmol/L (136-145)
[2020-11-14] MEDS ORDERED: Potassium Chloride 20 MEQ TAB PO SCH (06:30)
[2020-11-14] MEDS ORDERED: Labetalol HCl 100 MG/20 ML VIAL SLOW IVP SCH (07:54)
[2020-11-14] MEDS ORDERED: Metoclopramide HCl 10 MG TAB PO PRN (07:56)
[2020-11-14] MEDS ORDERED: Metoclopramide HCl 10 MG/2 ML VIAL IVP SCH (08:00)
[2020-11-14] MEDS ORDERED: SUMAtriptan Succinate 6 MG/0.5 ML VIAL SC PRN (08:25)
[2020-11-14] MEDS ORDERED: FLUoxetine HCl 20 MG CAP PO SCH (09:00)
[2020-11-14] MEDS ORDERED: Dicyclomine 10 MG CAP PO SCH (09:00)
[2020-11-14] MEDS: Famotidine 20 MG TAB PO SCH (09:31)
[2020-11-14 11:09] LABS: SARS-CoV-2 PCR by NAA Not Detected (NotDetected)
[2020-11-14 12:52] VITALS: BP 175/117; TEMP 98.3
== END 2020-11-14 13:20 | disposition home or self-care (01) ==
LOC: ERS 10:40 → ERHOLD 15:59 → 2SW 18:31
PROVIDERS: ADMIT Student in an Organized Health Care Education/Training Program; ATTEND Student in an Organized Health Care Education/Training Program
DX: R11.2 Nausea with vomiting, unspecified (principal); R07.9 Chest pain, unspecified; R00.0 Tachycardia, unspecified; G43.809 Other migraine, not intractable, without status migrainosus; I95.1 Orthostatic hypotension; I10 Essential (primary) hypertension; Q79.60 Ehlers-Danlos syndrome, unspecified; F17.210 Nicotine dependence, cigarettes, uncomplicated; M43.06 Spondylolysis, lumbar region; Z79.899 Other long term (current) drug therapy; Z88.8 Allergy status to other drugs, medicaments and biological substances; Z20.822 Contact with and (suspected) exposure to COVID-19
CPT/HCPCS: 36415; 71275; 74174; 80048; 80053; 82550; 83880; 84484; 84703; 85025; 96375; 96376; G0378; J0360; J2270; J2550; J2765; J3010; Q9967; U0003; U0005

== ENCOUNTER 2020-11-27 13:36 | Emergency (ER) | payer OTHER ==
[2020-11-27] MEDS ORDERED: Lorazepam 2 MG/ML VIAL ONE (14:00)
[2020-11-27] MEDS ORDERED: Haloperidol Lactate 5 MG/ML VIAL ONE (14:10)
[2020-11-27] MEDS ORDERED: Acetaminophen 500 MG TAB ONE (15:37)
== END 2020-11-27 15:12 | disposition home or self-care (01) ==
LOC: ERS 13:36
DX: F41.0 Panic disorder [episodic paroxysmal anxiety] (principal); I10 Essential (primary) hypertension; G43.909 Migraine, unspecified, not intractable, without status migrainosus; F17.210 Nicotine dependence, cigarettes, uncomplicated
CPT/HCPCS: J1630; J2060

== ENCOUNTER 2020-11-28 12:26 | Inpatient (IN) | payer OTHER ==
[2020-11-28 13:46] LABS: #Basophils 0.1 thou/uL (0.0-0.2); #Eosinphils 0.1 thou/uL (0.0-0.7); #Lymphocytes 3.4 thou/uL (1.20-3.40); #Monocytes 0.7 thou/uL (0.11-0.59); #Neutrophils 8.4 thou/uL (1.40-6.50); %Basophils 0.8 % (0.0-1.0); %Eosinophils 0.5 % (0.0-10.0); %Monocytes 5.8 % (0.0-10.0); %Neutrophils 65.9 % (42.0-75.0); Hemoglobin 11.3 g/dL (12.0-16.0); Mean Corpuscular Hemoglobin 30.2 pg (27.0-31.0); Mean Corpuscular Volume 94.5 fL (78.0-98.0); Mean Platelet Volume 8.4 fL (7.4-10.4); Platelet Count 435 thou/uL (130-400); RBC Distribution Width 15.3 % (11.5-14.5); Red Blood Cell (RBC) Count 3.75 mill/uL (4.20-5.40); White Blood Cell (WBC) Count 12.7 thou/uL (4.8-10.8)
[2020-11-28] MEDS ORDERED: diphenhydrAMINE 50 MG/ML VIAL ONE (13:50)
[2020-11-28] MEDS ORDERED: Ketorolac Tromethamine 30 MG/ML VIAL ONE (13:50)
[2020-11-28 14:02] LABS: ALT (SGPT) 13 U/L (8-55); AST (SGOT) 21 U/L (5-34); Albumin 4.2 g/dL (3.5-5.0); Alkaline Phosphatase 75 U/L (40-110); Anion Gap 11 mmol/L (10-20); BUN (Urea Nitrogen) 10 mg/dL (7.0-18.7); Bilirubin, Total 0.2 mg/dL (0.2-1.2); CK (CPK) 213 U/L (29-168); Calc. Creatinine Clearance 0 mL/min (70-130); Calcium 9.3 mg/dL (7.8-10.44); Carbon Dioxide 28 mmol/L (22-29); Chloride 105 mmol/L (98-107); Globulin 3.3 g/dL (2.4-3.5); Glucose 95 mg/dL (70-105); Potassium 4.1 mmol/L (3.5-5.1); Protein, Total 7.5 g/dL (6.0-8.3); Sodium 140 mmol/L (136-145)
[2020-11-28 14:03] LABS: Acetaminophen Less than 6.0 mcg/mL (10.0-30.0); Alcohol Less than 10 mg/dL (Less than 10); Salicylate Less than 8.0 mg/dL (15.0-30.0)
[2020-11-28] MEDS ORDERED: Morphine 4 MG/ML VIAL ONE ×2 (14:28→22:07)
[2020-11-28] MEDS ORDERED: methylPREDNISolone Sod Succ/PF 125 MG/2 ML VIAL ONE (14:52)
[2020-11-28] MEDS ORDERED: Divalproex Sodium 250 MG (DR) TAB ONE (14:52)
[2020-11-28] MEDS ORDERED: Magnesium 2 GM/50 ML BAG (IN WATER) ONE (14:52)
[2020-11-28 15:19] LABS: BHCG - Serum Negative (NEGATIVE); Pregs Control Background? CLEAR/WHITE (CLR/WHITE); Pregs Control Bar Appear? YES (CONTROL BAR)
[2020-11-28] MEDS ORDERED: Lorazepam 2 MG/ML VIAL ONE (16:12)
[2020-11-28 17:15] LABS: Bilirubin Negative (Negative); Blood, Urine Negative (Negative); Clarity Clear (Clear); Glucose, Urine (Dipstick) Normal (Negative); Ketone, Urine Negative (Negative); Leukocyte Negative Leu/uL (Negative); Nitrite Negative (Negative); Protein, Urine (Dipstick) Negative (Neg-Trace); Specific Gravity, Urine 1.008 (1.002-1.036); Urobilinogen Normal mg/dL (Less than 2); pH, Urine 6.5 (5.0-9.0)
[2020-11-28] MEDS ORDERED: Ketamine 50 MG/ML (10ML VIAL) ONE (17:18)
[2020-11-28 17:26] LABS: Medtox Reader # READER 4
[2020-11-28 17:27] LABS: Amphetamine Not Detected (NotDetected); Barbiturates Screen Not Detected (NotDetected); Benzodiazepine Screen Detected (NotDetected); Cocaine Metabolite Screen Not Detected (NotDetected); Medtox Control Line Valid? VALID (VALID); Methadone Not Detected (NotDetected); Methamphetamine Not Detected (NotDetected); Opiate Screen Detected (NotDetected); Oxycodone Screen Not Detected (NotDetected); Phencyclidine (PCP) Not Detected (NotDetected); THC/Cannabinoid Screen Not Detected (NotDetected); Tricyclic Screen Not Detected (NotDetected)
[2020-11-28] MEDS ORDERED: Cyproheptadine 4 MG TAB PO SCH ×2 (20:30→21:45)
[2020-11-28] MEDS ORDERED: Promethazine 25 MG TAB PO PRN (20:58)
[2020-11-28] MEDS ORDERED: diphenhydrAMINE 50 MG CAP PO PRN (21:11)
[2020-11-28] MEDS ORDERED: Propranolol 10 MG TAB PO SCH ×2 (21:15→21:30)
[2020-11-28] MEDS ORDERED: Ketorolac Tromethamine 30 MG/ML VIAL IVP SCH (21:15)
[2020-11-28 21:23] LABS: Free T4 (Free Thyroxine) 1.12 ng/dL (0.70-1.48)
[2020-11-28] MEDS ORDERED: Propranolol 60 MG TAB PO SCH (21:45)
[2020-11-29] MEDS: Lactated Ringer's 1,000 ML IV SCH ×4 (00:01→20:25)
[2020-11-29] MEDS: Losartan 25 MG TAB PO SCH ×3 (00:02→20:33)
[2020-11-29] MEDS ORDERED: hydrOXYzine 25 MG TAB PO PRN (00:04)
[2020-11-29] MEDS ORDERED: diphenhydrAMINE 50 MG/ML VIAL IVP SCH (01:15)
[2020-11-29] MEDS ORDERED: methylPREDNISolone Sod Succ/PF 125 MG/2 ML VIAL IVP SCH (01:15)
[2020-11-29] MEDS ORDERED: Magnesium 2 GM/50 ML 2 GM in Premix Bag 1 BAG IVPB SCH (01:15)
[2020-11-29] MEDS ORDERED: Acetaminophen 500 MG TAB PO SCH (04:45)
[2020-11-29] MEDS: clonazePAM 1 MG TAB PO PRN ×2 (04:46→13:12)
[2020-11-29] MEDS ORDERED: Cyproheptadine HCl 2 MG/5 ML UDCUP PO SCH (05:00)
[2020-11-29] MEDS ORDERED: Valproate Sodium 500 MG in Sodium Chloride 0.9% 100 ML IVPB SCH (05:00)
[2020-11-29 05:13] LABS: #Lymphocytes 0.9 thou/uL (1.20-3.40); #Monocytes 0.1 thou/uL (0.11-0.59); #Neutrophils 8.9 thou/uL (1.40-6.50); %Basophils 0.3 % (0.0-1.0); %Eosinophils 0.1 % (0.0-10.0); %Monocytes 1.3 % (0.0-10.0); %Neutrophils 89.3 % (42.0-75.0); Mean Corpuscular Hemoglobin 31.9 pg (27.0-31.0); Mean Corpuscular Volume 93.9 fL (78.0-98.0); Mean Platelet Volume 8.7 fL (7.4-10.4); Platelet Count 378 thou/uL (130-400); RBC Distribution Width 15.4 % (11.5-14.5); Red Blood Cell (RBC) Count 3.44 mill/uL (4.20-5.40); White Blood Cell (WBC) Count 9.9 thou/uL (4.8-10.8)
[2020-11-29] MEDS: Cyproheptadine 4 MG TAB PO SCH ×9 (05:28→23:15)
[2020-11-29 05:39] LABS: ALT (SGPT) 13 U/L (8-55); AST (SGOT) 21 U/L (5-34); Albumin 3.6 g/dL (3.5-5.0); Alkaline Phosphatase 60 U/L (40-110); Anion Gap 18 mmol/L (10-20); BUN (Urea Nitrogen) 8 mg/dL (7.0-18.7); Bilirubin, Total 0.2 mg/dL (0.2-1.2); Calc. Creatinine Clearance 118 mL/min (70-130); Calcium 8.4 mg/dL (7.8-10.44); Carbon Dioxide 18 mmol/L (22-29); Chloride 107 mmol/L (98-107); Globulin 3.3 g/dL (2.4-3.5); Glucose 149 mg/dL (70-105); Potassium 4.7 mmol/L (3.5-5.1); Protein, Total 6.9 g/dL (6.0-8.3); Sodium 138 mmol/L (136-145)
[2020-11-29] MEDS: Acetaminophen 325 MG TAB PO PRN ×2 (08:45→13:12)
[2020-11-29] MEDS: Enoxaparin Sodium 40 MG/0.4 ML SYRINGE SC SCH (08:46)
[2020-11-29 10:08] LABS: Digoxin Less than 0.15 ng/mL (0.8-2.0)
[2020-11-29] MEDS ORDERED: Ketorolac Tromethamine 30 MG/ML VIAL IVP SCH (10:45)
[2020-11-29] MEDS: Promethazine HCl 25 MG in Sodium Chloride 0.9% 50 ML IVPB PRN ×2 (16:49→23:07)
[2020-11-29 17:10] LABS: SARS-CoV-2 PCR by NAA Not Detected (NotDetected)
[2020-11-29] MEDS: Fioricet 325/50/40 mg Tablet PO PRN ×2 (17:26→23:14)
[2020-11-29] MEDS: Morphine 2 MG/ML VIAL SLOW IVP PRN (17:54)
[2020-11-29] MEDS: Lorazepam 2 MG/ML VIAL SLOW IVP PRN (20:14)
[2020-11-29] MEDS ORDERED: Morphine 2 MG/ML VIAL SLOW IVP SCH (20:45)
[2020-11-29] MEDS: Metoclopramide HCl 10 MG/2 ML VIAL IVP SCH (20:47)
[2020-11-29] MEDS: Zolpidem Tartrate 5 MG TAB PO SCH (23:06)
[2020-11-29] MEDS: Labetalol HCl 100 MG/20 ML VIAL SLOW IVP PRN (23:50)
[2020-11-30] MEDS: Cyproheptadine 4 MG TAB PO SCH ×12 (00:26→23:29)
[2020-11-30] MEDS: Morphine 2 MG/ML VIAL SLOW IVP PRN ×4 (03:38→21:43)
[2020-11-30] MEDS: Promethazine HCl 25 MG in Sodium Chloride 0.9% 50 ML IVPB PRN ×2 (03:38→15:28)
[2020-11-30] MEDS: Labetalol HCl 100 MG/20 ML VIAL SLOW IVP PRN ×2 (03:39→16:24)
[2020-11-30] MEDS: Lorazepam 2 MG/ML VIAL SLOW IVP PRN ×4 (03:39→21:41)
[2020-11-30] MEDS: Lactated Ringer's 1,000 ML IV SCH ×3 (04:13→21:51)
[2020-11-30] MEDS: Metoclopramide HCl 10 MG/2 ML VIAL IVP SCH ×3 (06:36→21:40)
[2020-11-30] MEDS ORDERED: FLUoxetine HCl 20 MG CAP PO SCH (10:00)
[2020-11-30] MEDS: Losartan 25 MG TAB PO SCH ×2 (10:09→21:38)
[2020-11-30] MEDS: Digoxin 0.25 MG TAB PO SCH (10:09)
[2020-11-30] MEDS: Enoxaparin Sodium 40 MG/0.4 ML SYRINGE SC SCH (10:09)
[2020-11-30] MEDS: Ondansetron PF 4 MG/2 ML Vial IVP SCH ×2 (10:09→18:07)
[2020-11-30] MEDS: Zolpidem Tartrate 5 MG TAB PO SCH (21:38)
[2020-12-01] MEDS: Fioricet 325/50/40 mg Tablet PO PRN ×3 (00:15→21:32)
[2020-12-01] MEDS: Ondansetron PF 4 MG/2 ML Vial IVP SCH ×3 (01:13→17:51)
[2020-12-01] MEDS: Cyproheptadine 4 MG TAB PO SCH ×5 (01:18→08:30)
[2020-12-01] MEDS: Promethazine HCl 25 MG in Sodium Chloride 0.9% 50 ML IVPB PRN ×2 (01:58→15:01)
[2020-12-01] MEDS: Lorazepam 2 MG/ML VIAL SLOW IVP PRN ×2 (01:58→09:35)
[2020-12-01] MEDS: Morphine 2 MG/ML VIAL SLOW IVP PRN ×4 (01:58→17:51)
[2020-12-01] MEDS: Lactated Ringer's 1,000 ML IV SCH ×3 (05:48→21:36)
[2020-12-01] MEDS: Metoclopramide HCl 10 MG/2 ML VIAL IVP SCH ×3 (05:48→21:34)
[2020-12-01] MEDS: Labetalol HCl 100 MG/20 ML VIAL SLOW IVP PRN (06:51)
[2020-12-01] MEDS: Enoxaparin Sodium 40 MG/0.4 ML SYRINGE SC SCH (08:28)
[2020-12-01] MEDS: Digoxin 0.25 MG TAB PO SCH (08:29)
[2020-12-01] MEDS: FLUoxetine HCl 20 MG CAP PO SCH (08:32)
[2020-12-01] MEDS: Losartan 25 MG TAB PO SCH ×2 (08:32→19:54)
[2020-12-01] MEDS ORDERED: Atenolol 25 MG TAB PO SCH (10:45)
[2020-12-01] MEDS ORDERED: SUMAtriptan Succinate 6 MG/0.5 ML VIAL SC PRN (10:45)
[2020-12-01] MEDS ORDERED: SUMAtriptan Succinate 6 MG/0.5 ML VIAL SC SCH ×2 (11:00→11:48)
[2020-12-01] MEDS ORDERED: Lorazepam 2 MG/ML VIAL SLOW IVP SCH (15:30)
[2020-12-01] MEDS: Zolpidem Tartrate 5 MG TAB PO SCH (19:54)
[2020-12-01] MEDS: Atenolol 25 MG TAB PO SCH (19:54)
[2020-12-02] MEDS: Ondansetron PF 4 MG/2 ML Vial IVP SCH ×2 (02:04→11:31)
[2020-12-02] MEDS: Metoclopramide HCl 10 MG/2 ML VIAL IVP SCH (05:32)
[2020-12-02] MEDS: Lactated Ringer's 1,000 ML IV SCH (05:32)
[2020-12-02] MEDS: Fioricet 325/50/40 mg Tablet PO PRN (05:37)
[2020-12-02] MEDS: clonazePAM 1 MG TAB PO PRN (06:38)
[2020-12-02] MEDS: Promethazine HCl 25 MG in Sodium Chloride 0.9% 50 ML IVPB PRN (09:08)
[2020-12-02] MEDS: FLUoxetine HCl 20 MG CAP PO SCH (09:09)
[2020-12-02] MEDS: Atenolol 25 MG TAB PO SCH (09:09)
[2020-12-02] MEDS: Digoxin 0.25 MG TAB PO SCH (09:09)
[2020-12-02] MEDS: Losartan 25 MG TAB PO SCH (09:09)
[2020-12-02] MEDS: Enoxaparin Sodium 40 MG/0.4 ML SYRINGE SC SCH (09:10)
[2020-12-02 12:07] VITALS: BP 132/83; TEMP 98.3
[2020-12-04 12:12] LABS: Dopamine 24H Ur 82 ug/24 hr (0-510); Dopamine,Ur 27 ug/L (Undefined); Epinephrine 24H Ur 9 ug/24 hr (0-20); Epinephrine,Ur 3 ug/L (Undefined); Norephinephrine 24H U 136 ug/24 hr (0-135); Norephinephrine,Ur 45 ug/L (Undefined)
[2020-12-04 17:13] LABS: Metanephrine,Ur 97 ug/L (Undefined); Metanephrines Total-24H 293 ug/24 hr (36-209); Normetanephrine,Ur 389 ug/L (Undefined); Normetanephrines-24H U 1177 ug/24 hr (131-612)
== END 2020-12-02 12:25 | disposition home or self-care (01) | DRG 57 ==
LOC: ERS 12:26 → OBSVTOIN 18:50 → 2SW 18:50 → INTOOBSV 18:50 → OBSVTOIN 11-30 21:06
PROVIDERS: ADMIT Student in an Organized Health Care Education/Training Program; ATTEND Student in an Organized Health Care Education/Training Program
DX: G25.79 Other drug induced movement disorders (principal); Q79.60 Ehlers-Danlos syndrome, unspecified; F43.10 Post-traumatic stress disorder, unspecified; G89.4 Chronic pain syndrome; I73.00 Raynaud's syndrome without gangrene; F90.9 Attention-deficit hyperactivity disorder, unspecified type; F31.9 Bipolar disorder, unspecified; G43.919 Migraine, unspecified, intractable, without status migrainosus; G47.00 Insomnia, unspecified; I35.1 Nonrheumatic aortic (valve) insufficiency; D72.0 Genetic anomalies of leukocytes; E05.80 Other thyrotoxicosis without thyrotoxic crisis or storm; F41.9 Anxiety disorder, unspecified; D72.829 Elevated white blood cell count, unspecified; F17.210 Nicotine dependence, cigarettes, uncomplicated; Z20.822 Contact with and (suspected) exposure to COVID-19; R03.0 Elevated blood-pressure reading, without diagnosis of hypertension; G47.33 Obstructive sleep apnea (adult) (pediatric); Z79.899 Other long term (current) drug therapy; Z90.89 Acquired absence of other organs; Z98.890 Other specified postprocedural states; Z88.8 Allergy status to other drugs, medicaments and biological substances
CPT/HCPCS: 36415; 80053; 80162; 80306; 80307; 81003; 82384; 82550; 83835; 84145; 84439; 84443; 84481; 84703; 85025; 93005; 96365; 96366; 96367; 96372; 96375; 96376; 99283; G0378; J1200; J1630; J1650; J1885; J2060; J2270; J2405; J2550; J2765; J2930; J3030; J3475; J3490; Q0169; U0003; U0005

== ENCOUNTER 2020-12-12 11:41 | Emergency (ER) | payer OTHER ==
[2020-12-12 12:41] LABS: #Basophils 0.1 thou/uL (0.0-0.2); #Eosinphils 0.3 thou/uL (0.0-0.7); #Lymphocytes 2.1 thou/uL (1.20-3.40); #Monocytes 0.9 thou/uL (0.11-0.59); #Neutrophils 8.5 thou/uL (1.40-6.50); %Basophils 0.5 % (0.0-1.0); %Eosinophils 2.7 % (0.0-10.0); %Lymphocytes 17.7 % (21.0-51.0); %Monocytes 7.3 % (0.0-10.0); %Neutrophils 71.9 % (42.0-75.0); Hemoglobin 12.1 g/dL (12.0-16.0); Mean Corpuscular HGB CONC 31.9 g/dL (32.0-36.0); Mean Corpuscular Hemoglobin 30.1 pg (27.0-31.0); Mean Corpuscular Volume 94.3 fL (78.0-98.0); Mean Platelet Volume 8.2 fL (7.4-10.4); Platelet Count 387 thou/uL (130-400); RBC Distribution Width 15.2 % (11.5-14.5); Red Blood Cell (RBC) Count 4.01 mill/uL (4.20-5.40); White Blood Cell (WBC) Count 11.8 thou/uL (4.8-10.8)
[2020-12-12] MEDS ORDERED: Ketorolac Tromethamine 30 MG/ML VIAL ONE (12:46)
[2020-12-12] MEDS ORDERED: diphenhydrAMINE 50 MG/ML VIAL ONE (12:46)
[2020-12-12] MEDS ORDERED: Metoclopramide HCl 10 MG/2 ML VIAL ONE (12:46)
[2020-12-12 13:02] LABS: ALT (SGPT) 30 U/L (8-55); AST (SGOT) 22 U/L (5-34); Albumin 4.3 g/dL (3.5-5.0); Alkaline Phosphatase 89 U/L (40-110); Anion Gap 15 mmol/L (10-20); BUN (Urea Nitrogen) 10 mg/dL (7.0-18.7); Bilirubin, Total 0.3 mg/dL (0.2-1.2); Calc. Creatinine Clearance 0 mL/min (70-130); Calcium 9.6 mg/dL (7.8-10.44); Carbon Dioxide 27 mmol/L (22-29); Chloride 105 mmol/L (98-107); Globulin 3.1 g/dL (2.4-3.5); Glucose 104 mg/dL (70-105); Potassium 4.7 mmol/L (3.5-5.1); Protein, Total 7.4 g/dL (6.0-8.3); Sodium 142 mmol/L (136-145)
[2020-12-12] MEDS ORDERED: Magnesium 2 GM/50 ML BAG (IN WATER) ONE (13:47)
== END 2020-12-12 17:00 | disposition home or self-care (01) ==
LOC: ERS 11:41
DX: G43.909 Migraine, unspecified, not intractable, without status migrainosus (principal); R20.0 Anesthesia of skin; R53.1 Weakness; I10 Essential (primary) hypertension; F17.210 Nicotine dependence, cigarettes, uncomplicated
CPT/HCPCS: 36415; 80053; 85025; 93005; 96365; 96367; 96375; J1200; J1885; J2765; J3475

== ENCOUNTER 2020-12-20 19:03 | Inpatient (IN) | payer OTHER ==
[2020-12-20 19:50] LABS: #Basophils 0.1 thou/uL (0.0-0.2); #Eosinphils 0.2 thou/uL (0.0-0.7); #Lymphocytes 3.1 thou/uL (1.20-3.40); #Monocytes 0.6 thou/uL (0.11-0.59); #Neutrophils 3.6 thou/uL (1.40-6.50); %Basophils 1.2 % (0.0-1.0); %Eosinophils 2.2 % (0.0-10.0); %Lymphocytes 40.7 % (21.0-51.0); %Monocytes 7.5 % (0.0-10.0); %Neutrophils 48.4 % (42.0-75.0); Mean Corpuscular HGB CONC 33.1 g/dL (32.0-36.0); Mean Corpuscular Hemoglobin 31.1 pg (27.0-31.0); Mean Corpuscular Volume 93.9 fL (78.0-98.0); Mean Platelet Volume 8.2 fL (7.4-10.4); Platelet Count 350 thou/uL (130-400); RBC Distribution Width 15.5 % (11.5-14.5); Red Blood Cell (RBC) Count 3.22 mill/uL (4.20-5.40); White Blood Cell (WBC) Count 7.5 thou/uL (4.8-10.8)
[2020-12-20 20:14] LABS: ALT (SGPT) 19 U/L (8-55); AST (SGOT) 25 U/L (5-34); Albumin 3.4 g/dL (3.5-5.0); Alcohol Less than 10 mg/dL (Less than 10); Alkaline Phosphatase 63 U/L (40-110); Anion Gap 12 mmol/L (10-20); BUN (Urea Nitrogen) 10 mg/dL (7.0-18.7); Bilirubin, Total 0.3 mg/dL (0.2-1.2); Calc. Creatinine Clearance 0 mL/min (70-130); Calcium 8.2 mg/dL (7.8-10.44); Carbon Dioxide 30 mmol/L (22-29); Chloride 100 mmol/L (98-107); Globulin 2.7 g/dL (2.4-3.5); Glucose 85 mg/dL (70-105); Potassium 3.7 mmol/L (3.5-5.1); Protein, Total 6.1 g/dL (6.0-8.3); Sodium 138 mmol/L (136-145)
[2020-12-20] MEDS ORDERED: SUMAtriptan Succinate 6 MG/0.5 ML VIAL SC PRN (22:03)
[2020-12-20] MEDS ORDERED: Fioricet 325/50/40 mg Tablet PO PRN (22:08)
[2020-12-20] MEDS ORDERED: Ketorolac Tromethamine 60 MG/2 ML VIAL IM SCH (22:15)
[2020-12-20] MEDS ORDERED: Metoclopramide HCl 10 MG/2 ML VIAL IVP SCH (22:15)
[2020-12-20] MEDS ORDERED: hydrOXYzine 25 MG TAB PO PRN (22:24)
[2020-12-20] MEDS ORDERED: diphenhydrAMINE 50 MG CAP PO PRN (22:24)
[2020-12-20] MEDS ORDERED: SUMAtriptan Succinate 6 MG/0.5 ML VIAL SC SCH (23:15)
[2020-12-20 23:44] VITALS: BMI 22.2
[2020-12-20] MEDS ORDERED: Ketorolac Tromethamine 30 MG/ML VIAL IM SCH (23:45)
[2020-12-21] MEDS ORDERED: Metoclopramide HCl 10 MG/2 ML VIAL IVP SCH (06:00)
[2020-12-21] MEDS: Digoxin 0.25 MG TAB PO SCH (08:34)
[2020-12-21] MEDS: Losartan 25 MG TAB PO SCH ×2 (08:39→20:45)
[2020-12-21] MEDS ORDERED: Prevnar 13-Val Conj/PF 0.5 ML SYRINGE IM ONE (09:00)
[2020-12-21] MEDS ORDERED: Atenolol 25 MG TAB PO SCH (09:00)
[2020-12-21] MEDS: FLUoxetine HCl 20 MG CAP PO SCH (09:28)
[2020-12-21] MEDS: Midodrine HCl 5 MG TAB PO SCH ×3 (09:28→20:44)
[2020-12-21] MEDS: Naproxen 500 MG TAB PO SCH ×2 (09:28→21:27)
[2020-12-21] MEDS: clonazePAM 1 MG TAB PO PRN ×2 (09:29→20:52)
[2020-12-21] MEDS ORDERED: OLANZapine 10 MG VIAL IM PRN ×2 (10:40→10:49)
[2020-12-21] MEDS ORDERED: Sterile Water 10 ML VIAL FS PRN (11:00)
[2020-12-21] MEDS: Sodium Chloride 0.9% 1,000 ML IV SCH ×2 (11:31→15:11)
[2020-12-21] MEDS: Acetaminophen 325 MG TAB PO PRN ×2 (12:05→23:00)
[2020-12-21] MEDS: Diclofenac 1% 100 GM GEL TP SCH ×3 (15:10→20:48)
[2020-12-21] MEDS: Fioricet 325/50/40 mg Tablet PO PRN ×2 (15:20→20:47)
[2020-12-21 16:19] LABS: SARS-CoV-2 PCR by NAA Not Detected (NotDetected)
[2020-12-21] MEDS: SUMAtriptan Succinate 50 MG TAB PO PRN (17:34)
[2020-12-21] MEDS: Zolpidem Tartrate 5 MG TAB PO SCH (20:45)
[2020-12-22] MEDS: Sodium Chloride 0.9% 1,000 ML IV SCH ×2 (00:57→15:27)
[2020-12-22] MEDS: Fioricet 325/50/40 mg Tablet PO PRN ×3 (02:24→20:41)
[2020-12-22] MEDS: Lidocaine 5% Patch TD SCH (04:11)
[2020-12-22] MEDS ORDERED: Lidocaine 5% Patch TD SCH (09:00)
[2020-12-22] MEDS: Midodrine HCl 5 MG TAB PO SCH ×2 (14:49→20:41)
[2020-12-22] MEDS: Digoxin 0.25 MG TAB PO SCH (14:49)
[2020-12-22] MEDS: Diclofenac 1% 100 GM GEL TP SCH ×4 (14:50→21:14)
[2020-12-22] MEDS: Losartan 25 MG TAB PO SCH ×2 (14:50→20:40)
[2020-12-22] MEDS: Naproxen 500 MG TAB PO SCH ×2 (14:51→20:39)
[2020-12-22] MEDS: FLUoxetine HCl 20 MG CAP PO SCH (14:53)
[2020-12-22 15:59] LABS: Magnesium 1.9 mg/dL (1.6-2.6)
[2020-12-22] MEDS: Transdermal Patch Removal TOP SCH (16:06)
[2020-12-22] MEDS ORDERED: Ketorolac Tromethamine 30 MG/ML VIAL IVP SCH (16:15)
[2020-12-22] MEDS ORDERED: FLUoxetine HCl 10 MG CAP PO SCH (16:15)
[2020-12-22] MEDS: clonazePAM 1 MG TAB PO PRN (16:37)
[2020-12-22] MEDS: SUMAtriptan Succinate 50 MG TAB PO PRN (18:38)
[2020-12-22] MEDS: Zolpidem Tartrate 5 MG TAB PO SCH (20:40)
[2020-12-22] MEDS ORDERED: Transdermal Patch Removal TOP SCH (21:00)
[2020-12-22] MEDS: Acetaminophen 325 MG TAB PO PRN (21:14)
[2020-12-22] MEDS ORDERED: Lorazepam 0.5 MG TAB PO SCH (21:30)
[2020-12-22] MEDS ORDERED: Melatonin 3 MG TAB PO PRN (23:47)
[2020-12-23] MEDS: clonazePAM 1 MG TAB PO PRN ×2 (00:14→08:39)
[2020-12-23] MEDS: Sodium Chloride 0.9% 1,000 ML IV SCH ×2 (01:54→12:17)
[2020-12-23] MEDS ORDERED: hydrALAZINE 20 MG/ML VIAL SLOW IVP SCH (04:45)
[2020-12-23] MEDS: Lidocaine 5% Patch TD SCH (05:24)
[2020-12-23] MEDS ORDERED: Acetaminophen 325 MG TAB PO PRN (06:47)
[2020-12-23] MEDS: Digoxin 0.25 MG TAB PO SCH (08:16)
[2020-12-23] MEDS: Losartan 25 MG TAB PO SCH (08:17)
[2020-12-23] MEDS: Naproxen 500 MG TAB PO SCH (08:18)
[2020-12-23] MEDS: Diclofenac 1% 100 GM GEL TP SCH ×2 (08:30→14:18)
[2020-12-23] MEDS: Midodrine HCl 5 MG TAB PO SCH ×2 (08:30→14:18)
[2020-12-23] MEDS: Fioricet 325/50/40 mg Tablet PO PRN (08:39)
[2020-12-23] MEDS ORDERED: DULoxetine 30 MG CAP PO SCH (09:00)
[2020-12-23] MEDS ORDERED: FLUoxetine HCl 10 MG CAP PO SCH (09:00)
[2020-12-23] MEDS ORDERED: OLANZapine 5 MG TAB PO SCH (09:00)
[2020-12-23 10:00] VITALS: TEMP 98.8
[2020-12-23] MEDS ORDERED: Ondansetron ODT 4 MG TAB PO SCH (12:45)
[2020-12-23] MEDS ORDERED: Scopolamine 1.5 mg/72 hour Patch TD SCH (13:00)
[2020-12-23] MEDS ORDERED: Ondansetron ODT 8 MG TAB SL SCH (13:30)
[2020-12-23 14:28] VITALS: BP 175/110
[2020-12-23] MEDS ORDERED: Lorazepam 0.5 MG TAB PO SCH ×2 (15:45→16:15)
[2020-12-23] MEDS: Transdermal Patch Removal TOP SCH (16:30)
[2020-12-23] MEDS ORDERED: Melatonin 3 MG TAB PO SCH (21:00)
== END 2020-12-23 17:09 | disposition home or self-care (01) | DRG 312 ==
LOC: ERS 19:03 → 2NO 21:55 → OBSVTOIN 12-22 14:16
PROVIDERS: ADMIT Family Medicine; ATTEND Family Medicine
DX: I95.1 Orthostatic hypotension (principal); Q79.60 Ehlers-Danlos syndrome, unspecified; R00.1 Bradycardia, unspecified; I45.81 Long QT syndrome; I08.0 Rheumatic disorders of both mitral and aortic valves; Z20.822 Contact with and (suspected) exposure to COVID-19; G43.409 Hemiplegic migraine, not intractable, without status migrainosus; F43.10 Post-traumatic stress disorder, unspecified; F31.9 Bipolar disorder, unspecified; F90.9 Attention-deficit hyperactivity disorder, unspecified type; G47.00 Insomnia, unspecified; K31.84 Gastroparesis; D64.9 Anemia, unspecified; Z90.89 Acquired absence of other organs; Z82.49 Family history of ischemic heart disease and other diseases of the circulatory system; Z87.891 Personal history of nicotine dependence; Z91.81 History of falling; Z79.891 Long term (current) use of opiate analgesic; Z79.899 Other long term (current) drug therapy; G43.919 Migraine, unspecified, intractable, without status migrainosus
CPT/HCPCS: 36415; 70450; 71045; 72125; 78264; 80053; 80307; 83735; 84484; 85025; 93005; 93010; 96372; A9541; G0378; J0360; J1885; J2358; J3030; Q0162; U0003; U0005

== ENCOUNTER 2021-01-16 17:12 | Observation (INO) | payer OTHER ==
[2021-01-16 17:55] LABS: #Basophils 0.1 thou/uL (0.0-0.2); #Eosinphils 0.2 thou/uL (0.0-0.7); #Monocytes 0.8 thou/uL (0.11-0.59); %Basophils 0.9 % (0.0-1.0); %Eosinophils 2.2 % (0.0-10.0); %Monocytes 7.2 % (0.0-10.0); %Neutrophils 53.8 % (42.0-75.0); Mean Corpuscular HGB CONC 32.9 g/dL (32.0-36.0); Mean Corpuscular Hemoglobin 30.6 pg (27.0-31.0); Mean Corpuscular Volume 92.9 fL (78.0-98.0); Mean Platelet Volume 9.3 fL (7.4-10.4); Platelet Count 358 thou/uL (130-400); RBC Distribution Width 15.4 % (11.5-14.5); Red Blood Cell (RBC) Count 3.59 mill/uL (4.20-5.40); White Blood Cell (WBC) Count 11.2 thou/uL (4.8-10.8)
[2021-01-16 18:02] LABS: BHCG - Serum Negative (NEGATIVE); Pregs Control Background? CLEAR/WHITE (CLR/WHITE); Pregs Control Bar Appear? YES (CONTROL BAR)
[2021-01-16 18:20] LABS: ALT (SGPT) 16 U/L (8-55); AST (SGOT) 32 U/L (5-34); Alkaline Phosphatase 67 U/L (40-110); Anion Gap 16 mmol/L (10-20); BUN (Urea Nitrogen) 10 mg/dL (7.0-18.7); Bilirubin, Total 0.3 mg/dL (0.2-1.2); Calc. Creatinine Clearance 0 mL/min (70-130); Calcium 9.6 mg/dL (7.8-10.44); Carbon Dioxide 24 mmol/L (22-29); Chloride 100 mmol/L (98-107); Glucose 81 mg/dL (70-105); Potassium 4.8 mmol/L (3.5-5.1); Sodium 135 mmol/L (136-145)
[2021-01-16] MEDS ORDERED: Acetaminophen 325 MG TAB PO PRN ×3 (19:56→20:59)
[2021-01-16] MEDS ORDERED: Ondansetron ODT 4 MG TAB PO PRN ×2 (19:56→20:59)
[2021-01-16] MEDS ORDERED: Meloxicam 7.5 MG TAB PO PRN ×2 (20:10→20:59)
[2021-01-16] MEDS ORDERED: tiZANidine HCl 4 MG TAB PO PRN ×2 (20:10→20:59)
[2021-01-16] MEDS ORDERED: diphenhydrAMINE 25 MG CAP PO PRN (20:10)
[2021-01-16] MEDS ORDERED: Promethazine 25 MG TAB PO PRN (20:10)
[2021-01-16] MEDS ORDERED: Lidocaine 5% Patch TD SCH (20:15)
[2021-01-16 20:55] LABS: Troponin I Less than 0.010 ng/mL (< 0.028)
[2021-01-16] MEDS ORDERED: Melatonin 3 MG TAB PO SCH (21:00)
[2021-01-16 22:44] VITALS: BMI 23.7
[2021-01-16] MEDS: Lactated Ringer's 1,000 ML IV SCH (22:56)
[2021-01-16] MEDS: Dicyclomine 20 MG TAB PO SCH (23:10)
[2021-01-16] MEDS: FLUoxetine HCl 20 MG CAP PO SCH (23:10)
[2021-01-16] MEDS: Fioricet 325/50/40 mg Tablet PO PRN (23:11)
[2021-01-16] MEDS: Diclofenac 1% 100 GM GEL TP SCH (23:21)
[2021-01-17 04:41] LABS: #Basophils 0.1 thou/uL (0.0-0.2); #Eosinphils 0.3 thou/uL (0.0-0.7); #Lymphocytes 3.4 thou/uL (1.20-3.40); #Monocytes 0.6 thou/uL (0.11-0.59); #Neutrophils 3.3 thou/uL (1.40-6.50); %Eosinophils 3.6 % (0.0-10.0); %Lymphocytes 44.3 % (21.0-51.0); %Monocytes 7.9 % (0.0-10.0); %Neutrophils 43.3 % (42.0-75.0); Hemoglobin 9.5 g/dL (12.0-16.0); Mean Corpuscular HGB CONC 32.7 g/dL (32.0-36.0); Mean Corpuscular Hemoglobin 30.4 pg (27.0-31.0); Mean Corpuscular Volume 92.9 fL (78.0-98.0); Mean Platelet Volume 8.7 fL (7.4-10.4); Platelet Count 277 thou/uL (130-400); RBC Distribution Width 15.4 % (11.5-14.5); Red Blood Cell (RBC) Count 3.11 mill/uL (4.20-5.40); White Blood Cell (WBC) Count 7.7 thou/uL (4.8-10.8)
[2021-01-17 05:19] LABS: ALT (SGPT) 10 U/L (8-55); AST (SGOT) 16 U/L (5-34); Albumin 3.1 g/dL (3.5-5.0); Alkaline Phosphatase 54 U/L (40-110); Anion Gap 11 mmol/L (10-20); BUN (Urea Nitrogen) 11 mg/dL (7.0-18.7); Bilirubin, Total 0.2 mg/dL (0.2-1.2); Calc. Creatinine Clearance 80 mL/min (70-130); Calcium 8.4 mg/dL (7.8-10.44); Carbon Dioxide 23 mmol/L (22-29); Chloride 105 mmol/L (98-107); Globulin 2.7 g/dL (2.4-3.5); Glucose 96 mg/dL (70-105); Potassium 3.8 mmol/L (3.5-5.1); Protein, Total 5.8 g/dL (6.0-8.3); Sodium 135 mmol/L (136-145)
[2021-01-17] MEDS: Lactated Ringer's 1,000 ML IV SCH ×2 (05:56→08:40)
[2021-01-17] MEDS: FLUoxetine HCl 20 MG CAP PO SCH (08:30)
[2021-01-17] MEDS: Dicyclomine 20 MG TAB PO SCH (08:34)
[2021-01-17] MEDS: Diclofenac 1% 100 GM GEL TP SCH ×2 (08:40→14:07)
[2021-01-17] MEDS ORDERED: Lidocaine 5% Patch TD SCH (09:00)
[2021-01-17] MEDS ORDERED: Sodium Chloride 1 GM TAB PO SCH (09:00)
[2021-01-17] MEDS ORDERED: OLANZapine 5 MG TAB PO SCH (09:00)
[2021-01-17] MEDS ORDERED: Heparin 5,000 UNITS/ML VIAL SC SCH (09:00)
[2021-01-17] MEDS ORDERED: Fludrocortisone Acetate 0.1 MG TAB PO SCH (09:00)
[2021-01-17 11:44] VITALS: BP 109/65; TEMP 96.5
[2021-01-17] MEDS: Fioricet 325/50/40 mg Tablet PO PRN (11:45)
[2021-01-17] MEDS ORDERED: Transdermal Patch Removal TOP SCH (21:00)
== END 2021-01-17 14:02 | disposition home or self-care (01) ==
LOC: ERS 17:12 → 2NO 20:13
PROVIDERS: ADMIT Family Medicine; ATTEND Family Medicine
DX: I95.9 Hypotension, unspecified (principal); N17.9 Acute kidney failure, unspecified; G89.29 Other chronic pain; D64.9 Anemia, unspecified; D72.829 Elevated white blood cell count, unspecified; F31.9 Bipolar disorder, unspecified; F41.9 Anxiety disorder, unspecified; F43.10 Post-traumatic stress disorder, unspecified; Q79.60 Ehlers-Danlos syndrome, unspecified; F45.9 Somatoform disorder, unspecified; I08.0 Rheumatic disorders of both mitral and aortic valves; F90.9 Attention-deficit hyperactivity disorder, unspecified type; G43.409 Hemiplegic migraine, not intractable, without status migrainosus; G47.00 Insomnia, unspecified; Z91.14 Patient's other noncompliance with medication regimen; Z91.81 History of falling; Z76.5 Malingerer [conscious simulation]; Z88.8 Allergy status to other drugs, medicaments and biological substances; Z79.1 Long term (current) use of non-steroidal anti-inflammatories (NSAID); Z79.52 Long term (current) use of systemic steroids; Z79.890 Hormone replacement therapy; Z79.899 Other long term (current) drug therapy
CPT/HCPCS: 36415; 70450; 80053; 83605; 84484; 84703; 85025; 93005; G0378; J1644; J7120

== ENCOUNTER 2021-01-27 10:49 | Emergency (ER) | payer OTHER ==
[2021-01-27 12:06] LABS: #Monocytes 0.3 thou/uL (0.11-0.59); #Neutrophils 4.7 thou/uL (1.40-6.50); %Basophils 0.2 % (0.0-1.0); %Eosinophils 0.2 % (0.0-10.0); %Lymphocytes 16.4 % (21.0-51.0); %Monocytes 4.2 % (0.0-10.0); Hemoglobin 13.2 g/dL (12.0-16.0); Mean Corpuscular HGB CONC 33.2 g/dL (32.0-36.0); Mean Corpuscular Hemoglobin 30.3 pg (27.0-31.0); Mean Corpuscular Volume 91.3 fL (78.0-98.0); Mean Platelet Volume 9.6 fL (7.4-10.4); Platelet Count 268 thou/uL (130-400); RBC Distribution Width 15.2 % (11.5-14.5); Red Blood Cell (RBC) Count 4.35 mill/uL (4.20-5.40); White Blood Cell (WBC) Count 5.9 thou/uL (4.8-10.8)
[2021-01-27 12:35] LABS: Acetaminophen Less than 6.0 mcg/mL (10.0-30.0); Alcohol Less than 10 mg/dL (Less than 10); Salicylate Less than 8.0 mg/dL (15.0-30.0)
[2021-01-27 12:39] LABS: ALT (SGPT) 43 U/L (8-55); AST (SGOT) 55 U/L (5-34); Albumin 4.1 g/dL (3.5-5.0); Alkaline Phosphatase 85 U/L (40-110); Anion Gap 18 mmol/L (10-20); BUN (Urea Nitrogen) 9 mg/dL (7.0-18.7); Bilirubin, Total Less than 0.2 mg/dL (0.2-1.2); Calc. Creatinine Clearance 0 mL/min (70-130); Calcium 9.2 mg/dL (7.8-10.44); Carbon Dioxide 15 mmol/L (22-29); Chloride 107 mmol/L (98-107); Globulin 3.7 g/dL (2.4-3.5); Glucose 184 mg/dL (70-105); Potassium 4.2 mmol/L (3.5-5.1); Protein, Total 7.8 g/dL (6.0-8.3); Sodium 136 mmol/L (136-145)
[2021-01-27 12:58] LABS: Bacteria/HPF 2+ HPF (None Seen); Bilirubin Negative (Negative); Blood, Urine 2+ (Negative); Clarity Turbid (Clear); Glucose, Urine (Dipstick) 50 mg/dL (Negative); Ketone, Urine 40 mg/dL (Negative); Leukocyte Negative Leu/uL (Negative); Nitrite Negative (Negative); Protein, Urine (Dipstick) 100 mg/dL (Neg-Trace); Specific Gravity, Urine 1.019 (1.002-1.036); Squamous Epithelial 0-3 HPF (0-3); Urobilinogen Normal mg/dL (Less than 2); WBC/HPF 0-3 HPF (0-3); pH, Urine 5.5 (5.0-9.0)
[2021-01-27 12:59] LABS: Amphetamine Not Detected (NotDetected); Barbiturates Screen Detected (NotDetected); Benzodiazepine Screen Not Detected (NotDetected); Cocaine Metabolite Screen Not Detected (NotDetected); Methadone Not Detected (NotDetected); Methamphetamine Not Detected (NotDetected); Opiate Screen Not Detected (NotDetected); Oxycodone Screen Not Detected (NotDetected); Phencyclidine (PCP) Not Detected (NotDetected); THC/Cannabinoid Screen Not Detected (NotDetected); Tricyclic Screen Not Detected (NotDetected)
[2021-01-27 13:00] LABS: Pregnancy Test - Urine (BHCG) Negative (Negative); Pregu Control Background? CLEAR/WHITE (CLR/WHITE); Pregu Control Bar Appear? YES (CONTROL BAR); Specific Gravity 1.019 (1.002-1.036)
== END 2021-01-27 13:20 | disposition home or self-care (01) ==
LOC: ERS 10:49
DX: S06.0X0A Concussion without loss of consciousness, initial encounter (principal); I10 Essential (primary) hypertension; I95.9 Hypotension, unspecified; I34.1 Nonrheumatic mitral (valve) prolapse; F17.210 Nicotine dependence, cigarettes, uncomplicated; G43.409 Hemiplegic migraine, not intractable, without status migrainosus; Z79.899 Other long term (current) drug therapy; W01.198A Fall on same level from slipping, tripping and stumbling with subsequent striking against other object, initial encounter
CPT/HCPCS: 36415; 70450; 80053; 80306; 80307; 81003; 81015; 81025; 85025

== ENCOUNTER 2021-02-02 07:23 | Observation (INO) | payer OTHER ==
[2021-02-02 08:13] LABS: #Basophils 0.1 thou/uL (0.0-0.2); #Lymphocytes 2.4 thou/uL (1.20-3.40); #Monocytes 0.6 thou/uL (0.11-0.59); #Neutrophils 4.5 thou/uL (1.40-6.50); %Eosinophils 0.1 % (0.0-10.0); %Lymphocytes 31.3 % (21.0-51.0); %Neutrophils 59.6 % (42.0-75.0); Hemoglobin 13.6 g/dL (12.0-16.0); Mean Corpuscular HGB CONC 32.8 g/dL (32.0-36.0); Mean Corpuscular Hemoglobin 30.1 pg (27.0-31.0); Platelet Count 414 thou/uL (130-400); RBC Distribution Width 15.1 % (11.5-14.5); White Blood Cell (WBC) Count 7.5 thou/uL (4.8-10.8)
[2021-02-02 08:35] LABS: ALT (SGPT) 89 U/L (8-55); AST (SGOT) 46 U/L (5-34); Albumin 4.5 g/dL (3.5-5.0); Alkaline Phosphatase 72 U/L (40-110); Anion Gap 20 mmol/L (10-20); BUN (Urea Nitrogen) 17 mg/dL (7.0-18.7); Bilirubin, Total 0.3 mg/dL (0.2-1.2); Calc. Creatinine Clearance 0 mL/min (70-130); Calcium 9.8 mg/dL (7.8-10.44); Carbon Dioxide 28 mmol/L (22-29); Chloride 98 mmol/L (98-107); Globulin 3.3 g/dL (2.4-3.5); Glucose 136 mg/dL (70-105); Lipase 145 U/L (8-78); Potassium 3.6 mmol/L (3.5-5.1); Protein, Total 7.8 g/dL (6.0-8.3); Sodium 142 mmol/L (136-145)
[2021-02-02] MEDS ORDERED: Ketorolac Tromethamine 30 MG/ML VIAL ONE (08:48)
[2021-02-02] MEDS ORDERED: Acetaminophen 500 MG TAB ONE (08:48)
[2021-02-02 08:57] LABS: CKMB 0.7 ng/mL (0-6.6)
[2021-02-02] MEDS ORDERED: Morphine 4 MG/ML VIAL ONE (09:23)
[2021-02-02] MEDS ORDERED: Ondansetron PF 4 MG/2 ML Vial ONE (09:23)
[2021-02-02 11:02] LABS: SARS-CoV-2 NAA Rapid Test DETECTED (NotDetected)
[2021-02-02 12:11] LABS: Troponin I 0.033 ng/mL (< 0.028)
[2021-02-02 12:40] VITALS: BMI 20.1
[2021-02-02] MEDS ORDERED: hydrOXYzine 25 MG TAB PO SCH (14:00)
[2021-02-02] MEDS ORDERED: Meloxicam 7.5 MG TAB PO PRN (15:51)
[2021-02-02] MEDS ORDERED: Acetaminophen 325 MG TAB PO PRN (15:51)
[2021-02-02] MEDS ORDERED: diphenhydrAMINE 25 MG CAP PO PRN (15:51)
[2021-02-02] MEDS ORDERED: Fioricet 325/50/40 mg Tablet PO PRN (15:51)
[2021-02-02 15:58] LABS: Troponin I Less than 0.010 ng/mL (< 0.028)
[2021-02-02 16:06] VITALS: BP 162/97; TEMP 98.9
[2021-02-02] MEDS ORDERED: Lidocaine 2% Viscous Solution 10 ML, Aluminum & Magnesium Hydroxide 30 ML SSW SCH (18:00)
[2021-02-02] MEDS ORDERED: Atenolol 25 MG TAB PO SCH (21:00)
[2021-02-02] MEDS ORDERED: Dicyclomine 20 MG TAB PO SCH (21:00)
[2021-02-02] MEDS ORDERED: Buprenorphine Hcl [Belbuca] 450 MCG Film SL SCH (21:00)
[2021-02-02] MEDS ORDERED: Losartan 25 MG TAB PO SCH (21:00)
[2021-02-02] MEDS ORDERED: clonazePAM 1 MG TAB PO SCH (21:00)
[2021-02-02] MEDS ORDERED: Midodrine HCl 5 MG TAB PO SCH (21:00)
[2021-02-02] MEDS ORDERED: FLUoxetine HCl 20 MG CAP PO SCH (21:00)
[2021-02-02] MEDS ORDERED: Melatonin 3 MG TAB PO SCH (21:00)
[2021-02-03] MEDS ORDERED: OLANZapine 5 MG TAB PO SCH (09:00)
[2021-02-03] MEDS ORDERED: Fludrocortisone Acetate 0.1 MG TAB PO SCH (09:00)
[2021-02-03] MEDS ORDERED: Digoxin 0.125 MG TAB PO SCH (09:00)
== END 2021-02-02 18:10 | disposition home or self-care (01) ==
LOC: ERS 07:23 → ERHOLD 09:53 → 2SW 12:32
PROVIDERS: ADMIT Emergency Medicine; ATTEND Emergency Medicine
DX: U07.1 COVID-19 (principal); R07.89 Other chest pain; K21.9 Gastro-esophageal reflux disease without esophagitis; I47.1 Supraventricular tachycardia; I10 Essential (primary) hypertension; G89.29 Other chronic pain; Q79.60 Ehlers-Danlos syndrome, unspecified; I08.0 Rheumatic disorders of both mitral and aortic valves; G43.409 Hemiplegic migraine, not intractable, without status migrainosus; F17.210 Nicotine dependence, cigarettes, uncomplicated; I73.00 Raynaud's syndrome without gangrene; Z79.899 Other long term (current) drug therapy; Z88.8 Allergy status to other drugs, medicaments and biological substances
CPT/HCPCS: 36415; 71045; 80053; 82553; 83690; 84484; 85025; 93005; 96374; 96375; G0378; J1885; J2270; J2405; U0002

== ENCOUNTER 2021-03-08 12:39 | Observation (INO) | payer OTHER ==
[2021-03-08 13:16] LABS: #Basophils 0.1 thou/uL (0.0-0.2); #Lymphocytes 1.8 thou/uL (1.20-3.40); #Monocytes 0.5 thou/uL (0.11-0.59); #Neutrophils 7.7 thou/uL (1.40-6.50); %Basophils 0.8 % (0.0-1.0); %Eosinophils 0.2 % (0.0-10.0); %Lymphocytes 17.9 % (21.0-51.0); %Neutrophils 76.2 % (42.0-75.0); Mean Corpuscular HGB CONC 32.4 g/dL (32.0-36.0); Mean Corpuscular Hemoglobin 29.9 pg (27.0-31.0); Mean Corpuscular Volume 92.3 fL (78.0-98.0); Mean Platelet Volume 9.3 fL (7.4-10.4); Platelet Count 295 thou/uL (130-400); RBC Distribution Width 15.1 % (11.5-14.5); Red Blood Cell (RBC) Count 4.01 mill/uL (4.20-5.40); White Blood Cell (WBC) Count 10.1 thou/uL (4.8-10.8)
[2021-03-08 13:39] LABS: ALT (SGPT) 11 U/L (8-55); AST (SGOT) 16 U/L (5-34); Albumin 4.5 g/dL (3.5-5.0); Alkaline Phosphatase 70 U/L (40-110); Anion Gap 16 mmol/L (10-20); BUN (Urea Nitrogen) 11 mg/dL (7.0-18.7); Bilirubin, Total 0.4 mg/dL (0.2-1.2); Calc. Creatinine Clearance 0 mL/min (70-130); Calcium 9.8 mg/dL (7.8-10.44); Carbon Dioxide 23 mmol/L (22-29); Chloride 104 mmol/L (98-107); Globulin 3.4 g/dL (2.4-3.5); Glucose 131 mg/dL (70-105); Potassium 3.7 mmol/L (3.5-5.1); Protein, Total 7.9 g/dL (6.0-8.3); Sodium 139 mmol/L (136-145)
[2021-03-08] MEDS ORDERED: Ondansetron PF 4 MG/2 ML Vial ONE (13:47)
[2021-03-08 13:54] LABS: BHCG - Serum Negative (NEGATIVE); Pregs Control Background? CLEAR/WHITE (CLR/WHITE); Pregs Control Bar Appear? YES (CONTROL BAR)
[2021-03-08] MEDS ORDERED: Ketorolac Tromethamine 30 MG/ML VIAL ONE (14:13)
[2021-03-08] MEDS ORDERED: Nitroglycerin 2% Ointment 1 INCH/1 GM Packet ONE (15:00)
[2021-03-08 15:16] LABS: Bacteria/HPF None Seen HPF (None Seen); Bilirubin Negative (Negative); Blood, Urine Negative (Negative); Clarity Clear (Clear); Glucose, Urine (Dipstick) 50 mg/dL (Negative); Ketone, Urine Negative (Negative); Leukocyte Negative Leu/uL (Negative); Nitrite Negative (Negative); Protein, Urine (Dipstick) 100 mg/dL (Neg-Trace); Squamous Epithelial 0-3 HPF (0-3); Urobilinogen Normal mg/dL (Less than 2); WBC/HPF 0-3 HPF (0-3); pH, Urine 8.5 (5.0-9.0)
[2021-03-08 17:12] LABS: Amphetamine Not Detected (NotDetected); Barbiturates Screen Detected (NotDetected); Benzodiazepine Screen Detected (NotDetected); Cocaine Metabolite Screen Not Detected (NotDetected); Methadone Not Detected (NotDetected); Methamphetamine Not Detected (NotDetected); Opiate Screen Not Detected (NotDetected); Oxycodone Screen Not Detected (NotDetected); Phencyclidine (PCP) Not Detected (NotDetected); THC/Cannabinoid Screen Not Detected (NotDetected); Tricyclic Screen Not Detected (NotDetected)
[2021-03-08] MEDS ORDERED: Lorazepam 2 MG/ML VIAL ONE (17:57)
[2021-03-08] MEDS ORDERED: Acetaminophen 500 MG TAB ONE (20:43)
[2021-03-08] MEDS ORDERED: Acetaminophen 325 MG TAB PO PRN (21:04)
[2021-03-08] MEDS ORDERED: diphenhydrAMINE 50 MG/ML VIAL ONE (21:08)
[2021-03-08 21:38] LABS: Troponin I Less than 0.010 ng/mL (< 0.028)
[2021-03-08 21:52] VITALS: BMI 20.9
[2021-03-08] MEDS ORDERED: Ondansetron ODT 4 MG TAB SL PRN (22:00)
[2021-03-08] MEDS ORDERED: Ondansetron PF 4 MG/2 ML Vial IVP PRN (22:00)
[2021-03-08] MEDS ORDERED: Ketorolac Tromethamine 30 MG/ML VIAL IVP SCH (23:00)
[2021-03-08] MEDS ORDERED: diphenhydrAMINE 50 MG/ML VIAL IVP SCH (23:00)
[2021-03-08] MEDS ORDERED: Metoclopramide HCl 10 MG/2 ML VIAL IVP SCH (23:00)
[2021-03-08 23:20] LABS: Digoxin 0.32 ng/mL (0.8-2.0)
[2021-03-08 23:25] LABS: Troponin I 0.018 ng/mL (< 0.028)
[2021-03-09] MEDS ORDERED: hydrALAZINE 20 MG/ML VIAL SLOW IVP PRN (02:38)
[2021-03-09] MEDS ORDERED: hydrALAZINE 10 MG TAB PO SCH (03:30)
[2021-03-09 05:34] LABS: #Basophils 0.1 thou/uL (0.0-0.2); #Monocytes 0.7 thou/uL (0.11-0.59); #Neutrophils 9.8 thou/uL (1.40-6.50); %Basophils 0.5 % (0.0-1.0); %Eosinophils 0.1 % (0.0-10.0); %Lymphocytes 16.1 % (21.0-51.0); %Monocytes 5.8 % (0.0-10.0); %Neutrophils 77.5 % (42.0-75.0); Hemoglobin 11.5 g/dL (12.0-16.0); Mean Corpuscular HGB CONC 32.4 g/dL (32.0-36.0); Mean Corpuscular Hemoglobin 29.8 pg (27.0-31.0); Mean Platelet Volume 9.4 fL (7.4-10.4); Platelet Count 284 thou/uL (130-400); RBC Distribution Width 14.9 % (11.5-14.5); Red Blood Cell (RBC) Count 3.87 mill/uL (4.20-5.40); White Blood Cell (WBC) Count 12.7 thou/uL (4.8-10.8)
[2021-03-09 05:58] LABS: Anion Gap 14 mmol/L (10-20); BUN (Urea Nitrogen) 8 mg/dL (7.0-18.7); Calc. Creatinine Clearance 104 mL/min (70-130); Calcium 9.3 mg/dL (7.8-10.44); Carbon Dioxide 23 mmol/L (22-29); Chloride 103 mmol/L (98-107); Glucose 104 mg/dL (70-105); Potassium 3.8 mmol/L (3.5-5.1); Sodium 136 mmol/L (136-145)
[2021-03-09 11:35] VITALS: BP 133/95; TEMP 98.7
[2021-03-09] MEDS ORDERED: Non-Formulary Item 1 EACH (Sumatriptan Succinate [Imitrex] 100 MG Tab) PO SCH (12:15)
[2021-03-09] MEDS ORDERED: SUMAtriptan Succinate 50 MG TAB PO SCH ×2 (13:15→21:00)
[2021-03-09 14:40] LABS: SARS-CoV-2 PCR by NAA DETECTED (NotDetected)
== END 2021-03-09 13:31 | disposition home or self-care (01) ==
LOC: ERS 12:39 → 2SW 19:55
PROVIDERS: ADMIT Student in an Organized Health Care Education/Training Program; ATTEND Student in an Organized Health Care Education/Training Program
DX: U07.1 COVID-19 (principal); I20.9 Angina pectoris, unspecified; I47.1 Supraventricular tachycardia; R29.6 Repeated falls; G43.409 Hemiplegic migraine, not intractable, without status migrainosus; F17.210 Nicotine dependence, cigarettes, uncomplicated; Q79.60 Ehlers-Danlos syndrome, unspecified; I10 Essential (primary) hypertension; Z79.899 Other long term (current) drug therapy; Z88.8 Allergy status to other drugs, medicaments and biological substances
CPT/HCPCS: 36415; 71045; 71275; 80048; 80053; 80162; 80306; 81003; 81015; 83735; 84484; 84703; 85025; 93005; 96374; 96375; 96376; G0378; J1200; J1885; J2060; J2405; J2765; Q9967; U0003; U0005

== ENCOUNTER 2021-04-05 12:20 | Observation (INO) | payer OTHER ==
[2021-04-05] MEDS ORDERED: Hydrocortisone Sod Succ/PF 100 mg/2 ml Vial IVP SCH ×2 (13:30→16:30)
[2021-04-05 13:40] LABS: Hemoglobin 9.6 g/dL (12.0-16.0); Mean Corpuscular HGB CONC 33.4 g/dL (32.0-36.0); Mean Corpuscular Volume 95.6 fL (78.0-98.0); Mean Platelet Volume 8.4 fL (7.4-10.4); Platelet Count 330 thou/uL (130-400); RBC Distribution Width 15.3 % (11.5-14.5); White Blood Cell (WBC) Count 4.9 thou/uL (4.8-10.8)
[2021-04-05 13:42] LABS: BHCG - Serum Negative (NEGATIVE); Pregs Control Background? CLEAR/WHITE (CLR/WHITE); Pregs Control Bar Appear? YES (CONTROL BAR)
[2021-04-05 13:59] LABS: ALT (SGPT) 22 U/L (8-55); AST (SGOT) 24 U/L (5-34); Albumin 3.5 g/dL (3.5-5.0); Alkaline Phosphatase 61 U/L (40-110); Anion Gap 11 mmol/L (10-20); BUN (Urea Nitrogen) 15 mg/dL (7.0-18.7); Bilirubin, Total 0.2 mg/dL (0.2-1.2); Calc. Creatinine Clearance 0 mL/min (70-130); Calcium 8.5 mg/dL (7.8-10.44); Carbon Dioxide 30 mmol/L (22-29); Chloride 103 mmol/L (98-107); Globulin 2.7 g/dL (2.4-3.5); Glucose 85 mg/dL (70-105); Potassium 3.6 mmol/L (3.5-5.1); Protein, Total 6.2 g/dL (6.0-8.3); Sodium 140 mmol/L (136-145)
[2021-04-05 14:08] LABS: Band 2 % (5-11); Eosinophils 6 % (0-10); Lymphocytes 56 % (21-51); MDiff Complete? YES; Monocytes 6 % (0-10); Neutrophil 26 % (42-75); Platelet Morphology Comment Appears Adequate; Polychromasia SLIGHT = 2-3 cells (100X) (0-2/hpf); Reactive Lymphocytes 3 % (0-10)
[2021-04-05 14:15] LABS: Thyroid Stimulating Hormone 0.3126 uIU/mL (0.35-4.94)
[2021-04-05 14:29] LABS: Bilirubin Negative (Negative); Blood, Urine Negative (Negative); Clarity Clear (Clear); Glucose, Urine (Dipstick) Normal (Negative); Ketone, Urine Negative (Negative); Leukocyte Negative Leu/uL (Negative); Nitrite Negative (Negative); Protein, Urine (Dipstick) Negative (Neg-Trace); Specific Gravity, Urine 1.007 (1.002-1.036); Urobilinogen Normal mg/dL (Less than 2); pH, Urine 5.5 (5.0-9.0)
[2021-04-05] MEDS ORDERED: Acetaminophen 500 MG TAB ONE (16:58)
[2021-04-05] MEDS ORDERED: Acetaminophen 325 MG TAB PO PRN (17:00)
[2021-04-05] MEDS ORDERED: Acetaminophen 650 MG Suppository PR PRN (17:00)
[2021-04-05] MEDS ORDERED: Lactated Ringer's 1,000 ML IV SCH (17:15)
[2021-04-05] MEDS ORDERED: Lidocaine 5% Patch TD SCH (17:30)
[2021-04-05 17:44] VITALS: BMI 23.8
[2021-04-05] MEDS ORDERED: Melatonin 3 MG TAB PO PRN (17:48)
[2021-04-05] MEDS ORDERED: Ketorolac Tromethamine 30 MG/ML VIAL IVP SCH (20:30)
[2021-04-05] MEDS ORDERED: Transdermal Patch Removal TOP SCH (21:00)
[2021-04-05] MEDS ORDERED: Midodrine HCl 5 MG TAB PO SCH (21:00)
[2021-04-05] MEDS ORDERED: Non-Formulary Item 1 EACH (Midodrine [Midodrine] 10 MG Tab) PO SCH (21:00)
[2021-04-05 21:14] LABS: Amphetamine Not Detected (NotDetected); Barbiturates Screen Detected (NotDetected); Benzodiazepine Screen Not Detected (NotDetected); Cocaine Metabolite Screen Not Detected (NotDetected); Methadone Not Detected (NotDetected); Methamphetamine Not Detected (NotDetected); Opiate Screen Not Detected (NotDetected); Oxycodone Screen Not Detected (NotDetected); Phencyclidine (PCP) Not Detected (NotDetected); THC/Cannabinoid Screen Not Detected (NotDetected); Tricyclic Screen Not Detected (NotDetected)
[2021-04-05] MEDS: Lactated Ringer's 1,000 ML IV SCH (21:14)
[2021-04-05 21:16] LABS: SARS-CoV-2 PCR by NAA Not Detected (NotDetected)
[2021-04-05] MEDS: FLUoxetine HCl 10 MG CAP PO SCH (21:16)
[2021-04-06] MEDS ORDERED: Lactated Ringer's 500 ML IV SCH (00:15)
[2021-04-06] MEDS ORDERED: Lidocaine 5% Patch TD SCH ×2 (09:00→21:00)
[2021-04-06] MEDS ORDERED: Fludrocortisone Acetate 0.1 MG TAB PO SCH (09:00)
[2021-04-06] MEDS ORDERED: Midodrine HCl 5 MG TAB PO SCH (09:00)
[2021-04-06] MEDS ORDERED: Transdermal Patch Removal TOP SCH (09:00)
[2021-04-06] MEDS ORDERED: Digoxin 0.125 MG TAB PO SCH (09:00)
[2021-04-06] MEDS ORDERED: Enoxaparin Sodium 40 MG/0.4 ML SYRINGE SC SCH (09:00)
[2021-04-06] MEDS: FLUoxetine HCl 10 MG CAP PO SCH (09:32)
[2021-04-06] MEDS: Lactated Ringer's 1,000 ML IV SCH (09:46)
[2021-04-06 11:02] LABS: #Basophils 0.1 thou/uL (0.0-0.2); #Eosinphils 0.2 thou/uL (0.0-0.7); #Lymphocytes 3.3 thou/uL (1.20-3.40); #Monocytes 0.6 thou/uL (0.11-0.59); #Neutrophils 5.4 thou/uL (1.40-6.50); %Basophils 0.9 % (0.0-1.0); %Eosinophils 2.5 % (0.0-10.0); %Monocytes 6.3 % (0.0-10.0); %Neutrophils 56.3 % (42.0-75.0); Hemoglobin 9.1 g/dL (12.0-16.0); Mean Corpuscular HGB CONC 32.1 g/dL (32.0-36.0); Mean Corpuscular Hemoglobin 30.5 pg (27.0-31.0); Mean Platelet Volume 8.2 fL (7.4-10.4); Platelet Count 330 thou/uL (130-400); RBC Distribution Width 15.5 % (11.5-14.5); Red Blood Cell (RBC) Count 2.98 mill/uL (4.20-5.40); White Blood Cell (WBC) Count 9.6 thou/uL (4.8-10.8)
[2021-04-06 16:06] VITALS: BP 124/82; TEMP 98
== END 2021-04-06 16:53 | disposition home or self-care (01) ==
LOC: ERS 12:20 → ERHOLD 15:15 → 2SW 17:12
PROVIDERS: ADMIT Family Medicine; ATTEND Family Medicine
DX: I95.2 Hypotension due to drugs (principal); T50.915A Adverse effect of multiple unspecified drugs, medicaments and biological substances, initial encounter; E03.9 Hypothyroidism, unspecified; G43.409 Hemiplegic migraine, not intractable, without status migrainosus; D53.9 Nutritional anemia, unspecified; F31.9 Bipolar disorder, unspecified; F41.9 Anxiety disorder, unspecified; F43.10 Post-traumatic stress disorder, unspecified; Q79.60 Ehlers-Danlos syndrome, unspecified; I10 Essential (primary) hypertension; Z91.14 Patient's other noncompliance with medication regimen; Z79.899 Other long term (current) drug therapy; Z88.8 Allergy status to other drugs, medicaments and biological substances; Z20.822 Contact with and (suspected) exposure to COVID-19
CPT/HCPCS: 36415; 80053; 80162; 80306; 81003; 82533; 83605; 84439; 84443; 84484; 84703; 85025; 87040; 87086; 93005; 96372; 96374; G0378; J1650; J1885; J7120; U0003; U0005

== ENCOUNTER 2021-04-10 16:02 | Emergency (ER) | payer OTHER ==
[2021-04-10 17:04] LABS: #Basophils 0.1 thou/uL (0.0-0.2); #Eosinphils 0.2 thou/uL (0.0-0.7); #Lymphocytes 2.8 thou/uL (1.20-3.40); #Monocytes 0.9 thou/uL (0.11-0.59); #Neutrophils 8.3 thou/uL (1.40-6.50); %Basophils 0.7 % (0.0-1.0); %Eosinophils 1.5 % (0.0-10.0); %Neutrophils 67.8 % (42.0-75.0); Hemoglobin 10.1 g/dL (12.0-16.0); Mean Corpuscular HGB CONC 32.7 g/dL (32.0-36.0); Mean Corpuscular Volume 94.7 fL (78.0-98.0); Mean Platelet Volume 8.3 fL (7.4-10.4); Platelet Count 405 thou/uL (130-400); RBC Distribution Width 15.2 % (11.5-14.5); Red Blood Cell (RBC) Count 3.26 mill/uL (4.20-5.40); White Blood Cell (WBC) Count 12.2 thou/uL (4.8-10.8)
[2021-04-10 17:21] LABS: ALT (SGPT) 26 U/L (8-55); AST (SGOT) 23 U/L (5-34); Alkaline Phosphatase 67 U/L (40-110); Anion Gap 12 mmol/L (10-20); BUN (Urea Nitrogen) 15 mg/dL (7.0-18.7); Bilirubin, Total 0.2 mg/dL (0.2-1.2); Calc. Creatinine Clearance 0 mL/min (70-130); Calcium 9.3 mg/dL (7.8-10.44); Carbon Dioxide 30 mmol/L (22-29); Chloride 101 mmol/L (98-107); Globulin 2.9 g/dL (2.4-3.5); Glucose 79 mg/dL (70-105); Lipase 55 U/L (8-78); Magnesium 2.1 mg/dL (1.6-2.6); Potassium 4.5 mmol/L (3.5-5.1); Protein, Total 6.9 g/dL (6.0-8.3); Sodium 138 mmol/L (136-145)
[2021-04-10] MEDS ORDERED: Ketorolac Tromethamine 30 MG/ML VIAL ONE (18:48)
[2021-04-10 19:57] LABS: Troponin I Less than 0.010 ng/mL (< 0.028)
[2021-04-10] MEDS ORDERED: Lorazepam 2 MG/ML VIAL ONE (20:19)
[2021-04-10] MEDS ORDERED: Morphine 4 MG/ML VIAL ONE (20:19)
== END 2021-04-10 20:48 | disposition home or self-care (01) ==
LOC: ERS 16:02
DX: R07.9 Chest pain, unspecified (principal); I10 Essential (primary) hypertension; G40.909 Epilepsy, unspecified, not intractable, without status epilepticus; F17.210 Nicotine dependence, cigarettes, uncomplicated
CPT/HCPCS: 36415; 71045; 80053; 83690; 83735; 83880; 84484; 85025; 93005; 94760; 96372; J1885; J2060; J2270

== ENCOUNTER 2021-05-04 13:06 | Observation (INO) | payer OTHER ==
[2021-05-04 13:51] LABS: #Basophils 0.1 thou/uL (0.0-0.2); #Eosinphils 0.3 thou/uL (0.0-0.7); #Lymphocytes 3.2 thou/uL (1.20-3.40); #Monocytes 0.6 thou/uL (0.11-0.59); #Neutrophils 5.2 thou/uL (1.40-6.50); %Eosinophils 3.2 % (0.0-10.0); %Lymphocytes 34.3 % (21.0-51.0); %Monocytes 5.9 % (0.0-10.0); %Neutrophils 55.6 % (42.0-75.0); Hemoglobin 11.1 g/dL (12.0-16.0); Mean Corpuscular HGB CONC 32.2 g/dL (32.0-36.0); Mean Corpuscular Hemoglobin 31.1 pg (27.0-31.0); Mean Corpuscular Volume 96.3 fL (78.0-98.0); Mean Platelet Volume 8.3 fL (7.4-10.4); Platelet Count 307 thou/uL (130-400); RBC Distribution Width 14.6 % (11.5-14.5); Red Blood Cell (RBC) Count 3.56 mill/uL (4.20-5.40); White Blood Cell (WBC) Count 9.4 thou/uL (4.8-10.8)
[2021-05-04 14:15] LABS: ALT (SGPT) 8 U/L (8-55); AST (SGOT) 15 U/L (5-34); Acetaminophen Less than 6.0 mcg/mL (10.0-30.0); Albumin 4.1 g/dL (3.5-5.0); Alcohol Less than 10 mg/dL (Less than 10); Alkaline Phosphatase 80 U/L (40-110); Anion Gap 12 mmol/L (10-20); BUN (Urea Nitrogen) 18 mg/dL (7.0-18.7); Bilirubin, Total 0.2 mg/dL (0.2-1.2); Calc. Creatinine Clearance 0 mL/min (70-130); Calcium 8.8 mg/dL (7.8-10.44); Carbon Dioxide 32 mmol/L (22-29); Chloride 97 mmol/L (98-107); Globulin 3.1 g/dL (2.4-3.5); Glucose 87 mg/dL (70-105); Potassium 4.5 mmol/L (3.5-5.1); Protein, Total 7.2 g/dL (6.0-8.3); Salicylate Less than 8.0 mg/dL (15.0-30.0); Sodium 136 mmol/L (136-145)
[2021-05-04 14:18] LABS: Bilirubin Negative (Negative); Blood, Urine Negative (Negative); Clarity Clear (Clear); Glucose, Urine (Dipstick) Normal (Negative); Ketone, Urine Negative (Negative); Leukocyte Negative Leu/uL (Negative); Nitrite Negative (Negative); Protein, Urine (Dipstick) Negative (Neg-Trace); Specific Gravity, Urine 1.012 (1.002-1.036); Urobilinogen Normal mg/dL (Less than 2); pH, Urine 5.5 (5.0-9.0)
[2021-05-04 14:25] LABS: Amphetamine Not Detected (NotDetected); Barbiturates Screen Detected (NotDetected); Benzodiazepine Screen Detected (NotDetected); Cocaine Metabolite Screen Not Detected (NotDetected); Methadone Not Detected (NotDetected); Methamphetamine Not Detected (NotDetected); Opiate Screen Not Detected (NotDetected); Oxycodone Screen Not Detected (NotDetected); Phencyclidine (PCP) Not Detected (NotDetected); THC/Cannabinoid Screen Not Detected (NotDetected); Tricyclic Screen Not Detected (NotDetected)
[2021-05-04] MEDS ORDERED: Ketorolac Tromethamine 30 MG/ML VIAL ONE (14:42)
[2021-05-04] MEDS ORDERED: diphenhydrAMINE 50 MG/ML VIAL ONE (14:42)
[2021-05-04] MEDS ORDERED: Metoclopramide HCl 10 MG/2 ML VIAL ONE (14:42)
[2021-05-04] MEDS ORDERED: Acetaminophen 325 MG TAB PO PRN (16:14)
[2021-05-04] MEDS ORDERED: Acetaminophen 650 MG Suppository PR PRN (16:14)
[2021-05-04] MEDS ORDERED: Calcium Carbonate 500 MG ChewTAB PO PRN (16:14)
[2021-05-04] MEDS ORDERED: diphenhydrAMINE 25 MG CAP PO PRN (16:32)
[2021-05-04] MEDS ORDERED: Lactated Ringer's 1,000 ML IV SCH ×2 (17:30→23:30)
[2021-05-04 19:33] VITALS: BMI 22.5
[2021-05-04] MEDS ORDERED: Non-Formulary Item 1 EACH (Midodrine [Midodrine] 10 MG Tab) PO SCH (21:00)
[2021-05-04] MEDS ORDERED: SUMAtriptan Succinate 50 MG TAB PO PRN (21:00)
[2021-05-04] MEDS ORDERED: Melatonin 3 MG TAB PO SCH (21:00)
[2021-05-04] MEDS ORDERED: Lidocaine 5% Patch TD SCH (21:00)
[2021-05-04] MEDS: FLUoxetine HCl 20 MG CAP PO SCH (21:25)
[2021-05-04] MEDS: tiZANidine HCl 4 MG TAB PO SCH (21:26)
[2021-05-04] MEDS: Fioricet 325/50/40 mg Tablet PO PRN (21:26)
[2021-05-04 22:33] LABS: SARS-CoV-2 NAA Rapid Test Not Detected (NotDetected)
[2021-05-05] MEDS ORDERED: Enoxaparin Sodium 40 MG/0.4 ML SYRINGE SC SCH (09:00)
[2021-05-05] MEDS: FLUoxetine HCl 20 MG CAP PO SCH (09:23)
[2021-05-05] MEDS: tiZANidine HCl 4 MG TAB PO SCH (09:23)
[2021-05-05] MEDS: Fioricet 325/50/40 mg Tablet PO PRN (09:25)
[2021-05-05 12:00] VITALS: BP 114/75; TEMP 98.3
== END 2021-05-05 14:05 | disposition home or self-care (01) ==
LOC: ERS 13:06 → ERHOLD 14:43 → 2SW 19:14
PROVIDERS: ADMIT Student in an Organized Health Care Education/Training Program; ATTEND Student in an Organized Health Care Education/Training Program
DX: I95.1 Orthostatic hypotension (principal); G43.709 Chronic migraine without aura, not intractable, without status migrainosus; D53.9 Nutritional anemia, unspecified; Q79.60 Ehlers-Danlos syndrome, unspecified; F17.210 Nicotine dependence, cigarettes, uncomplicated; I10 Essential (primary) hypertension; F90.9 Attention-deficit hyperactivity disorder, unspecified type; I08.0 Rheumatic disorders of both mitral and aortic valves; Z79.899 Other long term (current) drug therapy; Z88.8 Allergy status to other drugs, medicaments and biological substances; Z91.012 Allergy to eggs; Z20.822 Contact with and (suspected) exposure to COVID-19
CPT/HCPCS: 70450; 71045; 80053; 80306; 80307; 81003; 83605; 84484; 85025; 93005; 96365; 96372; 96375; G0378; J1200; J1650; J1885; J2765; J3475; J3490; J7120; U0002

== ENCOUNTER 2021-05-10 12:36 | Inpatient (IN) | payer OTHER ==
[2021-05-10 13:46] LABS: Hemoglobin 13.9 g/dL (12.0-16.0); Mean Corpuscular HGB CONC 34.1 g/dL (32.0-36.0); Mean Corpuscular Hemoglobin 32.3 pg (27.0-31.0); Mean Corpuscular Volume 94.6 fL (78.0-98.0); Mean Platelet Volume 9.4 fL (7.4-10.4); Platelet Count 368 thou/uL (130-400); RBC Distribution Width 14.7 % (11.5-14.5); Red Blood Cell (RBC) Count 4.29 mill/uL (4.20-5.40); White Blood Cell (WBC) Count 8.1 thou/uL (4.8-10.8)
[2021-05-10 14:03] LABS: ALT (SGPT) 11 U/L (8-55); AST (SGOT) 16 U/L (5-34); Albumin 4.7 g/dL (3.5-5.0); Alkaline Phosphatase 91 U/L (40-110); Anion Gap 16 mmol/L (10-20); BUN (Urea Nitrogen) 25 mg/dL (7.0-18.7); Bilirubin, Total 0.2 mg/dL (0.2-1.2); Calc. Creatinine Clearance 0 mL/min (70-130); Carbon Dioxide 31 mmol/L (22-29); Chloride 95 mmol/L (98-107); Globulin 4.1 g/dL (2.4-3.5); Glucose 134 mg/dL (70-105); Potassium 3.8 mmol/L (3.5-5.1); Protein, Total 8.8 g/dL (6.0-8.3); Sodium 138 mmol/L (136-145)
[2021-05-10 14:14] LABS: Eosinophils 1 % (0-10); Lymphocytes 49 % (21-51); MDiff Complete? YES; Monocytes 4 % (0-10); Neutrophil 45 % (42-75); Platelet Morphology Comment Appears Adequate; Polychromasia SLIGHT = 2-3 cells (100X) (0-2/hpf); Stomatocytes SLIGHT = 2-5 cells (100X) (0-1/hpf)
[2021-05-10 14:39] LABS: Digoxin 0.17 ng/mL (0.8-2.0)
[2021-05-10 14:42] LABS: Bilirubin Negative (Negative); Blood, Urine Negative (Negative); Clarity Clear (Clear); Glucose, Urine (Dipstick) Normal (Negative); Ketone, Urine Negative (Negative); Leukocyte Negative Leu/uL (Negative); Nitrite Negative (Negative); Protein, Urine (Dipstick) Negative (Neg-Trace); Specific Gravity, Urine 1.009 (1.002-1.036); Urobilinogen Normal mg/dL (Less than 2)
[2021-05-10 14:45] LABS: Pregnancy Test - Urine (BHCG) Negative (Negative); Pregu Control Background? CLEAR/WHITE (CLR/WHITE); Pregu Control Bar Appear? YES (CONTROL BAR); Specific Gravity 1.009 (1.002-1.036)
[2021-05-10] MEDS ORDERED: Lidocaine 4% Cream 5 GM TUBE w/ Tegaderm ONE (16:11)
[2021-05-10] MEDS ORDERED: Morphine 4 MG/ML VIAL ONE (16:40)
[2021-05-10] MEDS ORDERED: Lidocaine 1% w/Epinephrine 1:100K 20 ML VIAL ONE (17:24)
[2021-05-10] MEDS ORDERED: Acetaminophen 500 MG TAB ONE (19:20)
[2021-05-10 19:27] LABS: Amphetamine Not Detected (NotDetected); Barbiturates Screen Detected (NotDetected); Benzodiazepine Screen Detected (NotDetected); Cocaine Metabolite Screen Not Detected (NotDetected); Methadone Not Detected (NotDetected); Methamphetamine Not Detected (NotDetected); Opiate Screen Not Detected (NotDetected); Oxycodone Screen Not Detected (NotDetected); Phencyclidine (PCP) Not Detected (NotDetected); THC/Cannabinoid Screen Not Detected (NotDetected); Tricyclic Screen Not Detected (NotDetected)
[2021-05-10 19:28] LABS: SARS-CoV-2 NAA Rapid Test Not Detected (NotDetected)
[2021-05-10] MEDS ORDERED: Acetaminophen 500 MG TAB PO PRN (19:42)
[2021-05-10 20:08] VITALS: BMI 22.7
[2021-05-10] MEDS: Lactated Ringer's 1,000 ML IV SCH (20:20)
[2021-05-11] MEDS ORDERED: Calcium Carbonate 500 MG ChewTAB PO PRN (02:13)
[2021-05-11] MEDS: Lactated Ringer's 1,000 ML IV SCH ×3 (04:08→11:15)
[2021-05-11 08:49] VITALS: TEMP 98.5
[2021-05-11] MEDS ORDERED: FLUoxetine HCl 20 MG CAP PO SCH (09:00)
[2021-05-11] MEDS ORDERED: FLU VACC QS2021-22(6MOS UP)/PF 60 MCG/0.5 ML SYRINGE IM ONE (09:00)
[2021-05-11] MEDS ORDERED: Lidocaine 5% Patch TD SCH (09:00)
[2021-05-11] MEDS ORDERED: Famotidine 20 MG TAB PO SCH (09:00)
[2021-05-11] MEDS ORDERED: Enoxaparin Sodium 30 MG/0.3 ML SYRINGE SC SCH (09:00)
[2021-05-11 09:13] LABS: Hemoglobin 10.5 g/dL (12.0-16.0); Mean Corpuscular HGB CONC 32.3 g/dL (32.0-36.0); Mean Corpuscular Hemoglobin 30.6 pg (27.0-31.0); Mean Corpuscular Volume 94.6 fL (78.0-98.0); Mean Platelet Volume 8.8 fL (7.4-10.4); Platelet Count 289 thou/uL (130-400); RBC Distribution Width 14.5 % (11.5-14.5); Red Blood Cell (RBC) Count 3.45 mill/uL (4.20-5.40); White Blood Cell (WBC) Count 9.5 thou/uL (4.8-10.8)
[2021-05-11 09:31] LABS: Anion Gap 10 mmol/L (10-20); BUN (Urea Nitrogen) 12 mg/dL (7.0-18.7); Calc. Creatinine Clearance 97 mL/min (70-130); Calcium 8.9 mg/dL (7.8-10.44); Carbon Dioxide 27 mmol/L (22-29); Chloride 106 mmol/L (98-107); Glucose 97 mg/dL (70-105); Potassium 3.8 mmol/L (3.5-5.1); Sodium 139 mmol/L (136-145)
[2021-05-11 09:36] LABS: #Basophils 0.1 thou/uL (0.0-0.2); #Eosinphils 0.2 thou/uL (0.0-0.7); #Monocytes 0.6 thou/uL (0.11-0.59); #Neutrophils 6.7 thou/uL (1.40-6.50); %Basophils 0.6 % (0.0-1.0); %Eosinophils 2.2 % (0.0-10.0); %Lymphocytes 20.7 % (21.0-51.0); %Monocytes 6.5 % (0.0-10.0); %Neutrophils 70.1 % (42.0-75.0)
[2021-05-11 10:03] VITALS: BP 108/75
[2021-05-11] MEDS ORDERED: Ketorolac Tromethamine 30 MG/ML VIAL IVP SCH (12:15)
[2021-05-11] MEDS ORDERED: Transdermal Patch Removal TOP SCH (21:00)
== END 2021-05-11 12:28 | disposition home or self-care (01) | DRG 683 ==
LOC: ERS 12:36 → T4-A 18:47
PROVIDERS: ADMIT Emergency Medicine; ATTEND Emergency Medicine
PROC: 0HQ1XZZ Repair Face Skin, External Approach (ICD-10-PCS; principal; 2021-05-10)
DX: N17.9 Acute kidney failure, unspecified (principal); Q79.60 Ehlers-Danlos syndrome, unspecified; Z20.822 Contact with and (suspected) exposure to COVID-19; S01.112A Laceration without foreign body of left eyelid and periocular area, initial encounter; F43.10 Post-traumatic stress disorder, unspecified; G47.00 Insomnia, unspecified; I95.2 Hypotension due to drugs; T42.3X5A Adverse effect of barbiturates, initial encounter; T42.4X5A Adverse effect of benzodiazepines, initial encounter; F90.9 Attention-deficit hyperactivity disorder, unspecified type; F41.9 Anxiety disorder, unspecified; F31.9 Bipolar disorder, unspecified; I08.0 Rheumatic disorders of both mitral and aortic valves; G43.409 Hemiplegic migraine, not intractable, without status migrainosus; F17.210 Nicotine dependence, cigarettes, uncomplicated; R94.31 Abnormal electrocardiogram [ECG] [EKG]; F19.10 Other psychoactive substance abuse, uncomplicated; W06.XXXA Fall from bed, initial encounter; Y92.238 Other place in hospital as the place of occurrence of the external cause; Z88.6 Allergy status to analgesic agent; Z88.1 Allergy status to other antibiotic agents; Z91.012 Allergy to eggs; Z88.8 Allergy status to other drugs, medicaments and biological substances; Z91.018 Allergy to other foods; Z79.899 Other long term (current) drug therapy; Z98.890 Other specified postprocedural states; Z90.89 Acquired absence of other organs; Z80.0 Family history of malignant neoplasm of digestive organs; Z83.79 Family history of other diseases of the digestive system; Z82.49 Family history of ischemic heart disease and other diseases of the circulatory system
CPT/HCPCS: 12011; 36415; 70450; 70486; 72125; 80053; 80162; 80306; 81003; 81025; 84484; 85025; 93005; 96372; J1650; J1885; J2270; J7120; U0002

== ENCOUNTER 2021-12-30 12:25 | Outpatient (CLI) | payer OTHER ==
[2021-12-30 13:54] LABS: Hemoglobin 11.5 g/dL (12.0-15.5); Mean Corpuscular HGB CONC 31.6 g/dL (32.0-36.0); Mean Corpuscular Hemoglobin 28.2 pg (27.0-33.0); Mean Corpuscular Volume 89.2 fl (81.6-98.3); Mean Platelet Volume 10.4 fl (7.4-10.4); Platelet Count 424 10x3/uL (150-450); Red Blood Cell (RBC) Count 4.08 10x6/uL (3.90-5.03); White Blood Cell (WBC) Count 7.2 10x3/uL (3.5-10.5)
[2021-12-30 14:03] LABS: Anion Gap 14 mmol/L (10-20); BUN (Urea Nitrogen) 8 mg/dL (7.0-18.7); Calc. Creatinine Clearance 0 mL/min (70-130); Calcium 8.9 mg/dL (7.8-10.44); Carbon Dioxide 25 mmol/L (22-29); Chloride 105 mmol/L (98-107); Estimated GFR 97; Glucose 111 mg/dL (70-105); INR-International Normal Ratio 0.9; PTT 24.2 sec (22.0-33.0); Potassium 4.7 mmol/L (3.5-5.1); Prothrombin Time 10.1 sec (9.5-12.1); Sodium 139 mmol/L (136-145)
== END 2021-12-30 12:26 | disposition home or self-care (01) ==
LOC: LABBT 12:25
PROVIDERS: ATTEND Internal Medicine Cardiovascular Disease
DX: Z01.812 Encounter for preprocedural laboratory examination (principal); I49.5 Sick sinus syndrome; Z20.822 Contact with and (suspected) exposure to COVID-19
CPT/HCPCS: 80048; 85027; 85610; 85730; 87811

== ENCOUNTER 2022-01-04 08:36 | Day surgery (SDC) | payer OTHER ==
[2021-12-31 13:36] VITALS: BMI 27.4
[2022-01-04] MEDS ORDERED: Gentamicin 80 MG/50 ML BAG ONE (11:05)
[2022-01-04] MEDS ORDERED: CEFAZOLIN 1 GM VIAL ONE (11:05)
[2022-01-04] MEDS ORDERED: Lidocaine 1% PF 5 ML VIAL ONE ×3 (11:06→11:58)
[2022-01-04] MEDS ORDERED: Fentanyl 100 MCG/2 ML VIAL ONE (11:52)
[2022-01-04] MEDS ORDERED: Midazolam HCl 2 mg/2 ml Vial ONE (11:53)
[2022-01-04] MEDS ORDERED: PROPOFOL 200 MG/20 ML VIAL ONE (11:58)
[2022-01-04] MEDS ORDERED: Ondansetron PF 4 MG/2 ML Vial ONE (11:58)
[2022-01-04] MEDS ORDERED: Dexamethasone 20 MG/5 ML VIAL ONE (11:58)
[2022-01-04] MEDS ORDERED: Heparin 10,000 UNITS/ 10 ML VIAL ONE (13:22)
[2022-01-04] MEDS ORDERED: Iopamidol 370 76% 50 ML VIAL FS ONE (15:32)
== END 2022-01-04 16:35 | disposition home or self-care (01) ==
LOC: SDC 08:36
PROVIDERS: ATTEND Internal Medicine Cardiovascular Disease
PROC: 02HK3JZ Insertion of Pacemaker Lead into Right Ventricle, Percutaneous Approach (ICD-10-PCS; principal; 2022-01-04)
PROC: 0JH604Z Insertion of Pacemaker, Single Chamber into Chest Subcutaneous Tissue and Fascia, Open Approach (ICD-10-PCS; principal; 2022-01-04)
DX: I49.5 Sick sinus syndrome (principal); R55 Syncope and collapse; I49.3 Ventricular premature depolarization; Q79.60 Ehlers-Danlos syndrome, unspecified; I10 Essential (primary) hypertension; G43.909 Migraine, unspecified, not intractable, without status migrainosus; Z87.891 Personal history of nicotine dependence; Z79.899 Other long term (current) drug therapy; Z88.2 Allergy status to sulfonamides; Z88.8 Allergy status to other drugs, medicaments and biological substances; Z91.012 Allergy to eggs
CPT/HCPCS: 71045; 93005; C1760; C1769; C1894; J0690; J1100; J1580; J1644; J2250; J2405; J2704; J3010; Q9967

== ENCOUNTER 2022-10-05 13:19 | Emergency (ER) | payer OTHER ==
[~2022-10-05 13:19] MED LIST changes: +Iopamidol 370 76% 100 ML VIAL ONE; -Iopamidol-370 76% 500 ML 1 ML ONE
[2022-10-05] MEDS ORDERED: diphenhydrAMINE 50 MG/ML VIAL ONE (14:38)
[2022-10-05] MEDS ORDERED: Magnesium 2 GM/50 ML BAG (IN WATER) ONE (14:38)
[2022-10-05] MEDS ORDERED: Prochlorperazine 10 MG/2 ML VIAL ONE (14:42)
[2022-10-05 15:02] LABS: Hemoglobin 11.1 g/dL (12.0-16.0); Mean Corpuscular HGB CONC 31.6 g/dL (32.0-36.0); Mean Corpuscular Hemoglobin 28.4 pg (27.0-31.0); Mean Corpuscular Volume 89.8 fl (78.0-98.0); Mean Platelet Volume 10.3 fL (7.4-10.4); Platelet Count 420 10x3/uL (130-400); RBC Distribution Width 15.1 % (11.5-14.5); Red Blood Cell (RBC) Count 3.91 mill/uL (4.20-5.40)
[2022-10-05 15:03] LABS: Delete Auto Diff?? YES; Manual Diff?? YES
[2022-10-05 15:16] LABS: BHCG - Serum Negative (NEGATIVE); Digoxin 0.83 ng/mL (0.8-2.0); Pregs Control Background? CLEAR/WHITE (CLR/WHITE); Pregs Control Bar Appear? YES (CONTROL BAR)
[2022-10-05 15:18] LABS: ALT (SGPT) 13 U/L (8-55); AST (SGOT) 17 U/L (5-34); Albumin 3.7 g/dL (3.5-5.0); Alkaline Phosphatase 89 U/L (40-110); Anion Gap 11 mmol/L (10-20); BUN (Urea Nitrogen) 17 mg/dL (7.0-18.7); Bilirubin, Total 0.2 mg/dL (0.2-1.2); CK (CPK) 92 U/L (29-168); Calc. Creatinine Clearance 0 mL/min (70-130); Calcium 8.5 mg/dL (7.8-10.44); Carbon Dioxide 24 mmol/L (22-29); Chloride 98 mmol/L (98-107); Estimated GFR 34; Globulin 3.3 g/dL (2.4-3.5); Glucose 83 mg/dL (70-105); Lipase 46 U/L (8-78); Potassium 4.2 mmol/L (3.5-5.1); Sodium 129 mmol/L (136-145)
[2022-10-05 15:23] LABS: CellaVision Operator ID LAB.MJL; Eosinophils 1 % (0-10); Lymphocytes 38 % (21-51); Monocytes 4 % (0-10); Neutrophil 56 % (42-75); Ovalocytes SLIGHT = 2-5 cells HPF (0-1); Platelet Morphology Comment Platelets Increased; Polychromasia SLIGHT = 2-3 cells HPF (0-2); Total Cell Count 100
[2022-10-05] MEDS ORDERED: Morphine 4 MG/ML VIAL ONE (15:56)
[2022-10-05] MEDS ORDERED: fentaNYL 50 mcg/mL 1 mL Vial ONE (17:28)
== END 2022-10-05 17:35 | disposition home or self-care (01) ==
LOC: ERS 13:19
DX: R51.9 Headache, unspecified (principal); R07.89 Other chest pain; F17.210 Nicotine dependence, cigarettes, uncomplicated
CPT/HCPCS: 36415; 70450; 71275; 74174; 80053; 80162; 82550; 83690; 83880; 84484; 84703; 85025; 93005; J0780; J1200; J2270; J3010; J3475

== ENCOUNTER 2022-12-01 07:15 | Emergency (ER) | payer OTHER ==
[2022-12-01] MEDS ORDERED: HYDROcodone/Acetaminophen 5/325 mg Tablet ONE (08:09)
== END 2022-12-01 08:14 | disposition home or self-care (01) ==
LOC: ERS 07:15
DX: S20.20XA Contusion of thorax, unspecified, initial encounter (principal); J18.9 Pneumonia, unspecified organism; I10 Essential (primary) hypertension; F17.210 Nicotine dependence, cigarettes, uncomplicated; W01.0XXA Fall on same level from slipping, tripping and stumbling without subsequent striking against object, initial encounter
CPT/HCPCS: 71045

== ENCOUNTER 2023-02-03 15:10 | Emergency (ER) | payer OTHER ==
[2023-02-03] MEDS ORDERED: Iopamidol-370 76% 500 ML MDV (1 ML CHARGE) ONE (15:12)
[2023-02-03 15:35] LABS: #Basophils 0.1 thou/uL (0.0-0.2); #Monocytes 0.4 thou/uL (0.11-0.59); #Neutrophils 11.7 thou/uL (1.40-6.50); %Basophils 0.4 % (0.0-1.0); %Lymphocytes 14.8 % (21.0-51.0); %Monocytes 2.6 % (0.0-10.0); %Neutrophils 81.8 % (42.0-75.0); Hematocrit 36.8 % (36.0-47.0); Hemoglobin 11.8 g/dL (12.0-16.0); Mean Corpuscular HGB CONC 32.1 g/dL (32.0-36.0); Mean Corpuscular Hemoglobin 27.8 pg (27.0-31.0); Mean Corpuscular Volume 86.8 fl (78.0-98.0); Mean Platelet Volume 10.9 fL (7.4-10.4); Platelet Count 620 10x3/uL (130-400); RBC Distribution Width 16.4 % (11.5-14.5); Red Blood Cell (RBC) Count 4.24 mill/uL (4.20-5.40); White Blood Cell (WBC) Count 14.3 10x3/uL (4.8-10.8)
[2023-02-03 16:04] LABS: ALT (SGPT) 14 U/L (8-55); AST (SGOT) 17 U/L (5-34); Albumin 4.3 g/dL (3.5-5.0); Alkaline Phosphatase 106 U/L (40-110); Anion Gap 15 mmol/L (10-20); BUN (Urea Nitrogen) 14 mg/dL (7.0-18.7); Bilirubin, Total 0.4 mg/dL (0.2-1.2); Calc. Creatinine Clearance 0 mL/min (70-130); Calcium 9.6 mg/dL (7.8-10.44); Carbon Dioxide 21 mmol/L (22-29); Chloride 104 mmol/L (98-107); Estimated GFR 88; Globulin 4.4 g/dL (2.4-3.5); Glucose 152 mg/dL (70-105); Lipase 32 U/L (8-78); Potassium 4.1 mmol/L (3.5-5.1); Protein, Total 8.7 g/dL (6.0-8.3); Sodium 136 mmol/L (136-145)
[2023-02-03] MEDS ORDERED: Ondansetron PF 4 MG/2 ML Vial ONE (16:04)
[2023-02-03 16:41] LABS: PTT 24.8 sec (22.9-36.1); Prothrombin Time 13.7 sec (12.0-14.7)
[2023-02-03 16:46] LABS: SARS-CoV-2 NAA Rapid Test Not Detected (NotDetected)
[2023-02-03] MEDS ORDERED: Cefepime 2 GM VIAL ONE (16:49)
[2023-02-03] MEDS ORDERED: Morphine 4 MG/ML VIAL ONE ×2 (16:49→20:08)
[2023-02-03 16:58] LABS: Bacteria/HPF None Seen HPF (None Seen); Bilirubin Negative (Negative); Blood, Urine Trace (Negative); CAUTI Indications for Culture Pelvic or flank pain; Clarity Turbid (Clear); Glucose, Urine (Dipstick) 150 mg/dL (Negative); Ketone, Urine Greater than 150 mg/dL (Negative); Leukocyte Negative Leu/uL (Negative); Nitrite Negative (Negative); Protein, Urine (Dipstick) 200 mg/dL (Neg-Trace); Specific Gravity, Urine 1.025 (1.002-1.036); Urobilinogen Normal mg/dL (Less than 2); WBC/HPF 0-3 HPF (0-3); pH, Urine 7.5 (5.0-9.0)
[2023-02-03 17:00] LABS: Urine Culture Reflex No No
[2023-02-03] MEDS ORDERED: VANCOMYCIN 1.25 GM/250 ML BAG 1.25 GM in Premix Bag 1 BAG IVPB SCH (17:30)
[2023-02-03 17:42] LABS: BHCG - Serum Negative (NEGATIVE); Pregs Control Background? CLEAR/WHITE (CLR/WHITE); Pregs Control Bar Appear? YES (CONTROL BAR)
[2023-02-03] MEDS ORDERED: Atenolol 50 MG TAB PO SCH (19:00)
[2023-02-03] MEDS ORDERED: Promethazine HCl 25 MG/ML VIAL ONE (20:29)
== END 2023-02-03 21:15 | disposition home or self-care (01) ==
LOC: ERS 15:10
DX: R11.2 Nausea with vomiting, unspecified (principal); R10.9 Unspecified abdominal pain; I10 Essential (primary) hypertension; F17.210 Nicotine dependence, cigarettes, uncomplicated; Z79.01 Long term (current) use of anticoagulants; Z20.822 Contact with and (suspected) exposure to COVID-19
CPT/HCPCS: 36415; 71045; 74177; 80053; 81001; 83605; 83690; 84703; 85025; 85610; 85730; 87040; 93005; 96361; 96365; 96366; 96367; 96375; 96376; J0692; J2270; J2405; J2550; J3370; Q9967

== ENCOUNTER 2023-03-20 08:18 | Emergency (ER) | payer OTHER ==
[2023-03-20] MEDS ORDERED: Iopamidol-370 76% 500 ML MDV (1 ML CHARGE) ONE (08:34)
[2023-03-20 08:58] LABS: #Monocytes 0.3 thou/uL (0.11-0.59); #Neutrophils 10.2 thou/uL (1.40-6.50); %Basophils 0.2 % (0.0-1.0); %Lymphocytes 11.1 % (21.0-51.0); %Monocytes 2.6 % (0.0-10.0); %Neutrophils 85.8 % (42.0-75.0); Hematocrit 35.4 % (36.0-47.0); Hemoglobin 11.7 g/dL (12.0-16.0); Mean Corpuscular HGB CONC 33.1 g/dL (32.0-36.0); Mean Corpuscular Hemoglobin 28.3 pg (27.0-31.0); Mean Corpuscular Volume 85.7 fl (78.0-98.0); Mean Platelet Volume 10.6 fL (7.4-10.4); Platelet Count 471 10x3/uL (130-400); RBC Distribution Width 18.6 % (11.5-14.5); Red Blood Cell (RBC) Count 4.13 mill/uL (4.20-5.40); White Blood Cell (WBC) Count 11.8 10x3/uL (4.8-10.8)
[2023-03-20 09:23] LABS: ALT (SGPT) 7 U/L (8-55); AST (SGOT) 14 U/L (5-34); Albumin 5.1 g/dL (3.5-5.0); Alkaline Phosphatase 81 U/L (40-110); Anion Gap 23 mmol/L (10-20); BUN (Urea Nitrogen) 20 mg/dL (7.0-18.7); Bilirubin, Total 0.5 mg/dL (0.2-1.2); Calc. Creatinine Clearance 0 mL/min (70-130); Calcium 10.4 mg/dL (7.8-10.44); Carbon Dioxide 20 mmol/L (22-29); Chloride 97 mmol/L (98-107); Estimated GFR 68; Globulin 3.4 g/dL (2.4-3.5); Glucose 188 mg/dL (70-105); Lipase 26 U/L (8-78); Potassium 3.8 mmol/L (3.5-5.1); Protein, Total 8.5 g/dL (6.0-8.3); Sodium 136 mmol/L (136-145)
[2023-03-20 09:26] LABS: Troponin I Less than 0.010 ng/mL (< 0.028)
[2023-03-20] MEDS ORDERED: Morphine 4 MG/ML VIAL ONE (09:28)
[2023-03-20] MEDS ORDERED: Ondansetron PF 4 MG/2 ML Vial ONE (09:40)
[2023-03-20 10:38] LABS: Actual Bicarbonate (HCO3v) 22.3 mEq/L (22-28); Base Excess 0.9 mEq/L (-2.0 to +3.0); Calcium, Ionized (venous) 1.04 mmol/L (1.16-1.32); Chloride (VBG) 103 mmol/L (98-106); Hematocrit-VBG 34 % (36.0-47.0); Hemoglobin (Hb) 11.7 g/dL (11.7-15.5); Potassium (VBG) 3.41 mmol/L (3.70-5.30); Sodium 140 mmol/L (133-146); pH (venous) 7.547 (7.32-7.43)
[2023-03-20 10:57] LABS: BHCG - Serum Negative (NEGATIVE); Pregs Control Background? CLEAR/WHITE (CLR/WHITE); Pregs Control Bar Appear? YES (CONTROL BAR)
[2023-03-20 11:31] LABS: Bacteria/HPF None Seen HPF (None Seen); Bilirubin Negative (Negative); Blood, Urine Trace (Negative); CAUTI Indications for Culture Alt mental st,lethar; Clarity Clear (Clear); Glucose, Urine (Dipstick) 100 mg/dL (Negative); Ketone, Urine 40 mg/dL (Negative); Leukocyte 25 Leu/uL (Negative); Nitrite Negative (Negative); Protein, Urine (Dipstick) 50 mg/dL (Neg-Trace); RBC/HPF 0-3 HPF (0-3); Specific Gravity, Urine 1.022 (1.002-1.036); Urobilinogen Normal mg/dL (Less than 2); pH, Urine 7.5 (5.0-9.0)
[2023-03-20 11:33] LABS: Urine Culture Reflex No No
[2023-03-20] MEDS ORDERED: Metoclopramide HCl 10 MG/2 ML VIAL ONE (12:02)
[2023-03-20 12:13] LABS: Magnesium 1.4 mg/dL (1.6-2.6)
[2023-03-20] MEDS ORDERED: Cefepime 2 GM VIAL ONE (12:37)
[2023-03-20] MEDS ORDERED: Magnesium 2 GM/50 ML BAG (IN WATER) ONE (13:02)
[2023-03-20] MEDS ORDERED: fentaNYL 50 mcg/mL 1 mL Vial ONE (13:48)
[2023-03-20] MEDS ORDERED: diphenhydrAMINE 50 MG/ML VIAL ONE (14:14)
[2023-03-20 15:07] LABS: Anion Gap 17 mmol/L (10-20); BUN (Urea Nitrogen) 16 mg/dL (7.0-18.7); Calc. Creatinine Clearance 0 mL/min (70-130); Calcium 9.2 mg/dL (7.8-10.44); Carbon Dioxide 21 mmol/L (22-29); Chloride 101 mmol/L (98-107); Estimated GFR 100; Glucose 111 mg/dL (70-105); Potassium 3.5 mmol/L (3.5-5.1); Sodium 135 mmol/L (136-145)
== END 2023-03-20 16:04 | disposition home or self-care (01) ==
LOC: ERS 08:18
DX: N83.201 Unspecified ovarian cyst, right side (principal); I10 Essential (primary) hypertension; F17.210 Nicotine dependence, cigarettes, uncomplicated
CPT/HCPCS: 36416; 71045; 74177; 76856; 80053; 81001; 82010; 82805; 83690; 83735; 84484; 84703; 85025; 93005; 96361; 96365; 96367; 96372; 96375; J0692; J1200; J1790; J2270; J2405; J2765; J3010; J3475; Q9967

== ENCOUNTER 2023-04-03 08:20 | Emergency (ER) | payer OTHER ==
[2023-04-03] MEDS ORDERED: Famotidine/PF 20 mg/2ml Vial ONE (09:53)
[2023-04-03] MEDS ORDERED: Lidocaine 2% Viscous Solution 10 ML, Aluminum & Magnesium Hydroxide 30 ML SSW SCH (10:00)
[2023-04-03] MEDS ORDERED: Sucralfate 1 GM TAB PO SCH (10:00)
[2023-04-03] MEDS ORDERED: Promethazine HCl 25 MG in Sodium Chloride 0.9% 50 ML IVPB SCH (10:00)
[2023-04-03 10:05] LABS: #Basophils 0.1 thou/uL (0.0-0.2); #Eosinphils 0.1 thou/uL (0.0-0.7); #Monocytes 0.6 thou/uL (0.11-0.59); #Neutrophils 8.7 thou/uL (1.40-6.50); %Lymphocytes 23.6 % (21.0-51.0); %Monocytes 4.5 % (0.0-10.0); %Neutrophils 69.6 % (42.0-75.0); Hematocrit 32.8 % (36.0-47.0); Hemoglobin 10.4 g/dL (12.0-16.0); Mean Corpuscular HGB CONC 31.7 g/dL (32.0-36.0); Mean Corpuscular Hemoglobin 28.4 pg (27.0-31.0); Mean Corpuscular Volume 89.6 fl (78.0-98.0); Mean Platelet Volume 10.7 fL (7.4-10.4); Platelet Count 446 10x3/uL (130-400); RBC Distribution Width 18.8 % (11.5-14.5); Red Blood Cell (RBC) Count 3.66 mill/uL (4.20-5.40); White Blood Cell (WBC) Count 12.5 10x3/uL (4.8-10.8)
[2023-04-03 10:14] LABS: Bilirubin Negative (Negative); Blood, Urine Negative (Negative); Clarity Clear (Clear); Glucose, Urine (Dipstick) Normal (Negative); Ketone, Urine Negative (Negative); Leukocyte Negative Leu/uL (Negative); Nitrite Negative (Negative); Protein, Urine (Dipstick) 20 mg/dL (Neg-Trace); Specific Gravity, Urine 1.019 (1.002-1.036); Urobilinogen Normal mg/dL (Less than 2); pH, Urine 6.5 (5.0-9.0)
[2023-04-03] MEDS ORDERED: Ketorolac Tromethamine 30 MG/ML VIAL ONE (10:19)
[2023-04-03 10:20] LABS: BHCG - Serum Negative (NEGATIVE); Pregs Control Background? CLEAR/WHITE (CLR/WHITE); Pregs Control Bar Appear? YES (CONTROL BAR)
[2023-04-03 10:25] LABS: CAUTI Indications for Culture Acute Hematuria; RBC/HPF 0-3 HPF (0-3); Squamous Epithelial 0-3 HPF (0-3); WBC/HPF None Seen HPF (0-3)
[2023-04-03 10:26] LABS: Urine Culture Reflex No No
[2023-04-03 10:31] LABS: ALT (SGPT) 13 U/L (8-55); AST (SGOT) 15 U/L (5-34); Albumin 4.2 g/dL (3.5-5.0); Alkaline Phosphatase 81 U/L (40-110); Anion Gap 13 mmol/L (10-20); BUN (Urea Nitrogen) 13 mg/dL (7.0-18.7); Bilirubin, Total Less than 0.2 mg/dL (0.2-1.2); Calc. Creatinine Clearance 0 mL/min (70-130); Carbon Dioxide 27 mmol/L (22-29); Chloride 106 mmol/L (98-107); Estimated GFR 43; Globulin 2.9 g/dL (2.4-3.5); Glucose 75 mg/dL (70-105); Lipase 37 U/L (8-78); Magnesium 1.8 mg/dL (1.6-2.6); Potassium 4.6 mmol/L (3.5-5.1); Protein, Total 7.1 g/dL (6.0-8.3); Sodium 141 mmol/L (136-145)
[2023-04-03 11:25] LABS: Troponin I Less than 0.010 ng/mL (< 0.028)
[2023-04-04 14:30] LABS: Chlamydia by PCR, Vaginal Swab *Indeterminate (NotDetected); GC by PCR, Vaginal Swab *Indeterminate (NotDetected)
== END 2023-04-03 12:10 | disposition home or self-care (01) ==
LOC: ERS 08:20
DX: R10.84 Generalized abdominal pain (principal); R11.2 Nausea with vomiting, unspecified; I10 Essential (primary) hypertension; F17.200 Nicotine dependence, unspecified, uncomplicated; Z79.01 Long term (current) use of anticoagulants; Z79.899 Other long term (current) drug therapy
CPT/HCPCS: 76856; 80053; 81001; 83690; 83735; 84484; 84703; 85025; 87480; 87491; 87510; 87591; 87660; 96361; 96374; 96375; J1885; J2550; S0028

== ENCOUNTER 2023-11-12 11:00 | Emergency (ER) | payer SELFPAY ==
[2023-11-12 11:37] LABS: #Basophils 0.07 10x3/uL (0.0-0.2); %Basophils 0.8 % (0.0-1.0); %Lymphocytes 43.8 % (21.0-51.0); %Monocytes 7.1 % (0.0-10.0); %Neutrophils 46.1 % (42.0-75.0); Hematocrit 36.5 % (36.0-47.0); Hemoglobin 12.2 g/dL (12.0-16.0); Mean Corpuscular HGB CONC 33.4 g/dL (32.0-36.0); Mean Corpuscular Hemoglobin 32.1 pg (27.0-31.0); Mean Corpuscular Volume 96.1 fL (78.0-98.0); Mean Platelet Volume 10.5 fL (7.4-10.4); Platelet Count 326 10x3/uL (130-400); RBC Distribution Width 15.1 % (11.5-14.5)
[2023-11-12 11:59] LABS: ALT (SGPT) 10 U/L (8-55); AST (SGOT) 18 U/L (5-34); Albumin 3.6 g/dL (3.5-5.0); Alkaline Phosphatase 62 U/L (40-110); Anion Gap 16 mmol/L (10-20); BUN (Urea Nitrogen) 10 mg/dL (7.0-18.7); Bilirubin, Total 0.3 mg/dL (0.2-1.2); Calc. Creatinine Clearance 0 mL/min (70-130); Calcium 9.6 mg/dL (7.8-10.44); Carbon Dioxide 23 mmol/L (22-29); Chloride 104 mmol/L (98-107); Estimated GFR 54; Globulin 3.7 g/dL (2.4-3.5); Glucose 128 mg/dL (70-105); Potassium 3.8 mmol/L (3.5-5.1); Protein, Total 7.3 g/dL (6.0-8.3); Sodium 139 mmol/L (136-145)
[2023-11-12 12:05] LABS: Troponin I Less than 0.010 ng/mL (< 0.028)
[2023-11-12] MEDS ORDERED: Morphine 2 MG/ML VIAL ONE (13:37)
== END 2023-11-12 13:49 | disposition home or self-care (01) ==
LOC: ERS 11:00
DX: S92.512A Displaced fracture of proximal phalanx of left lesser toe(s), initial encounter for closed fracture (principal); R55 Syncope and collapse; R25.1 Tremor, unspecified; R56.9 Unspecified convulsions; I10 Essential (primary) hypertension; F17.200 Nicotine dependence, unspecified, uncomplicated; W01.10XA Fall on same level from slipping, tripping and stumbling with subsequent striking against unspecified object, initial encounter
CPT/HCPCS: 28510; 70450; 71045; 80053; 83605; 84484; 85025; 93005; 96374; J2272

== ENCOUNTER 2024-03-18 16:57 | Emergency (ER) | payer SELFPAY ==
[2024-03-18] MEDS ORDERED: Acetaminophen 500 MG TAB ONE (17:45)
[2024-03-18 18:30] LABS: #Basophils 0.08 10x3/uL (0.0-0.2); %Basophils 0.5 % (0.0-1.0); %Eosinophils 0.4 % (0.0-10.0); %Lymphocytes 10.9 % (21.0-51.0); %Monocytes 5.9 % (0.0-10.0); %Neutrophils 81.9 % (42.0-75.0); Hematocrit 36.4 % (36.0-47.0); Hemoglobin 11.4 g/dL (12.0-16.0); Mean Corpuscular HGB CONC 31.3 g/dL (32.0-36.0); Mean Corpuscular Volume 102.2 fL (78.0-98.0); Mean Platelet Volume 10.2 fL (7.4-10.4); Platelet Count 338 10x3/uL (130-400); RBC Distribution Width 14.6 % (11.5-14.5); Red Blood Cell (RBC) Count 3.56 mill/uL (4.20-5.40)
[2024-03-18 18:41] LABS: Amphetamine Not Detected (NotDetected); Barbiturates Screen Not Detected (NotDetected); Benzodiazepine Screen Detected (NotDetected); Bilirubin Negative (Negative); Blood, Urine Negative (Negative); CAUTI Indications for Culture Alt mental st,lethar; Clarity Clear (Clear); Cocaine Metabolite Screen Not Detected (NotDetected); Glucose, Urine (Dipstick) Normal (Negative); Ketone, Urine Negative (Negative); Leukocyte 25 Leu/uL (Negative); Methadone Not Detected (NotDetected); Methamphetamine Not Detected (NotDetected); Nitrite Negative (Negative); Opiate Screen Not Detected (NotDetected); Oxycodone Screen Not Detected (NotDetected); Phencyclidine (PCP) Not Detected (NotDetected); Protein, Urine (Dipstick) 50 mg/dL (Neg-Trace); RBC/HPF 0-3 HPF (0-3); Specific Gravity, Urine 1.024 (1.002-1.036); THC/Cannabinoid Screen Detected (NotDetected); Tricyclic Screen Detected (NotDetected); Urobilinogen Normal mg/dL (Less than 2)
[2024-03-18 18:44] LABS: BHCG - Serum Negative (NEGATIVE); Pregs Control Background? CLEAR/WHITE (CLR/WHITE); Pregs Control Bar Appear? YES (CONTROL BAR)
[2024-03-18 18:46] LABS: ALT (SGPT) 9 U/L (8-55); AST (SGOT) 18 U/L (5-34); Acetaminophen Less than 10 mcg/mL (Less than 10); Albumin 3.5 g/dL (3.5-5.0); Alcohol Less than 10.0 mg/dL (Less than 10); Alkaline Phosphatase 61 U/L (40-110); Anion Gap 14 mmol/L (10-20); BUN (Urea Nitrogen) 14 mg/dL (7.0-18.7); Bilirubin, Total 0.1 mg/dL (0.2-1.2); Calc. Creatinine Clearance 0 mL/min (70-130); Calcium 9.4 mg/dL (7.8-10.44); Carbon Dioxide 22 mmol/L (22-29); Chloride 108 mmol/L (98-107); Estimated GFR 79; Glucose 69 mg/dL (70-105); Potassium 3.7 mmol/L (3.5-5.1); Protein, Total 6.5 g/dL (6.0-8.3); Salicylate Less than 8.0 mg/dL (Less than 8.0); Sodium 140 mmol/L (136-145)
[2024-03-18] MEDS ORDERED: Ketorolac Tromethamine 30 MG (1 mL) VIAL ONE (18:49)
[2024-03-18 18:50] LABS: Bacteria/HPF 1+ HPF (None Seen)
[2024-03-18 18:50] LABS: Troponin I Less than 0.010 ng/mL (< 0.028)
[2024-03-18 18:55] LABS: Urine Culture Reflex No No
[2024-03-18] MEDS ORDERED: Morphine 4 MG/ML VIAL ONE (19:51)
== END 2024-03-18 20:05 | disposition home or self-care (01) ==
LOC: ERS 16:57
DX: S02.40FA Zygomatic fracture, left side, initial encounter for closed fracture (principal); S00.12XA Contusion of left eyelid and periocular area, initial encounter; R55 Syncope and collapse; W01.190A Fall on same level from slipping, tripping and stumbling with subsequent striking against furniture, initial encounter; Y93.89 Activity, other specified
CPT/HCPCS: 36415; 70450; 72125; 80053; 80306; 80307; 81001; 84443; 84484; 84703; 85025; 93005; 96374; 96375; J1885; J2272

== ENCOUNTER 2024-03-23 07:10 | Emergency (ER) | payer SELFPAY ==
[2024-03-23 08:03] LABS: #Basophils 0.13 10x3/uL (0.0-0.2); %Basophils 1.3 % (0.0-1.0); %Lymphocytes 29.6 % (21.0-51.0); %Neutrophils 60.5 % (42.0-75.0); Hematocrit 35.9 % (36.0-47.0); Hemoglobin 11.7 g/dL (12.0-16.0); Mean Corpuscular HGB CONC 32.6 g/dL (32.0-36.0); Mean Corpuscular Hemoglobin 31.5 pg (27.0-31.0); Mean Corpuscular Volume 96.8 fL (78.0-98.0); Mean Platelet Volume 10.6 fL (7.4-10.4); Platelet Count 404 10x3/uL (130-400); Red Blood Cell (RBC) Count 3.71 mill/uL (4.20-5.40)
[2024-03-23] MEDS ORDERED: Acetaminophen 500 MG TAB ONE (08:33)
[2024-03-23 09:21] LABS: BHCG - Serum Negative (NEGATIVE); Pregs Control Background? CLEAR/WHITE (CLR/WHITE); Pregs Control Bar Appear? YES (CONTROL BAR)
[2024-03-23 09:27] LABS: Acetaminophen Less than 10 mcg/mL (Less than 10); Alcohol Less than 10.0 mg/dL (Less than 10); Salicylate Less than 8.0 mg/dL (Less than 8.0)
[2024-03-23 09:28] LABS: ALT (SGPT) 10 U/L (8-55); AST (SGOT) 17 U/L (5-34); Albumin 3.8 g/dL (3.5-5.0); Alkaline Phosphatase 65 U/L (40-110); Anion Gap 15 mmol/L (10-20); BUN (Urea Nitrogen) 10 mg/dL (7.0-18.7); Bilirubin, Total 0.2 mg/dL (0.2-1.2); Calc. Creatinine Clearance 0 mL/min (70-130); Calcium 9.5 mg/dL (7.8-10.44); Carbon Dioxide 25 mmol/L (22-29); Chloride 105 mmol/L (98-107); Estimated GFR 73; Globulin 3.1 g/dL (2.4-3.5); Glucose 87 mg/dL (70-105); Potassium 4.7 mmol/L (3.5-5.1); Protein, Total 6.9 g/dL (6.0-8.3); Sodium 140 mmol/L (136-145)
[2024-03-23 09:33] LABS: Troponin I Less than 0.010 ng/mL (< 0.028)
[2024-03-23] MEDS ORDERED: Morphine 4 MG/ML VIAL ONE (09:42)
[2024-03-23 09:46] LABS: Bacteria/HPF 1+ HPF (None Seen); Bilirubin Negative (Negative); Blood, Urine Negative (Negative); CAUTI Indications for Culture Acute Hematuria; Clarity Clear (Clear); Glucose, Urine (Dipstick) Normal (Negative); Ketone, Urine Negative (Negative); Leukocyte Negative Leu/uL (Negative); Nitrite Negative (Negative); Protein, Urine (Dipstick) Negative (Neg-Trace); RBC/HPF 0-3 HPF (0-3); Specific Gravity, Urine 1.002 (1.002-1.036); Squamous Epithelial 0-3 HPF (0-3); Urobilinogen Normal mg/dL (Less than 2); WBC/HPF 0-3 HPF (0-3); pH, Urine 6.5 (5.0-9.0)
[2024-03-23 09:47] LABS: Urine Culture Reflex No No
[2024-03-23 09:58] LABS: Amphetamine Not Detected (NotDetected); Barbiturates Screen Not Detected (NotDetected); Benzodiazepine Screen Detected (NotDetected); Cocaine Metabolite Screen Not Detected (NotDetected); Methadone Not Detected (NotDetected); Methamphetamine Not Detected (NotDetected); Opiate Screen Not Detected (NotDetected); Oxycodone Screen Not Detected (NotDetected); Phencyclidine (PCP) Not Detected (NotDetected); THC/Cannabinoid Screen Not Detected (NotDetected); Tricyclic Screen Detected (NotDetected)
[2024-03-23] MEDS ORDERED: Lorazepam 2 MG/ML VIAL ONE (10:55)
== END 2024-03-23 11:43 | disposition home or self-care (01) ==
LOC: ERS 07:10
DX: S80.211A Abrasion, right knee, initial encounter (principal); R55 Syncope and collapse; I10 Essential (primary) hypertension; F90.9 Attention-deficit hyperactivity disorder, unspecified type; F17.200 Nicotine dependence, unspecified, uncomplicated; W01.198A Fall on same level from slipping, tripping and stumbling with subsequent striking against other object, initial encounter; Y93.89 Activity, other specified; Z79.899 Other long term (current) drug therapy
CPT/HCPCS: 36415; 36416; 70450; 71046; 72125; 80053; 80306; 80307; 81001; 84484; 84703; 85025; 93005; 96374; 96375; J2060; J2272

== ENCOUNTER 2024-04-28 00:36 | Emergency (ER) | payer SELFPAY ==
[2024-04-28 01:08] LABS: #Basophils 0.05 10x3/uL (0.0-0.2); #Eosinophils Less than 0.03 10x3/uL (0.0-0.7); %Basophils 0.5 % (0.0-1.0); %Lymphocytes 15.5 % (21.0-51.0); %Monocytes 2.4 % (0.0-10.0); %Neutrophils 81.1 % (42.0-75.0); Hematocrit 40.3 % (36.0-47.0); Hemoglobin 13.1 g/dL (12.0-16.0); Mean Corpuscular HGB CONC 32.5 g/dL (32.0-36.0); Mean Corpuscular Hemoglobin 31.3 pg (27.0-31.0); Mean Corpuscular Volume 96.4 fL (78.0-98.0); Mean Platelet Volume 10.5 fL (7.4-10.4); Platelet Count 408 10x3/uL (130-400); RBC Distribution Width 13.1 % (11.5-14.5); Red Blood Cell (RBC) Count 4.18 mill/uL (4.20-5.40)
[2024-04-28 01:24] LABS: ALT (SGPT) 10 U/L (8-55); AST (SGOT) 17 U/L (5-34); Albumin 4.5 g/dL (3.5-5.0); Alkaline Phosphatase 81 U/L (40-110); Anion Gap 19 mmol/L (10-20); BUN (Urea Nitrogen) 12 mg/dL (7.0-18.7); Bilirubin, Total 0.4 mg/dL (0.2-1.2); Calc. Creatinine Clearance 0 mL/min (70-130); Calcium 9.5 mg/dL (7.8-10.44); Carbon Dioxide 20 mmol/L (22-29); Chloride 103 mmol/L (98-107); Estimated GFR 78; Globulin 3.9 g/dL (2.4-3.5); Glucose 167 mg/dL (70-105); Lipase 37 U/L (8-78); Potassium 3.6 mmol/L (3.5-5.1); Protein, Total 8.4 g/dL (6.0-8.3); Sodium 138 mmol/L (136-145)
[2024-04-28 01:29] LABS: Troponin I Less than 0.010 ng/mL (< 0.028)
[2024-04-28 01:52] LABS: Acetaminophen Less than 10 mcg/mL (Less than 10); Alcohol Less than 10.0 mg/dL (Less than 10); Salicylate Less than 8.0 mg/dL (Less than 8.0)
[2024-04-28 01:55] LABS: BHCG - Serum Negative (NEGATIVE); Pregs Control Background? CLEAR/WHITE (CLR/WHITE); Pregs Control Bar Appear? YES (CONTROL BAR)
[2024-04-28] MEDS ORDERED: Morphine 4 MG/ML VIAL ONE (02:28)
[2024-04-28] MEDS ORDERED: Ondansetron PF 4 MG/2 ML Vial ONE (02:29)
[2024-04-28] MEDS ORDERED: Lidocaine Viscous Sol 2% 15 ml UD Cup ONE (03:11)
[2024-04-28] MEDS ORDERED: Mag-Al 1200 mg/1200 mg/30 ML UDCUP ONE (03:11)
[2024-04-28] MEDS ORDERED: Famotidine/PF 20 mg/2ml Vial ONE (03:12)
[2024-04-28 04:38] LABS: Bacteria/HPF None Seen HPF (None Seen); Bilirubin Negative (Negative); Blood, Urine 2+ (Negative); CAUTI Indications for Culture Alt mental st,lethar; Clarity Clear (Clear); Glucose, Urine (Dipstick) 100 mg/dL (Negative); Ketone, Urine Trace mg/dL (Negative); Leukocyte 25 Leu/uL (Negative); Nitrite Negative (Negative); Protein, Urine (Dipstick) 200 mg/dL (Neg-Trace); Specific Gravity, Urine 1.025 (1.002-1.036); Urobilinogen Normal mg/dL (Less than 2); pH, Urine 6.5 (5.0-9.0)
[2024-04-28 04:42] LABS: Amphetamine Not Detected (NotDetected); Barbiturates Screen Not Detected (NotDetected); Benzodiazepine Screen Detected (NotDetected); Cocaine Metabolite Screen Not Detected (NotDetected); Methadone Not Detected (NotDetected); Methamphetamine Not Detected (NotDetected); Opiate Screen Detected (NotDetected); Oxycodone Screen Not Detected (NotDetected); Phencyclidine (PCP) Not Detected (NotDetected); THC/Cannabinoid Screen Not Detected (NotDetected); Tricyclic Screen Detected (NotDetected)
[2024-04-28] MEDS ORDERED: Lorazepam 2 MG/ML VIAL ONE (04:43)
[2024-04-28] MEDS ORDERED: Morphine 2 MG/ML VIAL ONE (04:43)
[2024-04-28 04:45] LABS: Urine Culture Reflex No No
== END 2024-04-28 06:22 | disposition home or self-care (01) ==
LOC: ERS 00:36
DX: R11.2 Nausea with vomiting, unspecified (principal); I10 Essential (primary) hypertension; F17.200 Nicotine dependence, unspecified, uncomplicated
CPT/HCPCS: 36415; 70450; 71045; 80053; 80306; 80307; 81001; 83690; 84484; 84703; 85025; 93005; 94760; 96374; 96375; 96376; J2060; J2272; J2405; J3490

== ENCOUNTER 2024-04-30 12:47 | Emergency (ER) | payer SELFPAY ==
[~2024-04-30 12:47] MED LIST changes: -Iopamidol 370 76% 100 ML VIAL ONE; +Iopamidol-370 76% 500 ML MDV (1 ML CHARGE) ONE
[2024-04-30 14:19] LABS: #Basophils 0.03 10x3/uL (0.0-0.2); #Eosinophils Less than 0.03 10x3/uL (0.0-0.7); %Basophils 0.3 % (0.0-1.0); %Eosinophils 0.1 % (0.0-10.0); %Lymphocytes 30.9 % (21.0-51.0); %Monocytes 9.8 % (0.0-10.0); %Neutrophils 58.6 % (42.0-75.0); Hematocrit 44.9 % (36.0-47.0); Hemoglobin 15.1 g/dL (12.0-16.0); Mean Corpuscular HGB CONC 33.6 g/dL (32.0-36.0); Mean Corpuscular Hemoglobin 31.5 pg (27.0-31.0); Mean Corpuscular Volume 93.7 fL (78.0-98.0); Mean Platelet Volume 10.4 fL (7.4-10.4); Platelet Count 431 10x3/uL (130-400); RBC Distribution Width 12.7 % (11.5-14.5); Red Blood Cell (RBC) Count 4.79 mill/uL (4.20-5.40)
[2024-04-30 14:42] LABS: BHCG - Serum Negative (NEGATIVE); Pregs Control Background? CLEAR/WHITE (CLR/WHITE); Pregs Control Bar Appear? YES (CONTROL BAR)
[2024-04-30 14:44] LABS: ALT (SGPT) 13 U/L (8-55); AST (SGOT) 22 U/L (5-34); Albumin 4.4 g/dL (3.5-5.0); Alkaline Phosphatase 84 U/L (40-110); Anion Gap 14 mmol/L (10-20); BUN (Urea Nitrogen) 16 mg/dL (7.0-18.7); Bilirubin, Total 0.3 mg/dL (0.2-1.2); Calc. Creatinine Clearance 0 mL/min (70-130); Carbon Dioxide 27 mmol/L (22-29); Chloride 98 mmol/L (98-107); Estimated GFR 76; Globulin 4.3 g/dL (2.4-3.5); Glucose 110 mg/dL (70-105); Lipase 100 U/L (8-78); Potassium 3.4 mmol/L (3.5-5.1); Protein, Total 8.7 g/dL (6.0-8.3); Sodium 136 mmol/L (136-145)
[2024-04-30 14:46] LABS: Troponin I Less than 0.010 ng/mL (< 0.028)
[2024-04-30] MEDS ORDERED: Pantoprazole 40 MG VIAL ONE (16:12)
[2024-04-30] MEDS ORDERED: Ketorolac Tromethamine 30 MG (1 mL) VIAL ONE (16:12)
[2024-04-30] MEDS ORDERED: Ondansetron PF 4 MG/2 ML Vial ONE (16:12)
[2024-04-30 17:03] LABS: Bilirubin Negative (Negative); Blood, Urine 2+ (Negative); CAUTI Indications for Culture Pelvic or flank pain; Clarity Turbid (Clear); Glucose, Urine (Dipstick) Normal (Negative); Ketone, Urine Trace mg/dL (Negative); Leukocyte 25 Leu/uL (Negative); Nitrite Negative (Negative); Protein, Urine (Dipstick) 100 mg/dL (Neg-Trace); Specific Gravity, Urine 1.027 (1.002-1.036); Urobilinogen Normal mg/dL (Less than 2)
[2024-04-30 17:04] LABS: Bacteria/HPF 1+ HPF (None Seen); Urine Culture Reflex No No
[2024-04-30] MEDS ORDERED: Promethazine HCl 25 MG/ML VIAL ONE (17:36)
[2024-04-30 17:39] LABS: Digoxin 0.57 ng/mL (0.8-2.0)
[2024-04-30] MEDS ORDERED: Morphine 4 MG/ML VIAL ONE (18:32)
[2024-04-30] MEDS ORDERED: Mag-Al 1200 mg/1200 mg/30 ML UDCUP ONE (18:39)
[2024-04-30] MEDS ORDERED: Lidocaine Viscous Sol 2% 15 ml UD Cup ONE (18:42)
[2024-04-30] MEDS ORDERED: Lidocaine 10 ML, Aluminum & Magnesium Hydroxide 30 ML SSW SCH (19:00)
== END 2024-04-30 19:35 | disposition home or self-care (01) ==
LOC: ERS 12:47
DX: R11.2 Nausea with vomiting, unspecified (principal); R10.13 Epigastric pain; F17.200 Nicotine dependence, unspecified, uncomplicated
CPT/HCPCS: 36415; 74177; 80053; 80162; 81001; 83690; 84484; 84703; 85025; 93005; 96361; 96365; 96375; J1885; J2272; J2405; J2470; J2550

== ENCOUNTER 2024-06-02 05:38 | Inpatient (IN) | payer MEDICAID, OTHER, SELFPAY ==
[2024-06-02 06:17] LABS: #Basophils 0.08 10x3/uL (0.0-0.2); %Basophils 0.5 % (0.0-1.0); %Eosinophils 0.2 % (0.0-10.0); %Lymphocytes 37.1 % (21.0-51.0); %Neutrophils 53.9 % (42.0-75.0); Hematocrit 40.5 % (36.0-47.0); Hemoglobin 13.5 g/dL (12.0-16.0); Mean Corpuscular HGB CONC 33.3 g/dL (32.0-36.0); Mean Corpuscular Hemoglobin 31.6 pg (27.0-31.0); Mean Corpuscular Volume 94.8 fL (78.0-98.0); Mean Platelet Volume 10.2 fL (7.4-10.4); Platelet Count 467 10x3/uL (130-400); RBC Distribution Width 13.6 % (11.5-14.5); Red Blood Cell (RBC) Count 4.27 mill/uL (4.20-5.40)
[2024-06-02] MEDS ORDERED: Ketorolac Tromethamine 30 MG (1 mL) VIAL ONE (06:34)
[2024-06-02] MEDS ORDERED: Acetaminophen 500 MG TAB ONE (06:34)
[2024-06-02] MEDS ORDERED: Ondansetron PF 4 MG/2 ML Vial ONE (06:35)
[2024-06-02 06:54] LABS: BHCG - Serum Negative (NEGATIVE); Pregs Control Background? CLEAR/WHITE (CLR/WHITE); Pregs Control Bar Appear? YES (CONTROL BAR)
[2024-06-02 07:08] LABS: ALT (SGPT) 13 U/L (8-55); AST (SGOT) 17 U/L (5-34); Albumin 3.9 g/dL (3.5-5.0); Alkaline Phosphatase 78 U/L (40-110); Anion Gap 16 mmol/L (10-20); BUN (Urea Nitrogen) 9 mg/dL (7.0-18.7); Bilirubin, Total 0.4 mg/dL (0.2-1.2); Calc. Creatinine Clearance 0 mL/min (70-130); Calcium 9.4 mg/dL (7.8-10.44); Carbon Dioxide 20 mmol/L (22-29); Chloride 106 mmol/L (98-107); Estimated GFR 79; Glucose 121 mg/dL (70-105); Lipase 49 U/L (8-78); Potassium 3.9 mmol/L (3.5-5.1); Protein, Total 7.9 g/dL (6.0-8.3); Sodium 138 mmol/L (136-145)
[2024-06-02 07:10] LABS: Troponin I Less than 0.010 ng/mL (< 0.028)
[2024-06-02] MEDS ORDERED: Promethazine HCl 25 MG/ML VIAL ONE (07:23)
[2024-06-02 07:32] LABS: Acetaminophen Less than 10 mcg/mL (Less than 10); Alcohol 10.4 mg/dL (Less than 10); Salicylate Less than 8.0 mg/dL (Less than 8.0)
[2024-06-02] MEDS ORDERED: Lorazepam 2 MG/ML VIAL ONE ×2 (07:57→10:24)
[2024-06-02] MEDS ORDERED: Metoclopramide HCl 10 MG (2 mL) VIAL ONE (10:24)
[2024-06-02] MEDS ORDERED: diphenhydrAMINE 50 MG/ML VIAL ONE (10:24)
[2024-06-02] MEDS ORDERED: Morphine 2 MG/ML VIAL ONE (10:50)
[2024-06-02 10:59] LABS: Bilirubin Negative (Negative); Blood, Urine Trace (Negative); CAUTI Indications for Culture Pelvic or flank pain; Glucose, Urine (Dipstick) 30 mg/dL (Negative); Ketone, Urine Trace mg/dL (Negative); Leukocyte 75 Leu/uL (Negative); Nitrite Negative (Negative); Protein, Urine (Dipstick) 50 mg/dL (Neg-Trace); Specific Gravity, Urine 1.022 (1.002-1.036); Urobilinogen Normal mg/dL (Less than 2); WBC/HPF 21-50 HPF (0-3)
[2024-06-02 11:00] LABS: Amphetamine Not Detected (NotDetected); Bacteria/HPF 1+ HPF (None Seen); Barbiturates Screen Not Detected (NotDetected); Benzodiazepine Screen Detected (NotDetected); Clarity Hazy (Clear); Cocaine Metabolite Screen Not Detected (NotDetected); Methadone Not Detected (NotDetected); Methamphetamine Not Detected (NotDetected); Opiate Screen Detected (NotDetected); Oxycodone Screen Not Detected (NotDetected); Phencyclidine (PCP) Not Detected (NotDetected); THC/Cannabinoid Screen Not Detected (NotDetected); Tricyclic Screen Detected (NotDetected)
[2024-06-02 11:02] LABS: Urine Culture Reflex Yes Yes
[2024-06-02] MEDS ORDERED: hydrALAZINE 20 MG/ML VIAL ONE ×2 (11:10→13:05)
[2024-06-02 13:47] VITALS: BMI 22.9
[2024-06-02] MEDS ORDERED: Promethazine HCl 12.5 MG in Sodium Chloride 0.9% 50 ML IVPB SCH (14:00)
[2024-06-02] MEDS: Promethazine HCl 12.5 MG in Sodium Chloride 0.9% 50 ML IVPB SCH (15:53)
[2024-06-02] MEDS: FLU (Fluarix Triv) TS24-25(6MOS UP)/PF 45 MCG/0.5 ML Syringe IM ONE (15:58)
[2024-06-02] MEDS ORDERED: Lorazepam 1 MG TAB PO PRN (16:04)
[2024-06-02] MEDS ORDERED: Labetalol HCl 100 MG/20 ML VIAL SLOW IVP PRN (16:08)
[2024-06-02] MEDS ORDERED: Dicyclomine 20 MG TAB PO PRN (16:23)
[2024-06-02] MEDS ORDERED: Simethicone Chewable 80 MG TAB PO PRN (16:23)
[2024-06-02] MEDS ORDERED: Calcium Carbonate 500 MG ChewTAB PO PRN (16:23)
[2024-06-02] MEDS: Diazepam 5 MG TAB PO SCH (16:24)
[2024-06-02] MEDS: Morphine 2 MG/ML VIAL SLOW IVP SCH (16:24)
[2024-06-02 16:26] LABS: Digoxin 0.27 ng/mL (0.8-2.0)
[2024-06-02 16:32] LABS: Troponin I Less than 0.010 ng/mL (< 0.028)
[2024-06-02] MEDS ORDERED: Metoclopramide HCl 10 MG TAB PO PRN (18:43)
[2024-06-02 19:42] LABS: Bacteria/HPF None Seen HPF (None Seen); Bilirubin Negative (Negative); Blood, Urine Trace (Negative); Clarity Clear (Clear); Glucose, Urine (Dipstick) 70 mg/dL (Negative); Ketone, Urine 10 mg/dL (Negative); Leukocyte Negative Leu/uL (Negative); Nitrite Negative (Negative); Protein, Urine (Dipstick) 50 mg/dL (Neg-Trace); RBC/HPF 0-3 HPF (0-3); Specific Gravity, Urine 1.014 (1.002-1.036); Squamous Epithelial 0-3 HPF (0-3); Urobilinogen Normal mg/dL (Less than 2); WBC/HPF 0-3 HPF (0-3); pH, Urine 6.5 (5.0-9.0)
[2024-06-02] MEDS: Lorazepam 2 MG/ML VIAL SLOW IVP PRN (19:53)
[2024-06-02] MEDS: Metoclopramide HCl 10 MG (2 mL) VIAL IVP PRN (19:53)
[2024-06-02] MEDS: Atenolol 50 MG TAB PO SCH (19:58)
[2024-06-02] MEDS: QUEtiapine 200 MG TAB PO SCH (19:59)
[2024-06-03 03:52] LABS: #Basophils 0.05 10x3/uL (0.0-0.2); #Eosinophils Less than 0.03 10x3/uL (0.0-0.7); %Basophils 0.4 % (0.0-1.0); %Eosinophils 0.1 % (0.0-10.0); %Lymphocytes 29.9 % (21.0-51.0); %Monocytes 9.2 % (0.0-10.0); Hemoglobin 12.7 g/dL (12.0-16.0); Mean Corpuscular HGB CONC 33.4 g/dL (32.0-36.0); Mean Corpuscular Hemoglobin 32.1 pg (27.0-31.0); Mean Platelet Volume 10.3 fL (7.4-10.4); Platelet Count 382 10x3/uL (130-400); Red Blood Cell (RBC) Count 3.96 mill/uL (4.20-5.40)
[2024-06-03] MEDS: Morphine 2 MG/ML VIAL SLOW IVP SCH (04:07)
[2024-06-03 04:34] LABS: ALT (SGPT) 11 U/L (8-55); AST (SGOT) 15 U/L (5-34); Albumin 3.7 g/dL (3.5-5.0); Alkaline Phosphatase 69 U/L (40-110); Anion Gap 16 mmol/L (10-20); BUN (Urea Nitrogen) 14 mg/dL (7.0-18.7); Bilirubin, Total 0.5 mg/dL (0.2-1.2); Calc. Creatinine Clearance 97 mL/min (70-130); Carbon Dioxide 23 mmol/L (22-29); Chloride 105 mmol/L (98-107); Estimated GFR 100; Globulin 3.7 g/dL (2.4-3.5); Glucose 98 mg/dL (70-105); Potassium 3.6 mmol/L (3.5-5.1); Protein, Total 7.4 g/dL (6.0-8.3); Sodium 140 mmol/L (136-145)
[2024-06-03] MEDS: FLUoxetine HCl 20 MG CAP PO SCH (08:56)
[2024-06-03] MEDS: Digoxin 0.125 MG TAB PO SCH (08:56)
[2024-06-03] MEDS: Pantoprazole 40 MG DR.TAB PO SCH (08:57)
[2024-06-03] MEDS: BuPROPion XL 150 MG ER.TAB PO SCH (08:57)
[2024-06-03] MEDS: diphenhydrAMINE 25 MG CAP PO SCH (09:28)
[2024-06-03] MEDS: Acetaminophen 500 MG TAB PO SCH (09:28)
[2024-06-03] MEDS: QUEtiapine 200 MG TAB PO SCH (13:56)
[2024-06-03] MEDS: clonazePAM 0.5 MG TAB PO SCH (13:56)
[2024-06-03] MEDS: Acetaminophen 325 MG TAB PO PRN (13:59)
[2024-06-03] MEDS: Diazepam 5 MG TAB PO SCH (20:28)
[2024-06-04] MEDS: Ibuprofen 100 MG/5 ML UDCUP PO SCH (06:29)
[2024-06-04] MEDS: Metoclopramide HCl 10 MG (2 mL) VIAL IVP SCH (11:41)
[2024-06-04] MEDS: diphenhydrAMINE 50 MG/ML VIAL IVP SCH (11:41)
[2024-06-04 12:11] VITALS: BMI 22.9
[2024-06-04 12:23] VITALS: BP 97/61; TEMP 97.7
[2024-06-04] MEDS: Fioricet 325/50/40 mg Tablet PO PRN (14:12)
== END 2024-06-04 15:15 | disposition home or self-care (01) | DRG 305 ==
LOC: ERS 05:38 → OBS 13:43 → OBSVTOIN 06-04 10:06
PROVIDERS: ADMIT Internal Medicine; ATTEND Internal Medicine
DX: I16.0 Hypertensive urgency (principal); Q79.60 Ehlers-Danlos syndrome, unspecified; I34.1 Nonrheumatic mitral (valve) prolapse; G43.909 Migraine, unspecified, not intractable, without status migrainosus; I12.9 Hypertensive chronic kidney disease with stage 1 through stage 4 chronic kidney disease, or unspecified chronic kidney disease; F41.1 Generalized anxiety disorder; F90.9 Attention-deficit hyperactivity disorder, unspecified type; F32.9 Major depressive disorder, single episode, unspecified; N18.31 Chronic kidney disease, stage 3a; Z88.8 Allergy status to other drugs, medicaments and biological substances; Z91.012 Allergy to eggs; Z79.899 Other long term (current) drug therapy; Z90.89 Acquired absence of other organs
CPT/HCPCS: 36415; 70450; 71045; 80053; 80162; 80306; 80307; 81001; 83690; 84484; 84703; 85025; 87086; 93005; 96361; 96365; 96374; 96375; 96376; G0378; J0360; J1200; J1885; J2060; J2272; J2405; J2550; J2765

== ENCOUNTER 2024-09-13 09:57 | Outpatient (CLI) | payer OTHER | END 2024-09-13 09:58 | disposition home or self-care (01) | LOC: SCSMRI 09:57 → MRI 09:58 | PROVIDERS: ATTEND Family Medicine | DX: H57.04 Mydriasis (principal); R90.82 White matter disease, unspecified; Z91.81 History of falling | CPT/HCPCS: 70553; 76014; 76376 ==

== ENCOUNTER 2024-11-20 16:44 | Inpatient (IN) | payer OTHER ==
[2024-11-20 18:15] LABS: #Basophils 0.07 10x3/uL (0.0-0.2); #Eosinophils 0.16 10x3/uL (0.0-0.7); #Monocytes 0.45 10x3/uL (0.11-0.59); #Neutrophils 5.08 10x3/uL (1.40-6.50); %Basophils 0.7 % (0.0-1.0); %Eosinophils 1.7 % (0.0-10.0); %Lymphocytes 38.9 % (21.0-51.0); %Monocytes 4.8 % (0.0-10.0); %Neutrophils 53.8 % (42.0-75.0); Hematocrit 40.0 % (36.0-47.0); Hemoglobin 13.1 g/dL (12.0-16.0); Mean Corpuscular Hemoglobin 30.5 pg (27.0-31.0); Mean Corpuscular Volume 93.2 fL (78.0-98.0); Platelet Count 265 10x3/uL (130-400); Red Blood Cell (RBC) Count 4.29 mill/uL (4.20-5.40); White Blood Cell (WBC) Count 9.44 10x3/uL (4.8-10.8)
[2024-11-20] MEDS ORDERED: Ketorolac Tromethamine 30 MG (1 mL) VIAL ONE (18:20)
[2024-11-20] MEDS ORDERED: Ondansetron PF 4 MG/2 ML Vial ONE ×2 (18:20→19:16)
[2024-11-20 18:29] LABS: BHCG - Serum Negative (NEGATIVE); Pregs Control Background? CLEAR/WHITE (CLR/WHITE); Pregs Control Bar Appear? YES (CONTROL BAR)
[2024-11-20 18:51] LABS: ALT (SGPT) 7 U/L (Less than 34); AST (SGOT) 27 U/L (11-34); Albumin 4.3 g/dL (3.1-4.5); Alkaline Phosphatase 69 U/L (40-110); Anion Gap 15 mmol/L (10-20); BUN (Urea Nitrogen) 17 mg/dL (7.0-18.7); Bilirubin, Total 0.3 mg/dL (0.3-1.2); Calc. Creatinine Clearance 0 mL/min (70-130); Calcium 8.9 mg/dL (7.8-10.44); Carbon Dioxide 19 mmol/L (22-29); Chloride 106 mmol/L (98-107); Globulin 3.8 g/dL (2.4-3.5); Glucose 114 mg/dL (70-105); Potassium 4.2 mmol/L (3.5-5.1); Sodium 136 mmol/L (136-145)
[2024-11-20 18:52] LABS: Troponin I Less than 0.010 ng/mL (< 0.028)
[2024-11-20 18:54] LABS: Lipase 333 U/L (8-78)
[2024-11-20] MEDS ORDERED: Calcium Carbonate 500 MG ChewTAB PO PRN (20:57)
[2024-11-20] MEDS ORDERED: diphenhydrAMINE 50 MG/ML VIAL ONE (21:53)
[2024-11-20 23:05] VITALS: BMI 24.8
[2024-11-21] MEDS: Ondansetron PF 4 MG/2 ML Vial IVP PRN (01:26)
[2024-11-21 05:05] LABS: #Basophils 0.06 10x3/uL (0.0-0.2); #Eosinophils 0.23 10x3/uL (0.0-0.7); #Monocytes 0.57 10x3/uL (0.11-0.59); #Neutrophils 4.08 10x3/uL (1.40-6.50); %Basophils 0.6 % (0.0-1.0); %Eosinophils 2.5 % (0.0-10.0); %Lymphocytes 46.6 % (21.0-51.0); %Monocytes 6.1 % (0.0-10.0); %Neutrophils 44.0 % (42.0-75.0); Hematocrit 35.2 % (36.0-47.0); Hemoglobin 11.1 g/dL (12.0-16.0); Mean Corpuscular Hemoglobin 30.8 pg (27.0-31.0); Mean Corpuscular Volume 97.8 fL (78.0-98.0); Platelet Count 248 10x3/uL (130-400); Red Blood Cell (RBC) Count 3.60 mill/uL (4.20-5.40); White Blood Cell (WBC) Count 9.28 10x3/uL (4.8-10.8)
[2024-11-21 06:15] LABS: ALT (SGPT) 7 U/L (Less than 34); AST (SGOT) 20 U/L (11-34); Albumin 3.3 g/dL (3.1-4.5); Alkaline Phosphatase 53 U/L (40-110); Anion Gap 10 mmol/L (10-20); BUN (Urea Nitrogen) 15 mg/dL (7.0-18.7); Bilirubin, Total 0.1 mg/dL (0.3-1.2); Calc. Creatinine Clearance 74 mL/min (70-130); Calcium 7.8 mg/dL (7.8-10.44); Carbon Dioxide 16 mmol/L (22-29); Cardiac Risk 7.0 (Less than 4.5); Chloride 113 mmol/L (98-107); Cholesterol 175 mg/dl (< 200 Desired); Globulin 2.8 g/dL (2.4-3.5); Glucose 72 mg/dL (70-105); HDL Cholesterol 25 mg/dL (>60 Neg Risk); LDL Cholesterol, Calculated 111 mg/dL; Potassium 3.7 mmol/L (3.5-5.1); Sodium 135 mmol/L (136-145); Triglycerides 197 mg/dL (Less than 150)
[2024-11-21] MEDS: Ketorolac Tromethamine 30 MG (1 mL) VIAL IVP PRN (06:27)
[2024-11-21] MEDS: BuPROPion XL 150 MG ER.TAB PO SCH (08:19)
[2024-11-21] MEDS: Digoxin 0.125 MG TAB PO SCH (08:19)
[2024-11-21] MEDS: Pantoprazole 40 MG DR.TAB PO SCH (08:19)
[2024-11-21] MEDS: Atenolol 50 MG TAB PO SCH (08:20)
[2024-11-21] MEDS ORDERED: Non-Formulary Item 1 EACH (Atenolol [Atenolol] 100 MG Tablet) PO SCH (09:00)
[2024-11-21] MEDS ORDERED: Non-Formulary Item 1 EACH (Omeprazole [Omeprazole] 20 MG Tablet.Dr) PO SCH (09:00)
[2024-11-21 10:29] VITALS: BMI 24.8
[2024-11-21] MEDS: Simethicone Chewable 80 MG TAB PO PRN (20:27)
[2024-11-22 05:00] LABS: #Basophils 0.06 10x3/uL (0.0-0.2); #Eosinophils 0.16 10x3/uL (0.0-0.7); #Monocytes 0.50 10x3/uL (0.11-0.59); #Neutrophils 8.20 10x3/uL (1.40-6.50); %Basophils 0.5 % (0.0-1.0); %Eosinophils 1.4 % (0.0-10.0); %Lymphocytes 23.2 % (21.0-51.0); %Monocytes 4.3 % (0.0-10.0); %Neutrophils 70.2 % (42.0-75.0); Hematocrit 31.4 % (36.0-47.0); Hemoglobin 10.2 g/dL (12.0-16.0); Mean Corpuscular Hemoglobin 31.4 pg (27.0-31.0); Mean Corpuscular Volume 96.6 fL (78.0-98.0); Platelet Count 270 10x3/uL (130-400); Red Blood Cell (RBC) Count 3.25 mill/uL (4.20-5.40); White Blood Cell (WBC) Count 11.68 10x3/uL (4.8-10.8)
[2024-11-22 05:41] LABS: Anion Gap 10 mmol/L (10-20); BUN (Urea Nitrogen) 6 mg/dL (7.0-18.7); Calc. Creatinine Clearance 93 mL/min (70-130); Calcium 7.9 mg/dL (7.8-10.44); Carbon Dioxide 23 mmol/L (22-29); Chloride 110 mmol/L (98-107); Glucose 86 mg/dL (70-105); Lipase 136 U/L (8-78); Potassium 3.3 mmol/L (3.5-5.1); Sodium 140 mmol/L (136-145)
[2024-11-22] MEDS: Calcium Carbonate 500 MG ChewTAB PO PRN (05:47)
[2024-11-22 08:46] VITALS: TEMP 98.8
[2024-11-22] MEDS: Atenolol 50 MG TAB PO SCH (09:03)
[2024-11-22 09:04] VITALS: BP 122/85
== END 2024-11-22 13:17 | disposition home or self-care (01) | DRG 439 ==
LOC: ERS 16:44 → T4-A 21:34 → INTOOBSV 21:34 → OBSVTOIN 11-21 12:08
PROVIDERS: ADMIT Student in an Organized Health Care Education/Training Program; ATTEND Internal Medicine
DX: K85.90 Acute pancreatitis without necrosis or infection, unspecified (principal); E87.1 Hypo-osmolality and hyponatremia; N17.9 Acute kidney failure, unspecified; Z79.899 Other long term (current) drug therapy; Z91.012 Allergy to eggs; Z88.8 Allergy status to other drugs, medicaments and biological substances; F41.9 Anxiety disorder, unspecified; F31.9 Bipolar disorder, unspecified; F17.200 Nicotine dependence, unspecified, uncomplicated; Z98.890 Other specified postprocedural states; S90.452A Superficial foreign body, left great toe, initial encounter; I95.9 Hypotension, unspecified
CPT/HCPCS: 36415; 70450; 74177; 80048; 80053; 80061; 83605; 83690; 84484; 84703; 85025; 93005; 96361; 96374; 96375; 96376; J1200; J1885; J2270; J2272; J2405; J7030; J7120; Q9967

== ENCOUNTER 2025-01-13 21:19 | Emergency (ER) | payer OTHER ==
[~2025-01-13 21:19] MED LIST changes: +Iopamidol 370 76% 100 ML VIAL ONE; -Iopamidol-370 76% 500 ML MDV (1 ML CHARGE) ONE
[2025-01-13 23:13] LABS: #Basophils 0.06 10x3/uL (0.0-0.2); #Eosinophils 0.09 10x3/uL (0.0-0.7); #Monocytes 0.53 10x3/uL (0.11-0.59); #Neutrophils 5.43 10x3/uL (1.40-6.50); %Basophils 0.7 % (0.0-1.0); %Eosinophils 1.0 % (0.0-10.0); %Lymphocytes 31.7 % (21.0-51.0); %Monocytes 5.9 % (0.0-10.0); %Neutrophils 60.4 % (42.0-75.0); Hematocrit 34.6 % (36.0-47.0); Hemoglobin 11.4 g/dL (12.0-16.0); Mean Corpuscular Hemoglobin 31.3 pg (27.0-31.0); Mean Corpuscular Volume 95.1 fL (78.0-98.0); Platelet Count 246 10x3/uL (130-400); Red Blood Cell (RBC) Count 3.64 mill/uL (4.20-5.40); White Blood Cell (WBC) Count 8.99 10x3/uL (4.8-10.8)
[2025-01-13] MEDS ORDERED: Ondansetron PF 4 MG/2 ML Vial ONE (23:28)
[2025-01-13 23:46] LABS: BHCG - Serum Negative (NEGATIVE); Pregs Control Background? CLEAR/WHITE (CLR/WHITE); Pregs Control Bar Appear? YES (CONTROL BAR)
[2025-01-13 23:47] LABS: ALT (SGPT) 9 U/L (Less than 34); AST (SGOT) 21 U/L (11-34); Albumin 3.9 g/dL (3.1-4.5); Alkaline Phosphatase 56 U/L (40-110); Anion Gap 15 mmol/L (10-20); BUN (Urea Nitrogen) 13 mg/dL (7.0-18.7); Bilirubin, Total 0.3 mg/dL (0.3-1.2); Calc. Creatinine Clearance 0 mL/min (70-130); Calcium 9.1 mg/dL (7.8-10.44); Carbon Dioxide 23 mmol/L (22-29); Chloride 108 mmol/L (98-107); Globulin 2.9 g/dL (2.4-3.5); Glucose 81 mg/dL (70-105); Lipase 48 U/L (8-78); Potassium 3.6 mmol/L (3.5-5.1); Sodium 142 mmol/L (136-145)
== END 2025-01-14 01:54 | disposition home or self-care (01) ==
LOC: ERS 21:19
DX: K52.9 Noninfective gastroenteritis and colitis, unspecified (principal); I10 Essential (primary) hypertension; F17.210 Nicotine dependence, cigarettes, uncomplicated
CPT/HCPCS: 70450; 71045; 74177; 80053; 83690; 84484; 84703; 85025; 93005; 96374; 96375; 96376; J2270; J2405; Q9967

== ENCOUNTER 2025-03-13 11:55 | Emergency (ER) | payer OTHER ==
[2025-03-13] MEDS ORDERED: Ondansetron PF 4 MG/2 ML Vial ONE (13:19)
[2025-03-13] MEDS ORDERED: Iopamidol-370 76% 500 ML MDV (1 ML CHARGE) ONE (13:35)
[2025-03-13 13:48] LABS: #Basophils 0.11 10x3/uL (0.0-0.2); #Eosinophils 0.24 10x3/uL (0.0-0.7); #Monocytes 0.67 10x3/uL (0.11-0.59); #Neutrophils 10.36 10x3/uL (1.40-6.50); %Basophils 0.8 % (0.0-1.0); %Eosinophils 1.7 % (0.0-10.0); %Lymphocytes 16.9 % (21.0-51.0); %Monocytes 4.9 % (0.0-10.0); %Neutrophils 75.3 % (42.0-75.0); Hematocrit 37.3 % (36.0-47.0); Hemoglobin 11.8 g/dL (12.0-16.0); Mean Corpuscular Hemoglobin 31.6 pg (27.0-31.0); Mean Corpuscular Volume 100.0 fL (78.0-98.0); Platelet Count 395 10x3/uL (130-400); Red Blood Cell (RBC) Count 3.73 mill/uL (4.20-5.40); White Blood Cell (WBC) Count 13.77 10x3/uL (4.8-10.8)
[2025-03-13 13:57] LABS: BHCG - Serum Negative (NEGATIVE); Pregs Control Background? CLEAR/WHITE (CLR/WHITE); Pregs Control Bar Appear? YES (CONTROL BAR)
[2025-03-13 14:01] LABS: CAUTI Indications for Culture Acute Hematuria; Glucose, Urine (Dipstick) Normal (Negative); Leukocyte Negative Leu/uL (Negative); Protein, Urine (Dipstick) Negative (Neg-Trace); Specific Gravity, Urine 1.013 (1.002-1.036)
[2025-03-13 14:03] LABS: Bacteria/HPF 1+ HPF (None Seen)
[2025-03-13 14:04] LABS: ALT (SGPT) 7 U/L (Less than 34); AST (SGOT) 38 U/L (11-34); Albumin 3.8 g/dL (3.1-4.5); Alkaline Phosphatase 75 U/L (40-110); Anion Gap 11 mmol/L (10-20); BUN (Urea Nitrogen) 9 mg/dL (7.0-18.7); Bilirubin, Total 0.1 mg/dL (0.3-1.2); Calc. Creatinine Clearance 0 mL/min (70-130); Calcium 9.2 mg/dL (7.8-10.44); Carbon Dioxide 25 mmol/L (22-29); Chloride 109 mmol/L (98-107); Globulin 3.6 g/dL (2.4-3.5); Glucose 79 mg/dL (70-105); Lipase 51 U/L (8-78); Magnesium 2.0 mg/dL (1.6-2.6); Potassium 4.2 mmol/L (3.5-5.1); Sodium 141 mmol/L (136-145)
[2025-03-13 14:04] LABS: Urine Culture Reflex No No
[2025-03-13] MEDS ORDERED: Metoclopramide HCl 10 MG (2 mL) VIAL ONE (15:22)
[2025-03-13] MEDS ORDERED: HYDROcodone/Acetaminophen 5/325 mg Tablet ONE (17:11)
== END 2025-03-13 17:15 | disposition home or self-care (01) ==
LOC: ERS 11:55
DX: R10.31 Right lower quadrant pain (principal); R11.2 Nausea with vomiting, unspecified; I10 Essential (primary) hypertension; F17.210 Nicotine dependence, cigarettes, uncomplicated
CPT/HCPCS: 74177; 76856; 80053; 81001; 83605; 83690; 83735; 84703; 85025; 93976; 96361; 96374; 96375; J2270; J2405; J2765; J3010; Q9967